=== PATIENT | female | born 1940 | race Caucasian/White ===

== ENCOUNTER → 2018-03-24 09:17 | Outpatient (CLI) | payer MEDICARE, OTHER, SELFPAY ==
[2018-03-24 09:52] LABS: Add Manual Diff / Slide Review NO; Basophils Percent Auto 0.8 % (0-2); Hematocrit 35.3 % (36-46); Hemoglobin 11.9 g/dL (12.0-16.0); Lymphocytes Percent Auto 25.1 % (25-40); Mean Corpuscular HGB Conc 33.6 % (30-36); Mean Corpuscular Hemoglobin 27.1 PG (26-34); Mean Corpuscular Volume 80.5 fL (80-100); Monocytes Percent Auto 9.8 % (3-14); Neutrophils Absolute Auto 2400 /uL (3000-5900); Neutrophils Percent Auto 62.3 % (50-75); Platelet Count 237 X10^3/uL (150-400); Red Blood Cell Count 4.38 X10^6/uL (4.0-5.2); Red Cell Distribution Width 14.9 % (11.6-14.8); White Blood Cell Count 3.9 X10^3/uL (4.5-11.0)
[2018-03-24 11:28] LABS: Alanine Aminotransferase 20 IU/L (9-52); Albumin 3.5 g/dL (3.5-5.0); Albumin Globulin Ratio 1.2 (1.0-2.8); Alkaline Phosphatase 63 U/L (38-126); Aspartate Aminotransferase 21 IU/L (14-36); Bilirubin Total 0.2 mg/dL (0.2-1.3); Blood Urea Nitrogen 20 mg/dL (7-17); Calcium 8.9 mg/dL (8.4-10.2); Carbon Dioxide 33 mmol/L (22-32); Chloride 100 mmol/L (98-107); Estimated Glomerular Filt Rate > 60.0 mL/min (>60); Globulin 2.9 g/dL (1.7-4.1); Glucose 100 mg/dL (80-110); HEMOLYSIS < 15 (0-50); Sodium 140 mmol/L (137-145); Total Protein 6.4 g/dL (6.3-8.2)
== END ==
PROVIDERS: Family Provider Family Medicine; PCP Family Medicine; Visit Provider Obstetrics & Gynecology Gynecologic Oncology
DX: C54.1 Malignant neoplasm of endometrium (principal)
CPT/HCPCS: 36415; 80053; 85025

== ENCOUNTER → 2018-04-17 14:21 | Outpatient (CLI) | payer MEDICARE, OTHER, SELFPAY ==
[2018-04-17 14:47] LABS: Add Manual Diff / Slide Review NO; Basophils Percent Auto 1.2 % (0-2); Eosinophils Percent Auto 0.7 % (2-4); Hematocrit 34.9 % (36-46); Hemoglobin 11.5 g/dL (12.0-16.0); Lymphocytes Percent Auto 30.6 % (25-40); Mean Corpuscular Hemoglobin 26.8 PG (26-34); Mean Corpuscular Volume 81.4 fL (80-100); Monocytes Percent Auto 7.2 % (3-14); Neutrophils Absolute Auto 2300 /uL (3000-5900); Neutrophils Percent Auto 60.3 % (50-75); Platelet Count 225 X10^3/uL (150-400); Red Blood Cell Count 4.29 X10^6/uL (4.0-5.2); Red Cell Distribution Width 14.8 % (11.6-14.8); White Blood Cell Count 3.8 X10^3/uL (4.5-11.0)
[2018-04-17 15:02] LABS: Alanine Aminotransferase 24 IU/L (9-52); Albumin 3.4 g/dL (3.5-5.0); Albumin Globulin Ratio 1.3 (1.0-2.8); Alkaline Phosphatase 53 U/L (38-126); Aspartate Aminotransferase 19 IU/L (14-36); BUN Creatinine Ratio 21.4 (6-22); Bilirubin Total 0.2 mg/dL (0.2-1.3); Blood Urea Nitrogen 15 mg/dL (7-17); Calcium 8.8 mg/dL (8.4-10.2); Carbon Dioxide 33 mmol/L (22-32); Chloride 102 mmol/L (98-107); Estimated Glomerular Filt Rate > 60.0 mL/min (>60); Globulin 2.6 g/dL (1.7-4.1); Glucose 99 mg/dL (80-110); HEMOLYSIS < 15 (0-50); Potassium 3.7 mmol/L (3.4-5.1); Sodium 141 mmol/L (137-145)
== END ==
PROVIDERS: Family Provider Family Medicine; PCP Family Medicine; Visit Provider Obstetrics & Gynecology Gynecologic Oncology
DX: C54.1 Malignant neoplasm of endometrium (principal)
CPT/HCPCS: 36415; 80053; 85025

== ENCOUNTER → 2018-05-18 15:16 | Outpatient (CLI) | payer MEDICARE, OTHER, SELFPAY ==
[2018-05-18 16:52] LABS: Add Manual Diff / Slide Review NO; Basophils Percent Auto 1.6 % (0-2); Hematocrit 35.7 % (36-46); Hemoglobin 12.1 g/dL (12.0-16.0); Lymphocytes Percent Auto 25.8 % (25-40); Mean Corpuscular HGB Conc 33.8 % (30-36); Mean Corpuscular Hemoglobin 27.6 PG (26-34); Mean Corpuscular Volume 81.5 fL (80-100); Monocytes Percent Auto 7.2 % (3-14); Neutrophils Absolute Auto 3500 /uL (3000-5900); Neutrophils Percent Auto 64.4 % (50-75); Platelet Count 278 X10^3/uL (150-400); Red Blood Cell Count 4.38 X10^6/uL (4.0-5.2); Red Cell Distribution Width 14.3 % (11.6-14.8); White Blood Cell Count 5.4 X10^3/uL (4.5-11.0)
[2018-05-18 17:28] LABS: Alanine Aminotransferase 21 IU/L (9-52); Albumin 3.4 g/dL (3.5-5.0); Albumin Globulin Ratio 1.5 (1.0-2.8); Alkaline Phosphatase 73 U/L (38-126); Aspartate Aminotransferase 21 IU/L (14-36); Bilirubin Total 0.2 mg/dL (0.2-1.3); Blood Urea Nitrogen 14 mg/dL (7-17); Calcium 9.1 mg/dL (8.4-10.2); Carbon Dioxide 30 mmol/L (22-32); Chloride 103 mmol/L (98-107); Estimated Glomerular Filt Rate > 60.0 mL/min (>60); Globulin 2.3 g/dL (1.7-4.1); Glucose 91 mg/dL (80-110); HEMOLYSIS < 15 (0-50); Potassium 4.3 mmol/L (3.4-5.1); Sodium 140 mmol/L (137-145); Total Protein 5.7 g/dL (6.3-8.2)
== END ==
PROVIDERS: Family Provider Family Medicine; PCP Family Medicine; Visit Provider Obstetrics & Gynecology Gynecologic Oncology
DX: C54.1 Malignant neoplasm of endometrium (principal)
CPT/HCPCS: 36415; 80053; 85025

== ENCOUNTER → 2018-06-16 09:07 | Outpatient (CLI) | payer MEDICARE, OTHER, SELFPAY ==
[2018-06-16 11:38] LABS: Add Manual Diff / Slide Review NO; Eosinophils Percent Auto 2.3 % (2-4); Hematocrit 35.8 % (36-46); Hemoglobin 11.9 g/dL (12.0-16.0); Lymphocytes Percent Auto 27.7 % (25-40); Mean Corpuscular HGB Conc 33.2 % (30-36); Mean Corpuscular Hemoglobin 27.1 PG (26-34); Mean Corpuscular Volume 81.5 fL (80-100); Monocytes Percent Auto 9.3 % (3-14); Neutrophils Absolute Auto 2100 /uL (3000-5900); Neutrophils Percent Auto 59.7 % (50-75); Platelet Count 238 X10^3/uL (150-400); Red Blood Cell Count 4.38 X10^6/uL (4.0-5.2); White Blood Cell Count 3.6 X10^3/uL (4.5-11.0)
[2018-06-16 11:49] LABS: Alanine Aminotransferase 21 IU/L (9-52); Albumin 3.1 g/dL (3.5-5.0); Albumin Globulin Ratio 1.4 (1.0-2.8); Alkaline Phosphatase 59 U/L (38-126); Aspartate Aminotransferase 18 IU/L (14-36); Bilirubin Total 0.3 mg/dL (0.2-1.3); Blood Urea Nitrogen 14 mg/dL (7-17); Calcium 8.8 mg/dL (8.4-10.2); Carbon Dioxide 36 mmol/L (22-32); Chloride 103 mmol/L (98-107); Cholesterol 197 mg/dL (140-199); Estimated Glomerular Filt Rate > 60.0 mL/min (>60); Globulin 2.2 g/dL (1.7-4.1); Glucose 77 mg/dL (80-110); HDL Cholesterol 77 mg/dL (40-60); HEMOLYSIS < 15 (0-50); LDL Cholesterol Calculated 107 mg/dL (<100); Potassium 4.2 mmol/L (3.4-5.1); Sodium 144 mmol/L (137-145); Total Protein 5.3 g/dL (6.3-8.2); Triglycerides 67 mg/dL (35-150)
== END ==
PROVIDERS: Family Provider Family Medicine; PCP Family Medicine; Visit Provider Obstetrics & Gynecology Gynecologic Oncology
DX: E78.2 Mixed hyperlipidemia (principal)
CPT/HCPCS: 36415; 80053; 80061; 85025

== ENCOUNTER → 2018-07-13 14:23 | Outpatient (CLI) | payer MEDICARE, OTHER, SELFPAY ==
[2018-07-13 14:58] LABS: Add Manual Diff / Slide Review NO; Basophils Percent Auto 0.6 % (0-2); Eosinophils Percent Auto 0.8 % (2-4); Hematocrit 34.9 % (36-46); Hemoglobin 11.7 g/dL (12.0-16.0); Lymphocytes Percent Auto 22.7 % (25-40); Mean Corpuscular HGB Conc 33.6 % (30-36); Mean Corpuscular Hemoglobin 27.4 PG (26-34); Mean Corpuscular Volume 81.8 fL (80-100); Monocytes Percent Auto 7.3 % (3-14); Neutrophils Absolute Auto 3200 /uL (3000-5900); Neutrophils Percent Auto 68.6 % (50-75); Platelet Count 324 X10^3/uL (150-400); Red Blood Cell Count 4.27 X10^6/uL (4.0-5.2); Red Cell Distribution Width 13.7 % (11.6-14.8); White Blood Cell Count 4.7 X10^3/uL (4.5-11.0)
[2018-07-13 16:04] LABS: Alanine Aminotransferase 20 IU/L (9-52); Albumin 3.3 g/dL (3.5-5.0); Albumin Globulin Ratio 1.3 (1.0-2.8); Alkaline Phosphatase 78 U/L (38-126); Aspartate Aminotransferase 14 IU/L (14-36); BUN Creatinine Ratio 13.8 (6-22); Bilirubin Total 0.2 mg/dL (0.2-1.3); Blood Urea Nitrogen 11 mg/dL (7-17); Calcium 9.1 mg/dL (8.4-10.2); Carbon Dioxide 37 mmol/L (22-32); Chloride 99 mmol/L (98-107); Estimated Glomerular Filt Rate > 60.0 mL/min (>60); Globulin 2.6 g/dL (1.7-4.1); Glucose 75 mg/dL (80-110); HEMOLYSIS < 15 (0-50); Potassium 4.2 mmol/L (3.4-5.1); Sodium 142 mmol/L (137-145); Total Protein 5.9 g/dL (6.3-8.2)
== END ==
PROVIDERS: Family Provider Family Medicine; PCP Family Medicine; Visit Provider Obstetrics & Gynecology Gynecologic Oncology
DX: E78.2 Mixed hyperlipidemia (principal)
CPT/HCPCS: 36415; 80053; 85025

== ENCOUNTER → 2018-08-19 10:53 | Outpatient (CLI) | payer MEDICARE, OTHER, SELFPAY ==
[2018-08-19 11:40] LABS: Add Manual Diff / Slide Review NO; Basophils Percent Auto 0.7 % (0-2); Eosinophils Percent Auto 1.2 % (2-4); Hematocrit 35.6 % (36-46); Hemoglobin 11.8 g/dL (12.0-16.0); Lymphocytes Percent Auto 20.7 % (25-40); Mean Corpuscular HGB Conc 33.1 % (30-36); Mean Corpuscular Hemoglobin 26.8 PG (26-34); Monocytes Percent Auto 6.4 % (3-14); Neutrophils Absolute Auto 3600 /uL (3000-5900); Platelet Count 272 X10^3/uL (150-400); Red Blood Cell Count 4.39 X10^6/uL (4.0-5.2); Red Cell Distribution Width 14.2 % (11.6-14.8)
[2018-08-19 11:45] LABS: Alanine Aminotransferase 18 IU/L (9-52); Albumin 3.5 g/dL (3.5-5.0); Albumin Globulin Ratio 1.4 (1.0-2.8); Alkaline Phosphatase 66 U/L (38-126); Aspartate Aminotransferase 16 IU/L (14-36); BUN Creatinine Ratio 17.5 (6-22); Bilirubin Total 0.1 mg/dL (0.2-1.3); Blood Urea Nitrogen 14 mg/dL (7-17); Calcium 8.8 mg/dL (8.4-10.2); Carbon Dioxide 33 mmol/L (22-32); Chloride 99 mmol/L (98-107); Estimated Glomerular Filt Rate > 60.0 mL/min (>60); Globulin 2.5 g/dL (1.7-4.1); Glucose 90 mg/dL (80-110); HEMOLYSIS < 15 (0-50); Potassium 3.5 mmol/L (3.4-5.1); Sodium 140 mmol/L (137-145)
== END ==
PROVIDERS: Family Provider Family Medicine; PCP Family Medicine; Visit Provider Obstetrics & Gynecology Gynecologic Oncology
DX: C54.1 Malignant neoplasm of endometrium (principal)
CPT/HCPCS: 36415; 80053; 85025

== ENCOUNTER → 2018-09-01 11:50 | Outpatient (CLI) | payer MEDICARE, OTHER, SELFPAY ==
--- NOTE | 2018-09-01 | DI.MG.S_ITS ---
BILATERAL DIGITAL SCREENING MAMMOGRAM 3D/2D WITH CAD: 09/01/2018 CLINICAL: Routine screening. Comparison is made to exams dated: 06/13/2017 mammogram and 03/04/2016 mammogram - [facility]. The tissue of both breasts is heterogeneously dense. This may lower the sensitivity of mammography. Current study was also evaluated with a Computer Aided Detection (CAD) system. There are benign vascular calcifications in both breasts. No significant masses, calcifications, or other findings are seen in either breast. There has been no significant interval change. IMPRESSION: There is no mammographic evidence of malignancy. A 1 year screening mammogram is recommended. NOTE: For mammograms, a report in lay terms will be sent to the patient. Approximately 15% of breast malignancies will not be visualized mammographically. In the management of a palpable breast mass, a negative mammogram must not discourage biopsy of a clinically suspicious lesion. Electronically Signed By: Sonal mcclellan/messi:09/02/2018 12:39:36 copy to: Oralia Stahl MD, ph: [phone], fax: [phone] letter sent: Normal Exam ACR BI-RADS Category 2: Benign Finding(s) 3342F
== END ==
PROVIDERS: Family Provider Family Medicine; PCP Family Medicine; Visit Provider Family Medicine
DX: Z12.31 Encounter for screening mammogram for malignant neoplasm of breast (principal)
CPT/HCPCS: 77063; 77067

== ENCOUNTER → 2018-09-15 10:49 | Outpatient (CLI) | payer MEDICARE, OTHER, SELFPAY ==
[2018-09-15 12:00] LABS: Add Manual Diff / Slide Review NO; Basophils Percent Auto 0.7 % (0-2); Eosinophils Percent Auto 2.3 % (2-4); Hematocrit 33.9 % (36-46); Hemoglobin 11.3 g/dL (12.0-16.0); Mean Corpuscular HGB Conc 33.3 % (30-36); Mean Corpuscular Hemoglobin 26.8 PG (26-34); Mean Corpuscular Volume 80.3 fL (80-100); Neutrophils Absolute Auto 2700 /uL (3000-5900); Platelet Count 225 X10^3/uL (150-400); Red Blood Cell Count 4.23 X10^6/uL (4.0-5.2); Red Cell Distribution Width 14.6 % (11.6-14.8); White Blood Cell Count 4.4 X10^3/uL (4.5-11.0)
[2018-09-15 12:43] LABS: Alanine Aminotransferase 13 IU/L (9-52); Albumin 3.3 g/dL (3.5-5.0); Albumin Globulin Ratio 1.2 (1.0-2.8); Alkaline Phosphatase 67 U/L (38-126); Aspartate Aminotransferase 16 IU/L (14-36); BUN Creatinine Ratio 17.1 (6-22); Bilirubin Total 0.2 mg/dL (0.2-1.3); Blood Urea Nitrogen 12 mg/dL (7-17); Calcium 8.7 mg/dL (8.4-10.2); Carbon Dioxide 33 mmol/L (22-32); Chloride 101 mmol/L (98-107); Estimated Glomerular Filt Rate > 60.0 mL/min (>60); Globulin 2.7 g/dL (1.7-4.1); Glucose 65 mg/dL (80-110); HEMOLYSIS < 15 (0-50); Potassium 3.5 mmol/L (3.4-5.1); Sodium 143 mmol/L (137-145)
== END ==
PROVIDERS: Family Provider Family Medicine; PCP Family Medicine; Visit Provider Obstetrics & Gynecology Gynecologic Oncology
DX: E78.2 Mixed hyperlipidemia (principal)
CPT/HCPCS: 36415; 80053; 85025

== ENCOUNTER → 2018-09-25 09:05 | Outpatient (CLI) | payer MEDICARE, OTHER, SELFPAY ==
--- NOTE | 2018-09-25 | DI.CT.S_ITS ---
PROCEDURE: CT CHEST ABD PEL W CON INDICATIONS: ENDOMETRIAL SARCOMA TECHNIQUE: After the administration of intravenous contrast, 5 mm thick sections acquired from the lung apices to the symphysis. 5 mm coronal and sagittal reformats were performed, with additional 7 mm MIP reformats through the lungs. For radiation dose reduction, the following was used: automated exposure control, adjustment of mA and/or kV according to patient size. COMPARISON: [facility], CT, CHEST/ABD/PEL WITH CONTRAST, 03/24/2017, 8:59. FINDINGS: Image quality: Excellent. CHEST: Lungs and pleura: Previously noted 5 mm pulmonary nodules in the anterior right upper lobe on axial image 31 of series 4 and in the lateral right lower lobe on axial image 42 of series 4 are unchanged in size from comparison exam of 03/24/17. Two 3 mm pulmonary nodules in the left lower lobe on axial image 50 of series 4 are also unchanged from comparison exam of 03/24/17. No acute airspace opacities. No pleural effusions or pneumothorax. Central and peripheral airways appear patent and normal in caliber. Mediastinum: Heart size is normal. No pericardial effusion. No mediastinal or hilar adenopathy by size criteria. Thoracic aorta and central pulmonary arteries are normal in size. There is mild calcification of the aortic arch and branch vessels. Esophagus is normal in caliber. No hiatal hernia. Chest wall: No axillary or supraclavicular adenopathy by size criteria. Thyroid gland demonstrates a stable 9 mm hypoattenuating nodule in the left thyroid lobe. Right chest port catheter tip terminates within the cavoatrial junction.. ABDOMEN: Solid organs: There are multiple subcentimeter hypoattenuating foci within the liver, many of which are stable in appearance and unchanged in size when compared with prior exam of 03/24/17 and likely representing hepatic cysts or hemangiomas. Gallbladder is unremarkable. Biliary system is non dilated. Pancreas enhances normally. Spleen is normal in size and enhancement. 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 No adrenal nodules. Kidneys demonstrate normal size and enhancement, without hydronephrosis. Peritoneum and bowel: Bowel loops demonstrate normal wall thickness and caliber. No free fluid or air. Nodes and vessels: No retroperitoneal or mesenteric adenopathy by size criteria. Aorta and inferior vena cava are normal in size. Surgical clips are noted along the inferior vena cava and abdominal aorta, and their branches. Unchanged right pelvic venous stent noted. Miscellaneous: No ventral hernias. PELVIS: Genitourinary: Bladder wall thickness is normal. Miscellaneous: No inguinal hernias or adenopathy. Diffuse lower abdominal body wall edema noted. Subcutaneous emphysema within the anterior abdomen likely is secondary to prior injections. Bones: No suspicious bony lesions. No vertebral body compression fractures. There are mild multilevel degenerative changes of the spine with degenerative disc disease worst at L3-L4. IMPRESSION: Stable bilateral subcentimeter pulmonary nodules as described above when compared with prior exam of 03/24/17; recommend continued attention on followup exams. Multiple subcentimeter hypoattenuating foci within the liver, many of which are stable in appearance to prior exam. These likely represent hepatic cysts or hemangiomas with malignancy thought unlikely; recommend continued attention on followup exams. Otherwise, no other findings to suggest metastatic disease in the chest, abdomen, or pelvis. Dictated by: Tyrese Parsons M.D. on 09/25/2018 at 14:28 Approved by: Tyrese Parsons M.D. on 09/25/2018 at 14:59
== END ==
PROVIDERS: Family Provider Family Medicine; PCP Family Medicine; Visit Provider Obstetrics & Gynecology Gynecologic Oncology
DX: C54.1 Malignant neoplasm of endometrium (principal); E04.1 Nontoxic single thyroid nodule; R91.8 Other nonspecific abnormal finding of lung field; M51.36 Other intervertebral disc degeneration, lumbar region
CPT/HCPCS: 71260; 74177; Q9967

== ENCOUNTER → 2018-10-15 11:30 | Outpatient (CLI) | payer MEDICARE, OTHER, SELFPAY ==
[2018-10-15 14:14] LABS: Add Manual Diff / Slide Review NO; Basophils Percent Auto 1.3 % (0-2); Eosinophils Percent Auto 1.8 % (2-4); Hematocrit 35.8 % (36-46); Hemoglobin 11.9 g/dL (12.0-16.0); Lymphocytes Percent Auto 23.7 % (25-40); Mean Corpuscular HGB Conc 33.2 % (30-36); Mean Corpuscular Hemoglobin 26.6 PG (26-34); Monocytes Percent Auto 7.9 % (3-14); Neutrophils Absolute Auto 2800 /uL (1500-7000); Neutrophils Percent Auto 65.3 % (50-75); Platelet Count 279 X10^3/uL (150-400); Red Blood Cell Count 4.47 X10^6/uL (4.0-5.2); Red Cell Distribution Width 14.7 % (11.6-14.8); White Blood Cell Count 4.3 X10^3/uL (4.5-11.0)
[2018-10-15 14:31] LABS: Alanine Aminotransferase 17 IU/L (9-52); Albumin 3.6 g/dL (3.5-5.0); Albumin Globulin Ratio 1.4 (1.0-2.8); Alkaline Phosphatase 68 U/L (38-126); Aspartate Aminotransferase 17 IU/L (14-36); BUN Creatinine Ratio 16.3 (6-22); Blood Urea Nitrogen 13 mg/dL (7-17); Calcium 9.1 mg/dL (8.4-10.2); Carbon Dioxide 33 mmol/L (22-32); Chloride 100 mmol/L (98-107); Estimated Glomerular Filt Rate > 60.0 mL/min (>60); Globulin 2.5 g/dL (1.7-4.1); Glucose 80 mg/dL (80-110); HEMOLYSIS < 15 (0-50); Potassium 3.7 mmol/L (3.4-5.1); Sodium 142 mmol/L (137-145); Total Protein 6.1 g/dL (6.3-8.2)
[2018-10-15 14:33] LABS: Bilirubin Total < 0.1 mg/dL (0.2-1.3)
[2018-10-15 14:57] LABS: Cancer Antigen 125 11 U/mL (0-35)
== END ==
PROVIDERS: PCP Family Medicine; Visit Provider Obstetrics & Gynecology Gynecologic Oncology
DX: C54.1 Malignant neoplasm of endometrium (principal)
CPT/HCPCS: 36415; 80053; 85025; 86304

== ENCOUNTER → 2018-11-12 10:27 | Outpatient (CLI) | payer MEDICARE, OTHER, SELFPAY ==
[2018-11-12 11:11] LABS: Add Manual Diff / Slide Review NO; Basophils Absolute Auto 0 /uL (0-100); Eosinophils Absolute Auto 100 /uL (0-450); Hematocrit 38.1 % (36-46); Hemoglobin 12.5 g/dL (12.0-16.0); Lymphocytes Absolute Auto 900 /uL (1100-4500); Lymphocytes Percent Auto 24.4 % (25-40); Mean Corpuscular HGB Conc 32.9 % (30-36); Mean Corpuscular Hemoglobin 26.5 PG (26-34); Mean Corpuscular Volume 80.6 fL (80-100); Monocytes Absolute Auto 300 /uL (0-900); Monocytes Percent Auto 8.9 % (3-14); Neutrophils Absolute Auto 2400 /uL (1500-7000); Neutrophils Percent Auto 63.7 % (50-75); Platelet Count 252 X10^3/uL (150-400); Red Blood Cell Count 4.72 X10^6/uL (4.0-5.2); Red Cell Distribution Width 15.1 % (11.6-14.8); White Blood Cell Count 3.7 X10^3/uL (4.5-11.0)
[2018-11-12 11:19] LABS: Alanine Aminotransferase 16 IU/L (9-52); Albumin 3.9 g/dL (3.5-5.0); Albumin Globulin Ratio 1.3 (1.0-2.8); Alkaline Phosphatase 65 U/L (38-126); Aspartate Aminotransferase 19 IU/L (14-36); Bilirubin Total 0.3 mg/dL (0.2-1.3); Blood Urea Nitrogen 16 mg/dL (7-17); Calcium 9.2 mg/dL (8.4-10.2); Carbon Dioxide 31 mmol/L (22-32); Chloride 101 mmol/L (98-107); Estimated Glomerular Filt Rate > 60.0 mL/min (>60); Glucose 81 mg/dL (80-110); HEMOLYSIS < 15 (0-50); Potassium 3.8 mmol/L (3.4-5.1); Sodium 139 mmol/L (137-145); Total Protein 6.9 g/dL (6.3-8.2)
[2018-11-12 11:45] LABS: Cancer Antigen 125 12 U/mL (0-35)
== END ==
PROVIDERS: Family Provider Family Medicine; PCP Family Medicine; Visit Provider Physician Assistant
DX: C54.1 Malignant neoplasm of endometrium (principal)
CPT/HCPCS: 36415; 80053; 85025; 86304

== ENCOUNTER → 2018-11-23 08:05 | Outpatient (CLI) | payer MEDICARE, OTHER, SELFPAY ==
[2018-11-23 09:28] LABS: Cholesterol 221 mg/dL (140-199); HDL Cholesterol 92 mg/dL (40-60); LDL Cholesterol Calculated 114 mg/dL (<100); Triglycerides 76 mg/dL (35-150)
== END ==
PROVIDERS: Family Provider Family Medicine; PCP Family Medicine; Visit Provider Physician Assistant
DX: Z79.899 Other long term (current) drug therapy (principal); E78.2 Mixed hyperlipidemia
CPT/HCPCS: 36415; 80061

== ENCOUNTER → 2019-02-10 10:52 | Outpatient (CLI) | payer MEDICARE, OTHER, SELFPAY ==
[2019-02-10 12:08] LABS: Add Manual Diff / Slide Review NO; Basophils Absolute Auto 0 /uL (0-100); Eosinophils Absolute Auto 0 /uL (0-450); Eosinophils Percent Auto 1.2 % (2-4); Hematocrit 36.6 % (36-46); Hemoglobin 12.2 g/dL (12.0-16.0); Lymphocytes Absolute Auto 800 /uL (1100-4500); Mean Corpuscular HGB Conc 33.3 % (30-36); Mean Corpuscular Hemoglobin 26.8 PG (26-34); Mean Corpuscular Volume 80.5 fL (80-100); Monocytes Absolute Auto 300 /uL (0-900); Monocytes Percent Auto 9.4 % (3-14); Neutrophils Absolute Auto 2300 /uL (1500-7000); Neutrophils Percent Auto 65.4 % (50-75); Platelet Count 262 X10^3/uL (150-400); Red Blood Cell Count 4.55 X10^6/uL (4.0-5.2); Red Cell Distribution Width 14.7 % (11.6-14.8); White Blood Cell Count 3.6 X10^3/uL (4.5-11.0)
[2019-02-10 12:45] LABS: Alanine Aminotransferase 16 IU/L (9-52); Albumin 3.3 g/dL (3.5-5.0); Albumin Globulin Ratio 1.5 (1.0-2.8); Alkaline Phosphatase 73 U/L (38-126); Aspartate Aminotransferase 16 IU/L (14-36); BUN Creatinine Ratio 22.5 (6-22); Blood Urea Nitrogen 18 mg/dL (7-17); Calcium 8.9 mg/dL (8.4-10.2); Carbon Dioxide 31 mmol/L (22-32); Chloride 102 mmol/L (98-107); Estimated Glomerular Filt Rate > 60.0 mL/min (>60); Globulin 2.2 g/dL (1.7-4.1); HEMOLYSIS < 15 (0-50); Potassium 3.9 mmol/L (3.4-5.1); Sodium 139 mmol/L (137-145); Total Protein 5.5 g/dL (6.3-8.2)
[2019-02-10 12:53] LABS: Bilirubin Total < 0.1 mg/dL (0.2-1.3)
[2019-02-10 13:14] LABS: Cancer Antigen 125 9 U/mL (0-35)
[2019-02-10 13:29] LABS: Glucose 43 mg/dL (80-110)
== END ==
PROVIDERS: Family Provider Family Medicine; PCP Family Medicine; Visit Provider Physician Assistant
DX: C54.1 Malignant neoplasm of endometrium (principal)
CPT/HCPCS: 36415; 80053; 85025; 86304

== ENCOUNTER → 2019-02-11 11:39 | Outpatient (CLI) | payer MEDICARE, OTHER, SELFPAY ==
[2019-02-11 12:43] LABS: BUN Creatinine Ratio 17.8 (6-22); Blood Urea Nitrogen 16 mg/dL (7-17); Calcium 8.7 mg/dL (8.4-10.2); Carbon Dioxide 31 mmol/L (22-32); Chloride 101 mmol/L (98-107); Estimated Glomerular Filt Rate > 60.0 mL/min (>60); Glucose 68 mg/dL (80-110); HEMOLYSIS < 15 (0-50); Potassium 3.9 mmol/L (3.4-5.1); Sodium 139 mmol/L (137-145)
== END ==
PROVIDERS: Family Provider Family Medicine; PCP Family Medicine; Visit Provider Obstetrics & Gynecology Gynecologic Oncology
DX: E16.2 Hypoglycemia, unspecified (principal)
CPT/HCPCS: 36415; 80048

== ENCOUNTER → 2019-02-20 09:09 | Outpatient (CLI) | payer MEDICARE, OTHER, SELFPAY ==
[2019-02-20 09:52] LABS: Glucose 90 mg/dL (80-110)
[2019-02-23 14:56] LABS: Insulin Level Total 6.4 uIU/mL (2.0-19.6)
[2019-02-23 19:07] LABS: Beta- Hydroxybutyrate 0.06 mmol/L
== END ==
PROVIDERS: Family Provider Obstetrics & Gynecology Gynecologic Oncology; PCP Family Medicine; Visit Provider Family Medicine
DX: E16.2 Hypoglycemia, unspecified (principal)
CPT/HCPCS: 36415; 82009; 82947; 83525; 84206; 84681

== ENCOUNTER → 2019-03-12 10:22 | Outpatient (CLI) | payer MEDICARE, OTHER, SELFPAY ==
[2019-03-12 11:45] LABS: Add Manual Diff / Slide Review NO; Basophils Absolute Auto 100 /uL (0-100); Basophils Percent Auto 1.5 % (0-2); Eosinophils Absolute Auto 100 /uL (0-450); Eosinophils Percent Auto 1.9 % (2-4); Hematocrit 37.8 % (36-46); Hemoglobin 12.2 g/dL (12.0-16.0); Lymphocytes Absolute Auto 1100 /uL (1100-4500); Mean Corpuscular HGB Conc 32.4 % (30-36); Mean Corpuscular Hemoglobin 26.4 PG (26-34); Mean Corpuscular Volume 81.4 fL (80-100); Monocytes Absolute Auto 400 /uL (0-900); Monocytes Percent Auto 10.1 % (3-14); Neutrophils Absolute Auto 2100 /uL (1500-7000); Neutrophils Percent Auto 56.5 % (50-75); Platelet Count 245 X10^3/uL (150-400); Red Blood Cell Count 4.64 X10^6/uL (4.0-5.2); Red Cell Distribution Width 14.5 % (11.6-14.8); White Blood Cell Count 3.7 X10^3/uL (4.5-11.0)
[2019-03-12 12:09] LABS: Alanine Aminotransferase 10 IU/L (9-52); Albumin 3.7 g/dL (3.5-5.0); Albumin Globulin Ratio 1.4 (1.0-2.8); Alkaline Phosphatase 69 U/L (38-126); Aspartate Aminotransferase 19 IU/L (14-36); BUN Creatinine Ratio 22.5 (6-22); Bilirubin Total 0.4 mg/dL (0.2-1.3); Blood Urea Nitrogen 18 mg/dL (7-17); Calcium 9.4 mg/dL (8.4-10.2); Carbon Dioxide 33 mmol/L (22-32); Chloride 100 mmol/L (98-107); Cholesterol 208 mg/dL (140-199); Estimated Glomerular Filt Rate > 60.0 mL/min (>60); Globulin 2.7 g/dL (1.7-4.1); Glucose 82 mg/dL (80-110); HDL Cholesterol 75 mg/dL (40-60); HEMOLYSIS < 15 (0-50); LDL Cholesterol Calculated 111 mg/dL (<100); Potassium 4.3 mmol/L (3.4-5.1); Sodium 138 mmol/L (137-145); Total Protein 6.4 g/dL (6.3-8.2); Triglycerides 112 mg/dL (35-150)
[2019-03-12 12:39] LABS: Cancer Antigen 125 12 U/mL (0-35)
== END ==
PROVIDERS: Family Provider Obstetrics & Gynecology Gynecologic Oncology; PCP Family Medicine; Visit Provider Physician Assistant
DX: C54.1 Malignant neoplasm of endometrium (principal); E78.2 Mixed hyperlipidemia; Z79.899 Other long term (current) drug therapy
CPT/HCPCS: 36415; 80053; 80061; 85025; 86304

== ENCOUNTER → 2019-04-07 17:31 | Outpatient (CLI) | payer MEDICARE, OTHER, SELFPAY ==
[2019-04-07 18:03] LABS: Add Manual Diff / Slide Review NO; Basophils Absolute Auto 100 /uL (0-100); Basophils Percent Auto 1.1 % (0-2); Eosinophils Absolute Auto 100 /uL (0-450); Eosinophils Percent Auto 1.4 % (2-4); Hematocrit 37.5 % (36-46); Hemoglobin 12.3 g/dL (12.0-16.0); Lymphocytes Absolute Auto 1200 /uL (1100-4500); Lymphocytes Percent Auto 21.6 % (25-40); Mean Corpuscular HGB Conc 32.8 % (30-36); Mean Corpuscular Volume 82.3 fL (80-100); Monocytes Absolute Auto 400 /uL (0-900); Monocytes Percent Auto 7.6 % (3-14); Neutrophils Absolute Auto 3900 /uL (1500-7000); Neutrophils Percent Auto 68.3 % (50-75); Platelet Count 260 X10^3/uL (150-400); Red Blood Cell Count 4.56 X10^6/uL (4.0-5.2); Red Cell Distribution Width 14.7 % (11.6-14.8); White Blood Cell Count 5.7 X10^3/uL (4.5-11.0)
[2019-04-07 18:24] LABS: Hemoglobin A1C% w Est Avg Glu 5.1 % (4.0-6.0)
[2019-04-07 19:12] LABS: Alanine Aminotransferase 16 IU/L (9-52); Albumin 3.6 g/dL (3.5-5.0); Albumin Globulin Ratio 1.6 (1.0-2.8); Alkaline Phosphatase 66 U/L (38-126); Aspartate Aminotransferase 19 IU/L (14-36); BUN Creatinine Ratio 17.5 (6-22); Bilirubin Total 0.3 mg/dL (0.2-1.3); Blood Urea Nitrogen 14 mg/dL (7-17); Calcium 9.2 mg/dL (8.4-10.2); Carbon Dioxide 33 mmol/L (22-32); Chloride 102 mmol/L (98-107); Estimated Glomerular Filt Rate > 60.0 mL/min (>60); Globulin 2.3 g/dL (1.7-4.1); Glucose 88 mg/dL (80-110); HEMOLYSIS < 15 (0-50); Potassium 4.3 mmol/L (3.4-5.1); Sodium 139 mmol/L (137-145); Total Protein 5.9 g/dL (6.3-8.2)
[2019-04-07 19:18] LABS: Rheumatoid Factor < 8.6 IU/mL (<12.0)
[2019-04-07 19:42] LABS: Cancer Antigen 125 11 U/mL (0-35)
[2019-04-10 11:41] LABS: CCP Antibody (IgG) < 16 Units (< 20)
== END ==
PROVIDERS: Family Provider Physician Assistant; PCP Family Medicine; Visit Provider Family Medicine
DX: C54.1 Malignant neoplasm of endometrium (principal); E16.2 Hypoglycemia, unspecified; M25.541 Pain in joints of right hand; M25.542 Pain in joints of left hand
CPT/HCPCS: 36415; 80053; 83036; 85025; 86200; 86304; 86430

== ENCOUNTER → 2019-04-13 12:35 | Outpatient (CLI) | payer MEDICARE, OTHER, SELFPAY | PROVIDERS: PCP Family Medicine; Visit Provider Family Medicine | DX: M81.0 Age-related osteoporosis without current pathological fracture (principal); Z78.0 Asymptomatic menopausal state; Z82.62 Family history of osteoporosis | CPT/HCPCS: 77080 ==

== ENCOUNTER → 2019-05-06 16:41 | Outpatient (CLI) | payer MEDICARE, OTHER, SELFPAY ==
[2019-05-06 17:32] LABS: Add Manual Diff / Slide Review NO; Basophils Absolute Auto 0 /uL (0-100); Basophils Percent Auto 1.3 % (0-2); Eosinophils Absolute Auto 100 /uL (0-450); Eosinophils Percent Auto 1.7 % (2-4); Hemoglobin 12.4 g/dL (12.0-16.0); Lymphocytes Absolute Auto 1100 /uL (1100-4500); Lymphocytes Percent Auto 30.4 % (25-40); Mean Corpuscular HGB Conc 33.5 % (30-36); Mean Corpuscular Volume 80.6 fL (80-100); Monocytes Absolute Auto 300 /uL (0-900); Monocytes Percent Auto 8.2 % (3-14); Neutrophils Absolute Auto 2100 /uL (1500-7000); Neutrophils Percent Auto 58.4 % (50-75); Platelet Count 276 X10^3/uL (150-400); Red Blood Cell Count 4.58 X10^6/uL (4.0-5.2); Red Cell Distribution Width 14.3 % (11.6-14.8); White Blood Cell Count 3.6 X10^3/uL (4.5-11.0)
[2019-05-06 17:54] LABS: Alanine Aminotransferase 27 IU/L (9-52); Albumin 3.6 g/dL (3.5-5.0); Albumin Globulin Ratio 1.5 (1.0-2.8); Alkaline Phosphatase 68 U/L (38-126); Aspartate Aminotransferase 20 IU/L (14-36); Bilirubin Total 0.3 mg/dL (0.2-1.3); Blood Urea Nitrogen 18 mg/dL (7-17); Calcium 9.1 mg/dL (8.4-10.2); Carbon Dioxide 31 mmol/L (22-32); Chloride 98 mmol/L (98-107); Estimated Glomerular Filt Rate > 60.0 mL/min (>60); Globulin 2.4 g/dL (1.7-4.1); Glucose 80 mg/dL (80-110); HEMOLYSIS < 15 (0-50); Potassium 4.3 mmol/L (3.4-5.1); Sodium 134 mmol/L (137-145)
[2019-05-06 18:23] LABS: Cancer Antigen 125 12 U/mL (0-35)
== END ==
PROVIDERS: PCP Family Medicine; Visit Provider Physician Assistant
DX: C54.1 Malignant neoplasm of endometrium (principal); I82.0 Budd-Chiari syndrome
CPT/HCPCS: 36415; 80053; 85025; 86304

== ENCOUNTER → 2019-06-04 14:44 | Outpatient (CLI) | payer MEDICARE, OTHER, SELFPAY ==
[2019-06-04 15:38] LABS: Alanine Aminotransferase 9 IU/L (9-52); Albumin 3.5 g/dL (3.5-5.0); Albumin Globulin Ratio 1.2 (1.0-2.8); Alkaline Phosphatase 78 U/L (38-126); Aspartate Aminotransferase 15 IU/L (14-36); BUN Creatinine Ratio 13.3 (6-22); Bilirubin Total 0.4 mg/dL (0.2-1.3); Blood Urea Nitrogen 12 mg/dL (7-17); Calcium 8.9 mg/dL (8.4-10.2); Carbon Dioxide 33 mmol/L (22-32); Chloride 99 mmol/L (98-107); Estimated Glomerular Filt Rate > 60.0 mL/min (>60); Globulin 2.9 g/dL (1.7-4.1); Glucose 92 mg/dL (80-110); HEMOLYSIS < 15 (0-50); Potassium 4.1 mmol/L (3.4-5.1); Sodium 138 mmol/L (137-145); Total Protein 6.4 g/dL (6.3-8.2)
[2019-06-04 15:48] LABS: Add Manual Diff / Slide Review NO; Basophils Absolute Auto 0 /uL (0-100); Basophils Percent Auto 0.9 % (0-2); Eosinophils Absolute Auto 0 /uL (0-450); Eosinophils Percent Auto 0.9 % (2-4); Hematocrit 34.6 % (36-46); Hemoglobin 11.5 g/dL (12.0-16.0); Lymphocytes Absolute Auto 900 /uL (1100-4500); Lymphocytes Percent Auto 21.8 % (25-40); Mean Corpuscular HGB Conc 33.4 % (30-36); Mean Corpuscular Hemoglobin 26.9 PG (26-34); Mean Corpuscular Volume 80.4 fL (80-100); Monocytes Absolute Auto 300 /uL (0-900); Monocytes Percent Auto 6.5 % (3-14); Neutrophils Absolute Auto 2900 /uL (1500-7000); Neutrophils Percent Auto 69.9 % (50-75); Platelet Count 340 X10^3/uL (150-400); Red Cell Distribution Width 14.4 % (11.6-14.8); White Blood Cell Count 4.1 X10^3/uL (4.5-11.0)
[2019-06-04 16:07] LABS: Cancer Antigen 125 11 U/mL (0-35)
[2019-06-04 16:29] LABS: Vitamin D 25 Hydroxy (D3) 23.9 ng/mL (30.0-100.0)
== END ==
PROVIDERS: PCP Family Medicine; Visit Provider Obstetrics & Gynecology Gynecologic Oncology
DX: C54.1 Malignant neoplasm of endometrium (principal); M81.0 Age-related osteoporosis without current pathological fracture
CPT/HCPCS: 36415; 80053; 82306; 85025; 86304

== ENCOUNTER 2019-06-21 18:12 | Inpatient (IN) | payer MEDICARE, OTHER, SELFPAY ==
[2019-06-21] VITALS (7 sets, daily range): BP systolic 105–125; BP diastolic 55–65; PULSE 102–108; RESP 14–25; TEMP 38.3–39.6; O2SAT 92–100; BMI 28.0; BMI 27.4
--- NOTE | 2019-06-21 18:33 | ED_ITS ---
HPI - Skin/Abscess/Foreign Bdy General Chief complaint: Skin/Abscess/Foreign Body Stated complaint: Red coloring on rt lower buttock, feels crummy Time Seen by Provider: 06/21/19 18:14 Source: patient and family Mode of arrival: ambulatory Limitations: no limitations History of Present Illness HPI narrative: 78-year-old female nonsmoker with history of endometrial cancer on Lovenox presents with her for evaluation pain and redness on her right buttocks and feeling very poorly for the past few days. She admittedly he has had a poor appetite and has had little to eat or drink. She complains of feeling dizzy, weak and lightheaded as well as short of breath. She denies any cough. She admits to subjective fever and chills. She denies runny nose or sore throat. She is nauseated but denies any vomiting. She denies abdominal pain or dysuria, frequency or urgency. Her states the redness on her right buttock was notably worse yesterday. She does have a history of rapid progression of cellulitis MD complaint: rash Onset (ago): day(s) Tetanus up to date: yes Location: buttocks Severity: moderate Quality: burning Relieving factors: none Exacerbating factors: palpation Context: none Associated symptoms: fever, chills, nausea and malaise Treatments prior to arrival: none Related Data Home Medications Medication Instructions Recorded Confirmed everolimus (antineoplastic) 5 mg PO QDAY #30 tab 06/18/16 05/21/19 [Afinitor] letrozole [Femara] 2.5 mg PO QDAY #0 tab 06/18/16 05/21/19 [culterelle] #0 02/05/17 05/21/19 sennosides [senna] 8.6 mg PO QDAY PRN #0 02/05/17 05/21/19 calcium carbonate-vitamin D3 600 cap PO cap 04/06/18 05/21/19 mg (1,500 mg)-400 unit capsule cetirizine 10 mg capsule PO cap 04/06/18 05/21/19 Previous Rx's Medication Instructions Recorded enoxaparin 100 mg/mL subcutaneous 100 mg SUBCUT DAILY #90 each 11/02/18 syringe simvastatin 40 mg tablet 40 mg PO QAM #90 tab 02/10/19 diclofenac sodium 3 % topical gel 1 applictn TOP BID #100 gram 02/11/19 diclofenac sodium 1 % topical gel 2 gram TOP BID #100 gram 03/17/19 mirtazapine 30 mg tablet 45 mg PO QHS #90 tab 03/18/19 gabapentin 600 mg tablet 600 mg PO DAILY #450 tab 04/15/19 irbesartan 300 mg tablet 300 mg PO DAILY #90 tab 04/15/19 omeprazole 20 mg capsule,delayed 20 mg PO QDAY PRN #90 cap 04/15/19 release duloxetine 20 mg capsule,delayed 40 mg PO DAILY #180 cap 04/27/19 release cholecalciferol (vitamin D3) 50,000 unit PO QWEEK #10 cap 06/10/19 50,000 unit capsule mirtazapine 15 mg tablet 15 mg PO DAILY #90 tab 06/18/19 oxycodone 10 mg tablet,crush 10 mg PO BID #60 tab 06/18/19 resistant,extended release 12 hr oxycodone 5 mg tablet 5 mg PO Q4H PRN #180 tab 06/18/19 Allergies Allergy/AdvReac Type Severity Reaction Status Date / Time Penicillins [PENICILLINS] Allergy Unknown Verified 06/21/19 18:33 Review of Systems Review of Systems ROS Unobtainable: All systems reviewed & are unremarkable except as noted in HPI and below Constitutional Constitutional: Reports chills, Denies fatigue, Reports fever(s), Denies frequent falls, Denies lethargy, Reports poor appetite and Reports weakness Eyes Eyes: Denies change in vision, Denies eye discharge, Denies irritation and Denies loss of vision ENT Ears, Nose, Mouth, and Throat: Denies change in voice, Denies dizziness, Denies neck pain, Denies sore throat and Denies throat swelling Cardiovascular Cardiovascular: Denies chest pain, Denies irregular heart rhythm, Denies lightheadedness, Denies palpitations, Denies dyspnea, Denies dyspnea on exertion and Denies orthopnea Respiratory Respiratory: Denies cough, Denies dyspnea, Denies dyspnea on exertion and Denies wheezing Gastrointestinal Gastrointestinal: Denies abdominal pain, Denies change in bowel habits, Denies diarrhea, Denies nausea and Denies vomiting Genitourinary Genitourinary: Denies hematuria, Denies flank pain, Denies urinary incontinence and Denies urinary urgency Musculoskeletal Musculoskeletal: Denies back pain, Denies muscle weakness, Denies neck pain, Denies numbness and Denies tingling Integumentary/Breasts Skin/Breast: Denies pruritus, Reports erythema, Reports skin pain and Denies wounds Neurologic Neurologic: Denies behavioral changes, Denies confusion, Denies dizziness, Denies frequent falls, Denies loss of vision, Denies numbness, Denies tingling and Reports weakness Psychiatric Psychiatric: Denies anxiety, Denies behavioral changes, Denies confusion, Denies depression, Denies homicidal ideation and Denies suicidal ideation Endocrine Endocrine: Denies fatigue, Denies flushing and Denies palpitations Hematologic/Lymphatic Hematologic/Lymphatic: Denies easy bruising Allergic/Immunologic Allergic/Immunologic: Denies urticaria, Denies throat swelling and Denies wheezing REPLACED BY [facility] Medical History Chickenpox (Resolved) Chronic cough (Chronic ~2014) Chronic pain of both lower extremities (01/22/18) Colon polyps (Chronic ~2011) 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 Well- nourished, well-developed patient, in moderate distress. Clearly not feeling well, alert but confused, poor historian HEAD: Atraumatic. Normocephalic. EYES: Pupils equal round and reactive. Extraocular motions intact. No scleral icterus. No injection or drainage. ENT: Dry mucous membranes Nose without bleeding, purulent drainage. Throat wit hout erythema, tonsillar hypertrophy or exudate. Airway patent. NECK: Trachea midline. Non tender CARDIOVASCULAR: Tachycardic but regular rhythm without murmurs, gallops, or rubs. RESPIRATORY: Clear to auscultation. Breath sounds equal bilaterally. No wheezes, rales, or rhonchi. GASTROINTESTINAL: Abdomen soft, non-tender, nondistended. EXTREMITIES: No edema or joint tenderness. BACK: Nontender without deformity or crepitance. No flank tenderness. NEURO: AOx3, but confused SKIN: Right buttock examined in the presence of female nursing corn grower and patient . Minimal erythema on the right buttock including gluteal fold, no induration or drainage noted. viewed and states it looked worse yesterday Initial Vital Signs Initial Vital Signs: Vital Signs Temperature 103.3 F H 06/21/19 18:31 Pulse Rate 108 H 06/21/19 18:31 Respiratory Rate 20 06/21/19 18:31 Blood Pressure 125/57 L 06/21/19 18:31 Pulse Oximetry 92 06/21/19 18:31 Course Orders Ordered: ED Orders 06/21/19 18:34 EKG-12 Lead Stat RT Consult Eval and Treat Now 06/21/19 18:38 Complete Blood Count AUTO DIFF Stat Comprehensive Metabolic Panel Stat Lactate (Lactic Acid) Stat Lipase Stat Partial Thromboplastin Time Stat Procalcitonin Stat Prothrombin Time INR Stat 06/21/19 18:41 XR chest 2V Stat 06/21/19 19:25 Blood Culture Stat 06/21/19 20:30 Urine Culture Stat Urine Microscopic Stat 06/21/19 20:55 CT angio chest PE protocol Stat 06/21/19 22:11 Respiratory Panel (Film Array) Stat Acetaminophen (Tylenol) 650 mg PO Q6HR PRN PRN Reason: As Needed for Fever/Mild Pain Al Hydrox/Mg Hydrox/Simethicone (Maalox Plus) 30 ml PO Q6HR PRN PRN Reason: Dyspepsia Calcium Carbonate (Tums) 1,000 mg PO Q4HR PRN PRN Reason: Dyspepsia Duloxetine HCl (Cymbalta) 40 mg PO DAILY [facility] Enoxaparin Sodium (Lovenox) 100 mg SUBCUT DAILY [facility] Gabapentin (Neurontin) 600 mg PO BEDTIME KEVIN Sodium Chloride (Normal Saline 0.9%) 1,000 mls @ 100 mls/hr IV CONT [facility] Irbesartan (Avapro) 300 mg PO DAILY [facility] Letrozole (Femara) 2.5 mg PO QDAY [facility] Mirtazapine (Remeron) 45 mg PO QHS KEVIN Naloxone HCl (Narcan) 0.2 mg IV Q2MIN PRN PRN Reason: Opiate Reversal Non-Formulary Medication (Cetirizine [Zyrtec]) 10 mg PO DAILY KEVIN Non-Formulary Medication (Everolimus (Antineoplastic) [Afinitor]) 5 mg PO QDAY KEVIN Ondansetron HCl (Zofran) 4 mg IV Q8HR PRN PRN Reason: Nausea And Vomiting Ondansetron HCl (Zofran Odt) 4 mg PO Q8HR PRN PRN Reason: Nausea And Vomiting Oxycodone HCl (Percolone) 10 mg PO Q4H PRN PRN Reason: pain Oxycodone HCl (Oxycontin) 10 mg PO BID KEVIN Pantoprazole Sodium (Protonix) 20 mg PO 0700 KEVIN Simvastatin (Zocor) 40 mg PO BEDTIME KEVIN Discontinued Medications Sodium Chloride (Normal Saline 0.9%) 1,000 mls @ 1,000 mls/hr IV BOLUS ONE Stop: 06/21/19 19:33 Last Infusion: 06/21/19 20:02 Dose: 0 mls/hr [facility] Admin: 06/21/19 18:47 Dose: 1,000 mls/hr Documented by: VIANEY Levofloxacin (Levaquin) 750 mg in 150 mls @ 100 mls/hr IV NOW ONE Stop: 06/21/19 21:14 Last Infusion: 06/21/19 21:50 Dose: 0 mls/hr [facility] Infusion: 06/21/19 21:23 Dose: 100 mls/hr Documented by: [facility] Infusion: 06/21/19 21:09 Dose: 0 mls/hr [facility]: [facility] Admin: 06/21/19 19:51 Dose: 100 mls/hr [facility] Sodium Chloride (Normal Saline 0.9%) 1,000 mls @ 1,000 mls/hr IV BOLUS ONE Stop: 06/21/19 20:47 Last Infusion: 06/21/19 21:09 Dose: 0 mls/hr [facility]: [facility] Admin: 06/21/19 19:51 Dose: 1,000 mls/hr [facility]: [facility] Cefazolin Sodium/Dextrose (Ancef) 1 gm in 50 mls @ 200 mls/hr IV NOW ONE Stop: 06/21/19 21:07 Last Infusion: 06/21/19 22:18 Dose: 0 mls/hr Documented by: Admin: 06/21/19 21:52 Dose: 200 mls/hr Documented by: GERARDO Consultations Consultation #1: Dr. Jackson happy to accept on her service Vital Signs Vital signs: Vital Signs - 8 hr 06/21/19 18:31 06/21/19 19:15 06/21/19 19:30 Temperature 103.3 F H Pulse Rate 108 H 104 H 103 H Respiratory Rate 20 14 19 Blood Pressure 125/57 L Blood Pressure [Left Arm] 105/55 L Pulse Oximetry 92 100 95 06/21/19 20:00 06/21/19 21:22 Temperature Pulse Rate 106 H 102 H Respiratory Rate 25 H Blood Pressure Blood Pressure [Left Arm] 106/65 110/58 L Pulse Oximetry 98 99 MDM - Skin/Abscess/Foreign Bdy Lab Data Result diagrams: 06/21/19 18:38 06/21/19 18:38 Labs: Lab Results 06/21/19 06/21/19 06/21/19 Range/Units 18:38 18:38 18:38 WBC 9.5 (4.5-11.0) X10^3/uL RBC 4.53 (4.0-5.2) X10^6/uL Hgb 11.9 L (12.0-16.0) g/dL Hct 36.0 (36-46) % MCV 79.6 L (80-100) fL MCH 26.4 (26-34) PG MCHC 33.1 (30-36) % RDW 14.5 (11.6-14.8) % Plt Count 213 (150-400) X10^3/uL Neut % (Auto) 94.0 H (50-75) % Lymph % (Auto) 2.9 L (25-40) % Creek % (Auto) 2.6 L (3-14) % Eos % (Auto) 0.0 L (2-4) % Baso % (Auto) 0.5 (0-2) % Neut # (Auto) 9000 H (1503-1158) /uL Lymph # (Auto) 300 L (2805-6008) /uL Creek # (Auto) 200 (0-900) /uL Eos # (Auto) 0 (0-450) /uL Baso # (Auto) 0 (0-100) /uL PT 12.9 H (10.1-12.7) SECONDS INR 1.1 (0.9-1.3) APTT 37 H (26.4-36.2) SECONDS Sodium (137-145) mmol/L Potassium (3.4-5.1) mmol/L Chloride (98-107) mmol/L Carbon Dioxide (22-32) mmol/L BUN (7-17) mg/dL Creatinine (0.52-1.04) mg/dL Estimated GFR (>60) mL/min BUN/Creatinine Ratio (6-22) Glucose (80-110) mg/dL Lactate (0.7-2.1) mmol/L Calcium (8.4-10.2) mg/dL Total Bilirubin (0.2-1.3) mg/dL AST (14-36) IU/L ALT (9-52) IU/L Alkaline Phosphatase (38-126) U/L Total Protein (6.3-8.2) g/dL Albumin (3.5-5.0) g/dL Globulin (1.7-4.1) g/dL Albumin/Globulin Ratio (1.0-2.8) Lipase (23-300) U/L Procalcitonin 3.87 H (<0.5) ng/mL Urine RBC (0-5/HPF) Urine WBC (0-5/HPF) Amorphous Sediment Urine Bacteria (None) Hyaline Casts (None) Urine Mucus (Negative) Ur Culture Indicated? 06/21/19 06/21/19 06/21/19 Range/Units 18:38 18:38 20:30 WBC (4.5-11.0) X10^3/uL RBC (4.0-5.2) X10^6/uL Hgb (12.0-16.0) g/dL Hct (36-46) % MCV (80-100) fL MCH (26-34) PG MCHC (30-36) % RDW (11.6-14.8) % Plt Count (150-400) X10^3/uL Neut % (Auto) (50-75) % Lymph % (Auto) (25-40) % Creek % (Auto) (3-14) % Eos % (Auto) (2-4) % Baso % (Auto) (0-2) % Neut # (Auto) (1206-5294) /uL Lymph # (Auto) (2569-8898) /uL Creek # (Auto) (0-900) /uL Eos # (Auto) (0-450) /uL Baso # (Auto) (0-100) /uL PT (10.1-12.7) SECONDS INR (0.9-1.3) APTT (26.4-36.2) SECONDS Sodium 135 L (137-145) mmol/L Potassium 4.0 (3.4-5.1) mmol/L Chloride 96 L (98-107) mmol/L Carbon Dioxide 30 (22-32) mmol/L BUN 13 (7-17) mg/dL Creatinine 0.90 (0.52-1.04) mg/dL Estimated GFR > 60.0 (>60) mL/min BUN/Creatinine Ratio 14.4 (6-22) Glucose 122 H (80-110) mg/dL Lactate 1.4 (0.7-2.1) mmol/L Calcium 9.2 (8.4-10.2) mg/dL Total Bilirubin 0.4 (0.2-1.3) mg/dL AST 27 (14-36) IU/L ALT 9 (9-52) IU/L Alkaline Phosphatase 78 (38-126) U/L Total Protein 6.7 (6.3-8.2) g/dL Albumin 3.7 (3.5-5.0) g/dL Globulin 3.0 (1.7-4.1) g/dL Albumin/Globulin Ratio 1.2 (1.0-2.8) Lipase 34 (23-300) U/L Procalcitonin (<0.5) ng/mL Urine RBC 10-30/hpf H (0-5/HPF) Urine WBC None seen (0-5/HPF) Amorphous Sediment 4+ Urine Bacteria Occasional (0-1) (None) Hyaline Casts 0-1/lpf (None) Urine Mucus 2+ H (Negative) Ur Culture Indicated? Specimen cultured Urine Dip Bedside Urine Glucose Negative Bedside Urine Bilirubin - Negative Bedside Urine Ketone +++ 80 Urine Specific [place] 1.025 Bedside Urine Occult Blood +++ Bedside Urine pH 5.5 Bedside Urine Protein ++ 100 Bedside Urine Nitrite - Negative Bedside Urine Leukocytes +/- 15 Esterase MDM Narrative Medical decision making narrative: 78-year-old female febrile, tachycardic and hypoxic (down to 88% on room air) with known history of endometrial cancer, on daily chemotherapy presents with a painful right buttock for the past few days. She does have a history of cellulitis and though the exam isn't overwhelming she clearly has an infectious process. Procalcitonin is elevated, CT scan would suggest no pulmonary embolism or pneumonia. Patient given fluids, IV antibiotics and will require hospitalization for stabilization and further denise acterization of her illness Discharge Plan Departure Patient Disposition: Admitted As Inpatient Clinical Impression: Sepsis Qualifiers: Sepsis type: sepsis due to unspecified organism Sepsis acute organ dysfunction status: without acute organ dysfunction Qualified Code(s): A41.9 - Sepsis, unspecified organism Admit Date/Time: 06/21/19 21:58 Admit Provider: Evelyne Jackson
--- NOTE | 2019-06-21 18:41 | DI.RAD.S_ITS ---
PROCEDURE: XR CHEST 2V INDICATIONS: fever, tachycardia, sepsis, on chemo TECHNIQUE: 2 views of the chest were acquired. COMPARISON: [facility], , CHEST 1 VIEW, 04/02/2017, 16:17. FINDINGS: Surgical changes and devices: There is a Port-A-Cath on the right with the tip in the distal SVC. Lungs and pleura: Lungs are clear. Biapical scarring. No pleural effusions or pneumothorax. Mediastinum: Mediastinal contours are normal. Heart size is normal. Bones and chest wall: No suspicious bony abnormalities. Soft tissues appear unremarkable. IMPRESSION: No active cardiopulmonary disease. Dictated by: Hipolito Garces M.D. on 06/21/2019 at 19:22 Approved by: Hipolito Garces M.D. on 06/21/2019 at 19:26
[2019-06-21] MEDS: SODIUM CHLORIDE 0.9% 1,000 ML 1000 ML IV ×2 (18:47→19:51)
--- NOTE | 2019-06-21 18:49 | PC.NURSE ---
pt arrived to ED POV with , reports feeling crummy CA pt and undergoing PO chemo, temp TMax 103. reports taking tylenol at home. reports rash on R buttock. no rash noted to assessment. pt appears confused which is not baseline, poor historian. PCP is Manuel. IV placed and septic lab work completed, placed on cardiac monitoring and cont POX. IVF infusing per EMR. Dr Sanford in to see.
[2019-06-21 18:50] LABS: Add Manual Diff / Slide Review NO; Basophils Absolute Auto 0 /uL (0-100); Basophils Percent Auto 0.5 % (0-2); Eosinophils Absolute Auto 0 /uL (0-450); Hemoglobin 11.9 g/dL (12.0-16.0); Lymphocytes Absolute Auto 300 /uL (1100-4500); Lymphocytes Percent Auto 2.9 % (25-40); Mean Corpuscular HGB Conc 33.1 % (30-36); Mean Corpuscular Hemoglobin 26.4 PG (26-34); Mean Corpuscular Volume 79.6 fL (80-100); Monocytes Absolute Auto 200 /uL (0-900); Monocytes Percent Auto 2.6 % (3-14); Neutrophils Absolute Auto 9000 /uL (1500-7000); Platelet Count 213 X10^3/uL (150-400); Red Blood Cell Count 4.53 X10^6/uL (4.0-5.2); Red Cell Distribution Width 14.5 % (11.6-14.8); White Blood Cell Count 9.5 X10^3/uL (4.5-11.0)
[2019-06-21 18:57] LABS: INR 1.1 (0.9-1.3); Prothrombin Time 12.9 SECONDS (10.1-12.7)
[2019-06-21 18:58] LABS: HEMOLYSIS < 15 (0-50)
[2019-06-21 18:59] LABS: PTT Partial Thromboplastin Tim 37 SECONDS (26.4-36.2)
[2019-06-21 19:01] LABS: Alanine Aminotransferase 9 IU/L (9-52); Albumin 3.7 g/dL (3.5-5.0); Albumin Globulin Ratio 1.2 (1.0-2.8); Alkaline Phosphatase 78 U/L (38-126); Aspartate Aminotransferase 27 IU/L (14-36); BUN Creatinine Ratio 14.4 (6-22); Bilirubin Total 0.4 mg/dL (0.2-1.3); Blood Urea Nitrogen 13 mg/dL (7-17); Calcium 9.2 mg/dL (8.4-10.2); Carbon Dioxide 30 mmol/L (22-32); Chloride 96 mmol/L (98-107); Estimated Glomerular Filt Rate > 60.0 mL/min (>60); Glucose 122 mg/dL (80-110); Lactate (Lactic Acid) 1.4 mmol/L (0.7-2.1); Lipase 34 U/L (23-300); Sodium 135 mmol/L (137-145); Total Protein 6.7 g/dL (6.3-8.2)
[2019-06-21 19:22] LABS: Procalcitonin 3.87 ng/mL (<0.5)
[2019-06-21] MEDS: levoFLOXacin 750 MG/150 ML PIGGYBACK 100 MG IV (19:51)
[2019-06-21 20:41] LABS: WBC Urine None Seen (0-5/HPF)
[2019-06-21 20:47] LABS: Amorphous Sediment Urine 4+; Bacteria Urine Occasional (0-1); Culture Indicated Urine Specimen Cultured; Hyaline Casts Urine 0-1/LPF; Mucus Urine 2+ (Negative); RBC Urine 10-30/HPF (0-5/HPF)
--- NOTE | 2019-06-21 20:51 | PC.NURSE ---
report called to Neftali
--- NOTE | 2019-06-21 20:55 | DI.CT.S_ITS ---
PROCEDURE: CT ANGIO CHEST PE PROTOCOL INDICATIONS: Shortness of breath, hypoxia, tachycardia, history of cancer TECHNIQUE: After the administration of intravenous contrast, 2 mm thick sections acquired from the pulmonary apices to the posterior costophrenic angles. 3-dimensional maximum intensity projection (MIP) coronal and sagittal reformats were then acquired through the thorax. For radiation dose reduction, the following was used: automated exposure control, adjustment of mA and/or kV according to patient size. COMPARISON: Outside Facility, RG, CT CHEST/ABD/PEL W/CONTRAST, 12/25/2016, 7:41. [facility], CT, CHEST/ABD/PEL WITH CONTRAST, 03/24/2017, 8:59. [facility], CT, CT CHEST ABD PEL W CON, 09/25/2018, 9:31. [facility], CR, XR CHEST 2V, 06/21/2019, 18:49. FINDINGS: Image quality: Excellent. Pulmonary arteries: Pulmonary arteries are normal in size, and demonstrate no intraluminal filling defects to suggest central pulmonary embolism. Lungs and pleura: Bilateral septal thickening and small pleural effusions, suggesting mild pulmonary edema. There is 4 mm in the right upper lobe (series 5 image 133). There are a couple of 5 mm nodules, one in the right middle lobe (series 5 image 156) and one in the right lower lobe (series 5 image 165). The right lower lobe nodule appears unchanged. The right upper lobe and right middle lobe nodules are not definitively seen on the last exam. Small nodules in the left lower lobe described on the last CT are not visualized on the current exam. No pneumothorax. Central and peripheral airways are patent. Mediastinum: Heart size is normal, without pericardial effusion. No mediastinal or hilar adenopathy. Thoracic aorta is normal in caliber and enhancement. Esophagus is normal in caliber, without hiatal hernia. Bones and chest wall: No suspicious bony lesions. Ribs and thoracic spine appear intact throughout. The left thyroid lobe is enlarged and heterogeneous. No axillary or supraclavicular adenopathy. There is a Port-A-Cath in the right anterior chest with the tip in SVC. Abdomen: Visualized upper abdominal solid organs appear normal in the early arterial phase of enhancement. IMPRESSION: 1. No evidence for central pulmonary embolism. 2. Bilateral septal thickening and small pleural effusions suggesting pulmonary edema. 3. Small right lung nodules. One nodule appears unchanged. Two nodules were not definitively seen on the last exam. Recommend short-term CT followup in 3 months. 4. Enlarged heterogeneous left thyroid lobe. Thyroid ultrasound is suggested for followup. The result was discussed with Dr. Sanford. Dictated by: Hipolito Garces M.D. on 06/21/2019 at 21:26 Approved by: Hipolito Garces M.D. on 06/21/2019 at 21:54
--- NOTE | 2019-06-21 21:10 | PC.NURSE ---
pt to CT with tech, antibx paused
[2019-06-21] MEDS: CEFAZOLIN 1 GM/50 ML FROZ.PIGGY IV (21:52)
--- NOTE | 2019-06-21 22:23 | PC.NURSE ---
viral panel sent to lab
[2019-06-21 23:40] LABS: Adenovirus Not Detected (Not Detect); Bordetella pertussis Not Detected (Not Detect); Chlamydophila pneumoniae Not Detected (Not Detect); Coronavirus 229E Not Detected (Not Detect); Coronavirus HKU1 Not Detected (Not Detect); Coronavirus NL 63 Not Detected (Not Detect); Coronavirus OC43 Not Detected (Not Detect); Human Metapneumovirus Not Detected (Not Detect); Human Rhinovirus/Enterovirus Not Detected (Not Detect); Influenza A Not Detected (Not Detect); Influenza B Not Detected (Not Detect); Mycoplasma pneumoniae Not Detected (Not Detect); Parainfluenza Virus 1 Not Detected (Not Detect); Parainfluenza Virus 2 Not Detected (Not Detect); Parainfluenza Virus 3 Not Detected (Not Detect); Parainfluenza Virus 4 Not Detected (Not Detect); Respiratory Syncytial Virus Not Detected (Not Detect)
[2019-06-21] MEDS: SODIUM CHLORIDE 0.9% 1,000 ML 100 ML IV (23:50)
[2019-06-22] VITALS (8 sets, daily range): BP systolic 89–119; BP diastolic 52–61; PULSE 78–95; RESP 16–18; TEMP 36.6–37.6; O2SAT 92–98
[2019-06-22 05:58] LABS: Add Manual Diff / Slide Review NO; Basophils Absolute Auto 0 /uL (0-100); Basophils Percent Auto 0.3 % (0-2); Eosinophils Absolute Auto 0 /uL (0-450); Hematocrit 29.6 % (36-46); Hemoglobin 9.7 g/dL (12.0-16.0); Lymphocytes Absolute Auto 700 /uL (1100-4500); Lymphocytes Percent Auto 9.9 % (25-40); Mean Corpuscular HGB Conc 32.9 % (30-36); Mean Corpuscular Hemoglobin 26.1 PG (26-34); Mean Corpuscular Volume 79.5 fL (80-100); Monocytes Absolute Auto 500 /uL (0-900); Monocytes Percent Auto 6.9 % (3-14); Neutrophils Absolute Auto 5500 /uL (1500-7000); Neutrophils Percent Auto 82.9 % (50-75); Platelet Count 174 X10^3/uL (150-400); Red Blood Cell Count 3.73 X10^6/uL (4.0-5.2); Red Cell Distribution Width 14.6 % (11.6-14.8); White Blood Cell Count 6.6 X10^3/uL (4.5-11.0)
[2019-06-22 06:04] LABS: BUN Creatinine Ratio 13.3 (6-22); Blood Urea Nitrogen 12 mg/dL (7-17); Calcium 8.2 mg/dL (8.4-10.2); Carbon Dioxide 30 mmol/L (22-32); Chloride 100 mmol/L (98-107); Estimated Glomerular Filt Rate > 60.0 mL/min (>60); Glucose 124 mg/dL (80-110); HEMOLYSIS < 15 (0-50); Potassium 4.1 mmol/L (3.4-5.1); Sodium 133 mmol/L (137-145)
[2019-06-22] MEDS: PANTOPRAZOLE 20 MG TABLET PO (06:30)
--- NOTE | 2019-06-22 06:56 | PC.NURSE ---
Pt continues to have stable Vital signs, tachycardic in the 90's, T98.7. Pt denies pain, nausea. Pt has redness on admit on rgt buttock area. Dr. Jackson called to check on pt, she ordered 1g Cef for 0700.
[2019-06-22] MEDS: CEFAZOLIN 1 GM/50 ML FROZ.PIGGY IV ×3 (07:47→22:04)
--- NOTE | 2019-06-22 09:06 | PC.NURSE ---
Day shift: Pt has taken her morning medications. Pt stated she takes that at the exact times each day. This senior grant writer explained hospital policy and Pt is receptive to letting RN's give meds per MAR. This did not happen this AM. Dr Jackson was told of this.
--- NOTE | 2019-06-22 09:40 | P.HP_ITS ---
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 She was found to be tachycardic, tachypnea with acute respiratory failure requiring supplemental oxygen. She had an Elevated mildly WBC and procalcitonin to 3.87 normal <0.5. She has history of lower extremity cellulits with rapid progression and similar presentation in the past and has had some redness and tenderness to her right upper thigh glut junction area. She also has been coughing which is wet but not particularly productive. This morning she tells me that she is feeling much better. Still weak and cold but not confused. She is not requiring oxygen. Cough is intermittent. The area over her right glut is no longer tender. She is tired and sleep was interrupted last night. tells me that she doesn't hydrate sufficiently at home but patient protests. 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) Measles (Resolved ~1944) Mumps (Resolved ~194) Vision abnormalities (Chronic) Surgical History Status post breast biopsy (~1967) Status post hysterectomy (~2006) Status post tubal ligation (~1988) Social History household members: spouse Smoking Status: Never smoker alcohol intake: never Family & Social History Social History: household members spouse Prior Living Arrangements House Safety & Behavioral: Feels Safe in Current Yes Environment Been Physically Hurt or No Threatened By a Person Suicidal Ideation Description None Suicide Plan Description No Plan Tobacco & Substance use: Smoking Status Never smoker alcohol intake never Substance Use Type does not use Meds Home Medications and Allergies Home Medications Medication Instructions Recorded Confirmed Type everolimus (antineoplastic) 5 mg PO QDAY #30 tab 06/18/16 05/21/19 History [Afinitor] letrozole [Femara] 2.5 mg PO QDAY #0 tab 06/18/16 05/21/19 History [culterelle] #0 02/05/17 05/21/19 History sennosides [senna] 8.6 mg PO QDAY PRN #0 02/05/17 05/21/19 History calcium carbonate-vitamin D3 600 cap PO cap 04/06/18 05/21/19 History mg (1,500 mg)-400 unit capsule cetirizine 10 mg capsule PO cap 04/06/18 05/21/19 History enoxaparin 100 mg/mL subcutaneous 100 mg SUBCUT DAILY #90 each 11/02/18 05/21/19 Rx syringe simvastatin 40 mg tablet 40 mg PO QAM #90 tab 02/10/19 05/21/19 Rx diclofenac sodium 3 % topical gel 1 applictn TOP BID #100 gram 02/11/19 05/21/19 Rx diclofenac sodium 1 % topical gel 2 gram TOP BID #100 gram 03/17/19 05/21/19 Rx mirtazapine 30 mg tablet 45 mg PO QHS #90 tab 03/18/19 05/21/19 Rx gabapentin 600 mg tablet 600 mg PO DAILY #450 tab 04/15/19 05/21/19 Rx irbesartan 300 mg tablet 300 mg PO DAILY #90 tab 04/15/19 05/21/19 Rx omeprazole 20 mg capsule,delayed 20 mg PO QDAY PRN #90 cap 04/15/19 05/21/19 Rx release duloxetine 20 mg capsule,delayed 40 mg PO DAILY #180 cap 04/27/19 05/21/19 Rx release cholecalciferol (vitamin D3) 50,000 unit PO QWEEK #10 cap 06/10/19 Rx 50,000 unit capsule mirtazapine 15 mg tablet 15 mg PO DAILY #90 tab 06/18/19 Rx oxycodone 10 mg tablet,crush 10 mg PO BID #60 tab 06/18/19 Rx resistant,extended release 12 hr oxycodone 5 mg tablet 5 mg PO Q4H PRN #180 tab 06/18/19 Rx Allergies Allergy/AdvReac Type Severity Reaction Status Date / Time Penicillins [PENICILLINS] Allergy Unknown Verified 06/22/19 09:55 Review of Systems Constitutional Constitutional: Reports as per HPI Cardiovascular Cardiovascular: Reports as per HPI Respiratory Respiratory: Reports as per HPI Hematologic/Lymphatic Hematologic/Lymphatic: Reports as per HPI Exam Vital Signs (past 8 hours): - 06/22/19 05:00 06/22/19 07:30 06/22/19 08:23 Temperature 98.7 F 98.3 F Pulse Rate 90 95 H Respiratory Rate 18 18 Blood Pressure 104/56 L 119/61 Pulse Oximetry 97 93 96 Oxygen Delivery Method Room Air Oxygen Flow Rate 0 Narrative Exam Narrative: General: Well-developed, well-nourished, female, tired appearing Heart: Regular rate and rhythm, no murmurs appreciated Lungs: Clear to auscultation bilaterally, no wheezes, rales or rhonchi Abd: BS+, soft, nontender, nondistended, no rebound, no guarding Extremities: Warm and well perfused, compression stocking to thighs bilaterally Skin: right glut/upper thigh junction has a pink area 6 cm x 4 cm, nontender at this time, patient reports that this area was tender on presentation Objective Imaging CT scan - chest: Radiologist's impression: IMPRESSION: 1. No evidence for central pulmonary embolism. 2. Bilateral septal thickening and small pleural effusions suggesting pulmonary edema. 3. Small right lung nodules. One nodule appears unchanged. Two nodules were not definitively seen on the last exam. Recommend short-term CT followup in 3 months. 4. Enlarged heterogeneous left thyroid lobe. Thyroid ultrasound is suggested for followup. The result was discussed with Dr. Sanford. Dictated by: Hipolito Garces M.D. on 06/21/2019 at 21:26 Approved by: Hipolito Garces M.D. on 06/21/2019 at 21:54 Labs Result Diagrams: 06/22/19 05:35 06/22/19 05:35 Labs: Laboratory Results - last 24 hr 06/21/19 06/21/19 06/21/19 18:38 18:38 18:38 WBC 9.5 RBC 4.53 Hgb 11.9 L Hct 36.0 MCV 79.6 L MCH 26.4 MCHC 33.1 RDW 14.5 Plt Count 213 Neut % (Auto) 94.0 H Lymph % (Auto) 2.9 L Mcculloch % (Auto) 2.6 L Eos % (Auto) 0.0 L Baso % (Auto) 0.5 Neut # (Auto) 9000 H Lymph # (Auto) 300 L Mcculloch # (Auto) 200 Eos # (Auto) 0 Baso # (Auto) 0 PT 12.9 H INR 1.1 APTT 37 H Sodium Potassium Chloride Carbon Dioxide BUN Creatinine Estimated GFR BUN/Creatinine Ratio Glucose Lactate Calcium Total Bilirubin AST ALT Alkaline Phosphatase Total Protein Albumin Globulin Albumin/Globulin Ratio Lipase Procalcitonin 3.87 H Urine RBC Urine WBC Amorphous Sediment Urine Bacteria Hyaline Casts Urine Mucus Ur Culture Indicated? Chlamy pneumoniae PCR Adenovirus (PCR) B.parapertussis DNA PCR Coronavirus OC43 (PCR) Coronavirus HKU1 (PCR) Coronavirus 229E (PCR) Coronavirus NL63 (PCR) Human Metapneumovir PCR Influenza Type A (PCR) Influenza Type B (PCR) M. pneumoniae (PCR) Parainfluenza 1 (PCR) Parainfluenza 2 (PCR) Parainfluenza 3 (PCR) Parainfluenza 4 (PCR) RSV (PCR) Entero/Rhino (PCR) 06/21/19 06/21/19 06/21/19 18:38 18:38 20:30 WBC RBC Hgb Hct MCV MCH MCHC RDW Plt Count Neut % (Auto) Lymph % (Auto) Mcculloch % (Auto) Eos % (Auto) Baso % (Auto) Neut # (Auto) Lymph # (Auto) Mcculloch # (Auto) Eos # (Auto) Baso # (Auto) PT INR APTT Sodium 135 L Potassium 4.0 Chloride 96 L Carbon Dioxide 30 BUN 13 Creatinine 0.90 Estimated GFR > 60.0 BUN/Creatinine Ratio 14.4 Glucose 122 H Lactate 1.4 Calcium 9.2 Total Bilirubin 0.4 AST 27 ALT 9 Alkaline Phosphatase 78 Total Protein 6.7 Albumin 3.7 Globulin 3.0 Albumin/Globulin Ratio 1.2 Lipase 34 Procalcitonin Urine RBC 10-30/hpf H Urine WBC None seen Amorphous Sediment 4+ Urine Bacteria Occasional (0-1) Hyaline Casts 0-1/lpf Urine Mucus 2+ H Ur Culture Indicated? Specimen cultured Chlamy pneumoniae PCR Adenovirus (PCR) B.parapertussis DNA PCR Coronavirus OC43 (PCR) Coronavirus HKU1 (PCR) Coronavirus 229E (PCR) Coronavirus NL63 (PCR) Human Metapneumovir PCR Influenza Type A (PCR) Influenza Type B (PCR) M. pneumoniae (PCR) Parainfluenza 1 (PCR) Parainfluenza 2 (PCR) Parainfluenza 3 (PCR) Parainfluenza 4 (PCR) RSV (PCR) Entero/Rhino (PCR) 06/21/19 06/22/19 06/22/19 22:11 05:35 05:35 WBC 6.6 RBC 3.73 L Hgb 9.7 L Hct 29.6 L MCV 79.5 L MCH 26.1 MCHC 32.9 RDW 14.6 Plt Count 174 Neut % (Auto) 82.9 H Lymph % (Auto) 9.9 L Mcculloch % (Auto) 6.9 Eos % (Auto) 0.0 L Baso % (Auto) 0.3 Neut # (Auto) 5500 Lymph # (Auto) 700 L Mcculloch # (Auto) 500 Eos # (Auto) 0 Baso # (Auto) 0 PT INR APTT Sodium 133 L Potassium 4.1 Chloride 100 Carbon Dioxide 30 BUN 12 Creatinine 0.90 Estimated GFR > 60.0 BUN/Creatinine Ratio 13.3 Glucose 124 H Lactate Calcium 8.2 L Total Bilirubin AST ALT Alkaline Phosphatase Total Protein Albumin Globulin Albumin/Globulin Ratio Lipase Procalcitonin Urine RBC Urine WBC Amorphous Sediment Urine Bacteria Hyaline Casts Urine Mucus Ur Culture Indicated? Chlamy pneumoniae PCR Not detected Adenovirus (PCR) Not detected B.parapertussis DNA PCR Not detected Coronavirus OC43 (PCR) Not detected Coronavirus HKU1 (PCR) Not detected Coronavirus 229E (PCR) Not detected Coronavirus NL63 (PCR) Not detected Human Metapneumovir PCR Not detected Influenza Type A (PCR) Not detected Influenza Type B (PCR) Not detected M. pneumoniae (PCR) Not detected Parainfluenza 1 (PCR) Not detected Parainfluenza 2 (PCR) Not detected Parainfluenza 3 (PCR) Not detected Parainfluenza 4 (PCR) Not detected RSV (PCR) Not detected Entero/Rhino (PCR) Not detected Assessment & Plan Assessment & Plan narrative: 1. Infection from presumed cellulitis and pneumonia. Patient is immunosuppressed on oral chemotherapeutic agents. Signif icantly elevated procalcitonin and left shift with mildly elevated WBC. Fever, rigors, confusion. Has responded well to parental antibiotics and fluid resuscitation. Will continue with levofloxacin and cefazolin today. Follow cultures. 2. Pulmonary edema. Lung exam unremarkable. No oxygen requirement this morning. Heart failure - will check BNP. Early pneumonia - continue with levofloxacin. everolimus toxicity - pneumonitis? Consider echocardiogram. 3. Lymphedema. Will ask PT to help with removing her compression stockings and work on lymphatic massage. 4. Metastatic uterine cancer. Will continue her antineoplastic medications for now. 5. Pain management. Continue home regimen of 10 mg long acting oxycodone twice daily and the 5-10 mg q 4 hours prn. 6. Hypertension. Has been hypotensive. Home meds are ordered but may need to hold for low SBP. 7. Anemia, chronic. Was at baseline on admit like decreased this morning from dilution. Will monitor. Did have RBC's in her urine. DVT prophylaxis: is on treatment dosing of lovenox at baseline, continue CODE STATUS: currently full code, need to discuss Patient is at high risk for deterioration given her immunocompromised status and requires 48 hours of parental antibiotics before considering discharge. She will likely be able to return home afterwards. Scores GCS [place] coma scale eye opening: Spontaneous Bernard coma scale verbal response: Orientated Bernard coma scale motor response: Obey commands Bernard coma scale total score: 15 Citation: Score was 14 last night
[2019-06-22 11:39] LABS: B Type Natriuretic Peptide 1350 (<100)
--- NOTE | 2019-06-22 11:58 | PC.NURSE ---
Day shift: Called Dr rFeedman and talked to her RN. Reported BNP of 1350.
--- NOTE | 2019-06-22 14:39 | PT-IP ANOTE ---
PT consult received 06/22/19 for lymphatic massage and mobility. Lymphatic massage is contraindicated in patients with active infection. Discussed this with patient who acknowledged she has been doing manual drainage on her own for years. Pt was observed mobilizing independently in the room. Pt reported she had no concerns with mobility. PT discharging order after leaving a message with Dr. Jackson.
--- NOTE | 2019-06-22 14:43 | OT.IP.TRT ---
Occupational Therapy Treatment Note M3 OT- IP Subjective and Pain Start: 06/22/19 14:36 Freq: Status: Active Protocol: Document 06/22/19 14:37 [facility] (Rec: 06/22/19 14:43 [facility] [id number]) OT- Subjective Occupational Therapy Visit Type Type Patient Refusal Notes Went to see pt for OT eval and pt states has no OT needs at this time and refusing OT eval orders. Pt states main trouble is having diffculty to ari compression stockings. Pt has good understanding for how to ari stockings. Pt aware of compression stockinig aids but has difficulty especially when she has arthritis flare ups in her hands. Called physician's office for verbal orders to discharge OT eval orders.
--- NOTE | 2019-06-22 14:54 | CM.DANOTE ---
Discharge Planning/Care Management DCP: assessment: case received, EMR reviewed, spoke with therapy team and met then with pt. Introduced self and role. Pt is a 78 year old female who admitted to care of PCP: Dr. Jackson last night for s/s of infection. Payer: Medicare and [employer]. Admission status: INPT Pt follows with oncology at [facility]: carries dx of metastatic uterine cancer. Pt says she has learned the hard way that when an infection starts she needs to go directly to the ER as the infection can readily spread to her bloodstream. She intends to go home at d/c and with her supportive spouse. She is hopeful this will be tomorrow and notes she feels better already today. DCP team will be following. OT/PT did see pt for a short talk but stated pt independent and that massage was contraindicated for therapists during an infection process. P: home when stable for same. Advanced directive, confirm from FAMILY Start: 06/21/19 23:42 Freq: Q24H Status: Active Protocol: Document 06/22/19 08:23 YAD (Rec: 06/22/19 08:33 YAD [id number]) Advance Directive, confirm on record Time 08:32 Person contacted Patient Copy received No CM Discharge Assessment Start: 06/22/19 14:52 Freq: Status: Active Protocol: Document 06/22/19 14:52 ITV (Rec: 06/22/19 14:53 ITV [id number]) Discharge Planning Assessment Advance Directives? Yes Advance Directives on File No History Provided By Patient,Medical Record Prior Living Arrangements House Household Members spouse Independent with ADL's Yes Is patient alert and oriented? Yes Whiteboard Updated in Patient Room with Yes name and ext. 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
[2019-06-22] MEDS: ACETAMINOPHEN 325 MG TABLET 650 MG PO (22:05)
--- NOTE | 2019-06-22 23:02 | PC.NURSE ---
pt has been resting most shift and indep to br. stated she took her own meds.. we talked about letting the nurse know before taking meds and that we have them here locked up. she agreed to send meds home in am with . aox3 -intermitted iv anbx
[2019-06-23 01:29] VITALS: BP 94/54; PULSE 85; RESP 16; TEMP 36.8; O2SAT 93
--- NOTE | 2019-06-23 04:54 | PC.NURSE ---
Pt BP hypotensive 94/54, tachy 84. Pt lung sounds diminished in the bases bilaterally. Pt denies pain or nausea. Pt has slight redness on Right buttock.
[2019-06-23 06:04] VITALS: BP 100/58; PULSE 76; RESP 16; TEMP 36.7; O2SAT 93
[2019-06-23 06:06] LABS: Add Manual Diff / Slide Review NO; Basophils Absolute Auto 0 /uL (0-100); Basophils Percent Auto 0.8 % (0-2); Eosinophils Absolute Auto 100 /uL (0-450); Eosinophils Percent Auto 2.4 % (2-4); Hematocrit 29.2 % (36-46); Hemoglobin 9.6 g/dL (12.0-16.0); Lymphocytes Absolute Auto 800 /uL (1100-4500); Lymphocytes Percent Auto 16.2 % (25-40); Mean Corpuscular HGB Conc 32.9 % (30-36); Mean Corpuscular Hemoglobin 26.2 PG (26-34); Mean Corpuscular Volume 79.6 fL (80-100); Monocytes Absolute Auto 500 /uL (0-900); Monocytes Percent Auto 9.5 % (3-14); Neutrophils Absolute Auto 3400 /uL (1500-7000); Neutrophils Percent Auto 71.1 % (50-75); Platelet Count 179 X10^3/uL (150-400); Red Blood Cell Count 3.67 X10^6/uL (4.0-5.2); Red Cell Distribution Width 14.7 % (11.6-14.8); White Blood Cell Count 4.8 X10^3/uL (4.5-11.0)
[2019-06-23 06:13] LABS: BUN Creatinine Ratio 11.3 (6-22); Blood Urea Nitrogen 9 mg/dL (7-17); Calcium 8.1 mg/dL (8.4-10.2); Carbon Dioxide 31 mmol/L (22-32); Chloride 102 mmol/L (98-107); Estimated Glomerular Filt Rate > 60.0 mL/min (>60); Glucose 103 mg/dL (80-110); HEMOLYSIS < 15 (0-50); Potassium 3.8 mmol/L (3.4-5.1); Sodium 135 mmol/L (137-145)
[2019-06-23] MEDS: CEFAZOLIN 1 GM/50 ML FROZ.PIGGY IV ×2 (06:46→15:05)
[2019-06-23] MEDS: PANTOPRAZOLE 20 MG TABLET PO (06:55)
[2019-06-23 07:40] VITALS: O2SAT 97
[2019-06-23 08:00] VITALS: BP 112/70; PULSE 79; RESP 16; TEMP 36.7; O2SAT 93
[2019-06-23] MEDS: LETROZOLE 2.5 MG TABLET PO (08:28)
[2019-06-23] MEDS: EVEROLIMUS 5 MG 5 EACH PO (08:28)
[2019-06-23] MEDS: OXYCODONE ER 10 MG TAB PO (08:36)
[2019-06-23] MEDS: ENOXAPARIN 100 MG/ML SYRINGE SUBCUT (08:38)
--- NOTE | 2019-06-23 08:45 | DI.RAD.S_ITS ---
PROCEDURE: XR CHEST 2V INDICATIONS: crackles on exam, fluid overload TECHNIQUE: 2 views of the chest were acquired. COMPARISON: [facility], CR, XR CHEST 2V, 06/21/2019, 18:49. FINDINGS: Surgical changes and devices: Right chest wall Port-A-Cath is stable. Lungs and pleura: Cephalization of pulmonary vasculature and prominence of the interstitium compatible with fluid overload. Trace bilateral pleural effusions. No pneumothorax. Mediastinum: Mediastinal contours are normal. Heart size is normal. Bones and chest wall: No suspicious bony abnormalities. Soft tissues appear unremarkable. IMPRESSION: Interstitial prominence, cephalization of pulmonary vasculature and trace bilateral pleural effusions compatible with fluid overload. Dictated by: Gwen Soni MD, PhD on 06/23/2019 at 11:05 Approved by: Gwen Soni MD, PhD on 06/23/2019 at 11:06
--- NOTE | 2019-06-23 08:46 | DI.ECHO.S_ITS ---
[facility]---------+ [facility] +---------+ : : [address] : : : : [id number] : : : : Phone: [phone] Echocardiogram Report + + :Name: PIPER ANGELA Study Date: 06/23/2019 Height: 63 in : :[facility] Weight: 156 lb : : Gender: Female BSA: 1.7 m2 : :: 1940 Age: 78 yrs BP: 112/70 mmHg: :Reason For Study: PULMONARY EDEMA, HF : : Performed By: Srinath Perrin : :Referring: RYLEY SHEIKH : + + Interpretation Summary Normal sinus rhythm. Normal LV size and wall thickness. There is normal basal motion; mid, distal and apical segments are severely hypokinetic. EF is 40-45%. Mild biatrial enlargement. No significant valvular abnormalities. No prior study available for comparison. Procedure: A two-dimensional transthoracic echocardiogram with color flow and Doppler was performed. The study quality was technically good. There is no prior echocardiogram noted for this patient. The patient was in normal sinus rhythm during the exam. Left Ventricle: The left ventricle is normal in size. Left ventricular wall thickness is borderline increased. The ejection fraction is estimated to be 45-50%. The distal third of the left ventricle is severely hypokinetic. Right Ventricle: The right ventricle is normal size. Right ventricular systolic function is mild to moderately reduced. The distal third of the right ventricle is severely hypokietic. Atria: Both atria are mildly dilated. The interatrial septum is intact with no evidence for an atrial septal defect. Mitral Valve: The mitral valve is normal in structure and function. There is trace mitral regurgitation. Aortic Valve: The aortic valve is trileaflet. The aortic valve opens well. There is trace aortic regurgitation. Tricuspid Valve: The tricuspid valve is normal in structure and function. There is trace tricuspid regurgitation. The right ventricular systolic pressure is estimated to be at least 32 mmHg based on an estimated right atrial pressure of 3 mm Hg. Pulmonic Valve: The pulmonic valve is normal in structure and function. There is trace pulmonic regurgitation. Great Vessels: The aortic root is normal size. The ascending aorta is at the upper limits of normal in size. The pulmonary artery is normal size. The IVC is of normal diameter and collapses greater than 50% with a sniff. This suggests a low right atrial pressure of 3 mm Hg. Pericardium/ Pleura There is a trivial pericardial effusion noted. There are no echocardiographic indications of cardiac tamponade. There is no pleural effusion. MMode/2D Measurements & Calculations LVIDd: 5.3 cm LVOT diam: 2.2 cm LVIDs: 3.5 cm Ao root diam: 3.1 cm FS: 34.5 % Aortic Jxn: 2.6 cm EPSS: 0.59 cm asc Aorta Diam: 3.5 cm IVSd: 0.99 cm Ao Arch Diam (Prox Trans): 2.8 cm LVPWd: 1.1 cm LV lopez. diameter/BSA (cm/m^2): 3.0 LV sys. diameter/BSA (cm/m^2): 2.0 LA dimension: 3.9 cm RA long axis: 5.0 cm LA A2 area: 21.9 cm2 RA area: 19.2 cm2 LA A4 area: 21.1 cm2 RA vol: 63.1 ml LA length (vol): 5.7 cm RA : 36.2 ml/m2 LA vol: 68.8 ml IVC diam: 1.9 cm LA vol index: 39.5 ml/m2 Doppler Measurements & Calculations Ao V2 max: 136.9 cm/sec LVOT Max Jesus: 117.3 cm/sec Ao V2 mean: 97.5 cm/sec LV V1 max P.5 mmHg Ao max P.5 mmHg LV V1 VTI: 18.2 cm Ao mean P.2 mmHg HUMAIRA(I,D): 2.7 cm2 Ao V2 VTI: 24.9 cm HUMAIRA(V,D): 3.2 cm2 sev ratio: 0.73 HUMAIRA indexed to BSA (cm^2/m^2): 1.6 MV E max jesus: 52.0 cm/sec TR max jesus: 268.4 cm/sec MV A max jesus: 69.3 cm/sec TR max P.8 mmHg MV E/A: 0.75 PA V2 max: 72.4 cm/sec Med Peak E' Jesus: 3.2 cm/sec PA V2 mean: 50.3 cm/sec E/E' med: 16.5 PA mean P.1 mmHg Lat Peak E' Jesus: 4.2 cm/sec PA pr(Accel): 41.6 mmHg E/E' lat: 12.3 PA Accel Time: 0.09 sec E/e' average: 14.4 MV dec time: 0.09 sec SV(LVOT): 68.0 ml Electronically signed by: Martha Best M.D. on Reading Physician:06/23/2019 02:54 PM
[2019-06-23] MEDS: FUROSEMIDE 20 MG/2 ML VIAL IV (10:00)
[2019-06-23] MEDS: GABAPENTIN 600 MG TABLET PO (10:00)
[2019-06-23 12:00] VITALS: BP 111/64; PULSE 84; RESP 16; TEMP 36.8; O2SAT 96
[2019-06-23] MEDS: OXYCODONE IR 5 MG TABLET 10 MG PO ×2 (12:06→16:45)
--- NOTE | 2019-06-23 12:44 | CM.DPC ---
DCP Cont: Patient has sign on her room door not to disturb, for she is sleeping. Discussed patient with her nurse, Mare. Stated that she was given some IV lasix today. Mare also mentioned that her lower buttock is healing. Patient resides here in [place] with her spouse, Nahun. P: DCP will continue to follow closely, and be available for any needs or resources at discharge. Home is the plan, when she is medically stable. Georgina Ag RN/Qualitative Field Project Manager
[2019-06-23] MEDS: GABAPENTIN 600 MG TABLET 1200 MG PO (13:43)
[2019-06-23 16:50] VITALS: BP 97/57; PULSE 90; RESP 18; TEMP 37.3; O2SAT 95
--- NOTE | 2019-06-23 16:59 | PM.DS.1 ---
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 She was found to be tachycardic, tachypnea with acute respiratory failure requiring supplemental oxygen. She had an Elevated mildly WBC and procalcitonin to 3.87 normal <0.5. She has history of lower extremity cellulits with rapid progression and similar presentation in the past and has had some redness and tenderness to her right upper thigh glut junction area. She also has been coughing which is wet but not particularly productive. This morning she tells me that she is feeling much better. Still weak and cold but not confused. She is not requiring oxygen. Cough is intermittent. The area over her right glut is no longer tender. She is tired and sleep was interrupted last night. tells me that she doesn't hydrate sufficiently at home but patient protests. Discharge Providers Provider Date of admission: 06/21/19 21:58 Discharge Date: 06/23/19 Primary care physician: Evelyne Jackson DO Consults: 06/22/19 11:27 Consult to Occupational Therapy Evaluate & Treat Comment: home needs, assistance with compression stockings. Physician Instructions: Evaluate and treat Consult to Physical Therapy Evaluate & Treat Comment: mobility lymphedema Physician Instructions: Evaluate and Treat Discharge provider: Evelyne Jackson DO Summary Hospital Course Discharge Diagnosis: Acute Heart failure with reduced ejection fraction LVEF 40% Acute respiratory failure Pulmonary edema vs pneumonia Pleural effusion Cellulitis Anemia chronic disease metastatic uterine cancer Chronic lower extremity lymphedema Thyroid nodule Hospital Course: 1. Infection from presumed cellulitis and pneumonia. Patient is immunosuppressed on oral chemotherapeutic agents (everolimus). Significantly elevated procalcitonin and left shift with mildly elevated WBC. Fever, rigors, confusion. Has responded well to parental antibiotics and fluid resuscitation. She has had 2 days of levofloxacin and cefazolin. Urine and blood cultures no growth at this time. Viral respiratory panel negative. 2. Pulmonary edema. She did have an oxygen requirement on presentation but none when I saw her the next morning when her lung exam was unremarkable. A BNP [id number], lung exam this morning with coarse sounds, chest xray showing pleural effusions and pulmonary congestion. Echocardiogram was ordered and her LVEF was found to be 40% with wall motion abnormalities. Dr. Best called and recommended further cardia workup at [facility] where phlebotomist medical lab assistant is available. Other considerations pneumonitis from everolimus toxicity. Small dose of furosemide, 20 mg, given today. 3. Lymphedema. At baseline with thigh high bilateral compression garments. Might benefit from gentle lymphatic drainage. 4. Metastatic uterine cancer. Her everolimus and letrozole were continued. She has a port that is due to be flushed on 06/24/2019. Hopefully this can be accomplished at [facility]. 5. Pain management. Continued home regimen of 10 mg long acting oxycodone twice daily and the 5-10 mg q 4 hours prn. 6. Hypertension. Has been hypotensive. Home meds were ordered but then held for 7. Anemia, chronic. Was at baseline on admit, decreased from dilution. Will need to repeat her UA outpatient secondary to RBC's in urine. Possibly from lovenox use. 8. Family history of arrythmogenic right ventricle. Patient had full cardiac workup about 5 years ago at [facility]. Records have been requested. DVT prophylaxis: 100 mg lovenox daily CODE STATUS: full code Patient transferred to [facility] care of Dr. Ward. Appreciate his acceptance and ongoing management. Status at Discharge Cognitive/behavioral status at discharge: oriented Functional status at discharge: independent ambulation Overall status at discharge: patient is not back to baseline Time Spent with Patient Time spent: Greater than 30 minutes Exam Vital Signs (past 8 hours): - 06/23/19 12:00 Temperature 98.2 F Pulse Rate 84 Respiratory Rate 16 Blood Pressure 111/64 Pulse Oximetry 96 Oxygen Delivery Method Room Air Oxygen Flow Rate 0 Objective Labs Result Diagrams: 06/23/19 05:45 06/23/19 05:45 Labs: Laboratory Results - last 24 hr 06/23/19 06/23/19 05:45 05:45 WBC 4.8 RBC 3.67 L Hgb 9.6 L Hct 29.2 L MCV 79.6 L MCH 26.2 MCHC 32.9 RDW 14.7 Plt Count 179 Neut % (Auto) 71.1 Lymph % (Auto) 16.2 L [place] % (Auto) 9.5 Eos % (Auto) 2.4 Baso % (Auto) 0.8 Neut # (Auto) 3400 Lymph # (Auto) 800 L [place] # (Auto) 500 Eos # (Auto) 100 Baso # (Auto) 0 Sodium 135 L Potassium 3.8 Chloride 102 Carbon Dioxide 31 BUN 9 Creatinine 0.80 Estimated GFR > 60.0 BUN/Creatinine Ratio 11.3 Glucose 103 Calcium 8.1 L Discharge Plan Discharge Plan Patient Disposition: [facility] Transfer to: [facility] Under care of provider: Dr. Arreola Discharge Med Rec/Prescriptions Prescriptions: New mirtazapine 15 mg Tablet 45 mg PO BEDTIME Qty: 270 RF: 0 gabapentin [Neurontin] 600 mg Tablet 1,200 mg PO TID Qty: 540 RF: 0 Continued letrozole [Femara] 2.5 MG tablet 2.5 mg PO DAILY Qty: 0 RF: 0 Afinitor 5 MG tablet 5 mg PO DAILY Qty: 30 RF: 0 [culterelle] Qty: 0 RF: 0 sennosides [senna] 8.6 MG tablet 8.6 mg PO QDAY PRN (Reason: Constipation) Qty: 0 RF: 0 diclofenac sodium 1 % gel 2 gram TOP BID Qty: 100 RF: 0 omeprazole 20 mg capsule,delayed release(DR/EC) 20 mg PO QDAY PRN (Reason: acid reflux) Qty: 90 RF: 3 irbesartan 300 mg tablet 300 mg PO DAILY Qty: 90 RF: 3 duloxetine 20 mg capsule,delayed release(DR/EC) 40 mg PO DAILY Qty: 180 RF: 3 cholecalciferol (vitamin D3) 50,000 unit capsule 50,000 unit PO QWEEK Qty: 10 RF: 0 oxycodone 5 mg tablet 5 mg PO Q4H PRN (Reason: pain) Qty: 180 RF: 0 oxycodone [OxyContin] 10 mg tablet,oral only,ext.rel.12 hr 10 mg PO BID Qty: 60 RF: 0 enoxaparin [Lovenox] 100 mg/mL syringe 100 mg SUBCUT DAILY Qty: 90 RF: 3 simvastatin 40 mg tablet 40 mg PO QAM Qty: 90 RF: 3 cetirizine [Zyrtec] 10 mg capsule PO RF: 0 calcium carbonate-vitamin D3 600 mg(1,500mg) -400 unit capsule PO RF: 0 Discontinued gabapentin [Neurontin] 600 mg tablet 600 mg PO DAILY Qty: 450 RF: 3 mirtazapine 15 mg tablet 15 mg PO DAILY Qty: 90 RF: 0 gabapentin 600 mg Tablet 1,200 mg PO BID RF: 0 valsartan 320 mg tablet 320 mg PO DAILY RF: 0 Follow up/Referrals: Evelyne Jackson DO [Primary Care Provider] - Discharge Health Status Brief summary of current health status: active elderly Multidrug resistant organism: No MDRO Provider Discharge Instructions Diet: Diet as Tolerated Liquid consistency: Normal/Thin Food texture: Regular Visit Report/Discharge Packet Instructions: Cellulitis Discharge Data Primary Care Provider: Evelyne Jackson
--- NOTE | 2019-06-23 18:18 | PC.NURSE ---
A%OX3 96% RA. Report given to HANY Hansen at [facility]. Pt did not eat her dinner tonight. pt dc'd with her PIV. pt on Tele. discharge packet and home meds are given to ambulance personnel.
[2019-06-28 11:15] LABS: Ionized Calcium 5.1 mg/dL (4.8-5.6)
== END 2019-06-23 17:50 | disposition short-term general hospital (02) | DRG 602 ==
LOC: ED 19:48 → AC 21:59
PROVIDERS: Admitting Provider Family Medicine; Emergency Provider Emergency Medicine; PCP Family Medicine; Visit Provider Family Medicine
DX: L03.317 Cellulitis of buttock (principal); I50.21 Acute systolic (congestive) heart failure; C79.9 Secondary malignant neoplasm of unspecified site; I97.89 Other postprocedural complications and disorders of the circulatory system, not elsewhere classified; C54.1 Malignant neoplasm of endometrium; I89.0 Lymphedema, not elsewhere classified; I11.0 Hypertensive heart disease with heart failure
CPT/HCPCS: 36415; 36591; 71046; 71275; 80048; 80053; 81003; 81015; 82330; 83605; 83690; 83880; 84145; 85025; 85610; 85730; 87040; 87086; 87633; 93005; 93306; 96361; 96365; 96366; 96367; 99223; 99233; 99285; J1650; J1940; J1956; Q9967

== ENCOUNTER → 2019-07-05 11:39 | Outpatient (CLI) | payer MEDICARE, OTHER, SELFPAY ==
[2019-06-21 23:17] VITALS: BMI 27.4
[2019-07-05 12:20] LABS: Add Manual Diff / Slide Review NO; Basophils Absolute Auto 0 /uL (0-100); Basophils Percent Auto 0.9 % (0-2); Eosinophils Absolute Auto 100 /uL (0-450); Hematocrit 33.1 % (36-46); Lymphocytes Absolute Auto 900 /uL (1100-4500); Lymphocytes Percent Auto 16.6 % (25-40); Mean Corpuscular HGB Conc 33.3 % (30-36); Mean Corpuscular Hemoglobin 26.2 PG (26-34); Mean Corpuscular Volume 78.5 fL (80-100); Monocytes Absolute Auto 400 /uL (0-900); Monocytes Percent Auto 6.8 % (3-14); Neutrophils Absolute Auto 3900 /uL (1500-7000); Neutrophils Percent Auto 73.7 % (50-75); Platelet Count 430 X10^3/uL (150-400); Red Blood Cell Count 4.21 X10^6/uL (4.0-5.2); Red Cell Distribution Width 14.7 % (11.6-14.8); White Blood Cell Count 5.3 X10^3/uL (4.5-11.0)
[2019-07-05 12:47] LABS: Alanine Aminotransferase 9 IU/L (9-52); Albumin 3.2 g/dL (3.5-5.0); Albumin Globulin Ratio 1.3 (1.0-2.8); Alkaline Phosphatase 67 U/L (38-126); Aspartate Aminotransferase 19 IU/L (14-36); Bilirubin Total 0.3 mg/dL (0.2-1.3); Blood Urea Nitrogen 15 mg/dL (7-17); Carbon Dioxide 29 mmol/L (22-32); Chloride 99 mmol/L (98-107); Estimated Glomerular Filt Rate 53.9 mL/min (>60); Globulin 2.4 g/dL (1.7-4.1); Glucose 74 mg/dL (80-110); HEMOLYSIS < 15 (0-50); Potassium 4.1 mmol/L (3.4-5.1); Sodium 138 mmol/L (137-145); Total Protein 5.6 g/dL (6.3-8.2)
[2019-07-05 13:15] LABS: Cancer Antigen 125 26 U/mL (0-35)
== END ==
PROVIDERS: PCP Family Medicine; Visit Provider Physician Assistant
DX: C54.1 Malignant neoplasm of endometrium (principal)
CPT/HCPCS: 36415; 80053; 85025; 86304

== ENCOUNTER → 2019-07-07 12:26 | Outpatient (CLI) | payer MEDICARE, OTHER, SELFPAY ==
[2019-06-21 23:17] VITALS: BMI 27.4
[2019-07-07 13:40] LABS: Lipase 78 U/L (23-300)
[2019-07-07 14:07] LABS: TSH w/ Reflex to FT4 5.33 uIU/mL (0.47-4.68)
== END ==
PROVIDERS: PCP Family Medicine; Visit Provider Family Medicine
DX: Z79.899 Other long term (current) drug therapy (principal)
CPT/HCPCS: 83690; 84439; 84443

== ENCOUNTER → 2019-08-04 13:34 | Outpatient (CLI) | payer MEDICARE, OTHER, SELFPAY ==
[2019-06-21 23:17] VITALS: BMI 27.4
--- NOTE | 2019-08-04 | DI.ECHO.S_ITS ---
[facility]---------+ [facility] +---------+ : : [address] [place] [address] : : : : [id number] : : : : Phone: [phone] Echocardiogram Report + + :Name: PIPER ANGELA Study Date: 08/04/2019 Height: 66 in : :[facility] Weight: 154 lb : : Gender: Female BSA: 1.8 m2 : :: 1940 Age: 79 yrs BP: 140/78 mmHg: :Reason For Study: STRESS CM : : Performed By: Srinath Perrin : :Referring: BILL BEAN : + + Interpretation Summary The left ventricle is normal in size. The ejection fraction is estimated to be 55-60%. Mild hypokinesis of the apical segments is noticed overall LV function seems to have improved from the last study There is mild aortic regurgitation. Procedure: A two-dimensional transthoracic echocardiogram with color flow and Doppler was performed. The study quality was technically good. Comparison is made with the echocardiogram of 06/23/19. The patient was in normal sinus rhythm during the exam. Left Ventricle: The left ventricle is normal in size. There is normal left ventricular wall thickness. The ejection fraction is estimated to be 55-60%. Mild hypokinesis of the apical segments is noticed overall LV function seems to have improved from the last study. Right Ventricle: The right ventricle is normal in size and function. Atria: The left atrium is moderately dilated. The right atrium is mildly dilated. The interatrial septum is intact with no evidence for an atrial septal defect. Mitral Valve: The mitral valve is normal in structure and function. There is trace mitral regurgitation. Aortic Valve: The aortic valve is trileaflet. The aortic valve opens well. There is mild aortic regurgitation. Tricuspid Valve: The tricuspid valve is normal in structure and function. There is trace tricuspid regurgitation. The right ventricular systolic pressure is estimated to be at least 25 mmHg based on an estimated right atrial pressure of 3 mm Hg. Pulmonic Valve: The pulmonic valve is normal in structure and function. There is trace pulmonic regurgitation. Great Vessels: The aortic root is normal size. The ascending aorta is mildly enlarged. The pulmonary artery is normal size. The IVC is of normal diameter and collapses greater than 50% with a sniff. This suggests a low right atrial pressure of 3 mm Hg. Pericardium/ Pleura There is a trivial pericardial effusion noted. There are no echocardiographic indications of cardiac tamponade. There is no pleural effusion. MMode/2D Measurements & Calculations LVIDd: 5.0 cm LVOT diam: 2.1 cm LVIDs: 3.4 cm Ao root diam: 3.0 cm FS: 31.3 % Aortic Jxn: 2.5 cm EPSS: 0.57 cm asc Aorta Diam: 3.6 cm IVSd: 0.80 cm Ao Arch Diam (Prox Trans): 2.8 cm LVPWd: 0.83 cm LV lopez. diameter/BSA (cm/m^2): 2.8 LV sys. diameter/BSA (cm/m^2): 1.9 LA dimension: 4.0 cm RA long axis: 5.0 cm LA A2 area: 25.5 cm2 RA area: 19.8 cm2 LA A4 area: 22.2 cm2 RA vol: 65.9 ml LA length (vol): 5.5 cm RA : 36.8 ml/m2 LA vol: 87.0 ml IVC diam: 2.1 cm LA vol index: 48.6 ml/m2 RVD1 (basal): 3.8 cm RVD2 (mid): 4.0 cm TAPSE: 2.2 cm Doppler Measurements & Calculations Ao V2 max: 140.3 cm/sec LVOT Max Jesus: 106.9 cm/sec Ao V2 mean: 96.1 cm/sec LV V1 max P.6 mmHg Ao max P.9 mmHg LV V1 VTI: 26.9 cm Ao mean P.0 mmHg HUMAIRA(I,D): 2.9 cm2 Ao V2 VTI: 33.6 cm HUMAIRA(V,D): 2.7 cm2 sev ratio: 0.80 HUMAIRA indexed to BSA (cm^2/m^2): 1.6 AI P1/2t: 774.8 msec AI dec slope: 148.9 cm/sec2 MV E max jesus: 59.9 cm/sec TR max jesus: 231.8 cm/sec MV A max jesus: 79.6 cm/sec TR max P.5 mmHg MV E/A: 0.75 PA V2 max: 95.4 cm/sec Med Peak E' Jesus: 4.6 cm/sec PA V2 mean: 68.8 cm/sec E/E' med: 12.9 PA mean P.0 mmHg Lat Peak E' Jesus: 4.6 cm/sec PA pr(Accel): 64.0 mmHg E/E' lat: 12.9 PA Accel Time: 0.04 sec E/e' average: 12.9 MV dec time: 0.27 sec SV(LVOT): 96.1 ml Reading Physician:01:08 PM
== END ==
PROVIDERS: Family Provider Family Medicine; PCP Family Medicine; Visit Provider Hospitalist
DX: I35.1 Nonrheumatic aortic (valve) insufficiency (principal); I51.81 Takotsubo syndrome; I77.89 Other specified disorders of arteries and arterioles
CPT/HCPCS: 93306

== ENCOUNTER → 2019-09-01 12:26 | Outpatient (CLI) | payer MEDICARE, OTHER, SELFPAY ==
[2019-06-21 23:17] VITALS: BMI 27.4
[2019-09-01 13:01] LABS: Add Manual Diff / Slide Review NO; Basophils Absolute Auto 0 /uL (0-100); Basophils Percent Auto 0.5 % (0-2); Eosinophils Absolute Auto 100 /uL (0-450); Eosinophils Percent Auto 1.4 % (2-4); Hematocrit 33.8 % (36-46); Hemoglobin 11.2 g/dL (12.0-16.0); Lymphocytes Absolute Auto 1000 /uL (1100-4500); Lymphocytes Percent Auto 21.6 % (25-40); Mean Corpuscular HGB Conc 33.2 % (30-36); Mean Corpuscular Volume 78.4 fL (80-100); Monocytes Absolute Auto 400 /uL (0-900); Monocytes Percent Auto 8.7 % (3-14); Neutrophils Absolute Auto 3100 /uL (1500-7000); Neutrophils Percent Auto 67.8 % (50-75); Platelet Count 268 X10^3/uL (150-400); Red Blood Cell Count 4.31 X10^6/uL (4.0-5.2); Red Cell Distribution Width 16.2 % (11.6-14.8); White Blood Cell Count 4.6 X10^3/uL (4.5-11.0)
[2019-09-01 13:30] LABS: Alanine Aminotransferase 8 IU/L (<35); Albumin 3.3 g/dL (3.5-5.0); Albumin Globulin Ratio 1.5 (1.0-2.8); Alkaline Phosphatase 69 U/L (38-126); Aspartate Aminotransferase 20 IU/L (14-36); BUN Creatinine Ratio 14.5 (6-22); Bilirubin Total 0.3 mg/dL (0.2-1.3); Blood Urea Nitrogen 16 mg/dL (7-17); Calcium 8.9 mg/dL (8.4-10.2); Carbon Dioxide 30 mmol/L (22-32); Chloride 98 mmol/L (98-107); Estimated Glomerular Filt Rate 48.2 mL/min (>60); Globulin 2.2 g/dL (1.7-4.1); Glucose 85 mg/dL (80-110); HEMOLYSIS 19 (0-50); Potassium 4.7 mmol/L (3.4-5.1); Sodium 135 mmol/L (137-145); Total Protein 5.5 g/dL (6.3-8.2)
[2019-09-01 13:48] LABS: Free T3, Triiodothyronine Free 2.94 pg/mL (2.77-5.27); Free T4, Direct Thyroxine 1.58 ng/dL (0.78-2.19)
[2019-09-01 14:00] LABS: Cancer Antigen 125 14 U/mL (0-35)
[2019-09-01 14:01] LABS: Thyroid Stimulating Hormone 5.32 uIU/mL (0.47-4.68)
== END ==
PROVIDERS: Family Provider Family Medicine; PCP Family Medicine; Visit Provider Physician Assistant
DX: C54.1 Malignant neoplasm of endometrium (principal); G89.29 Other chronic pain; I10 Essential (primary) hypertension; I21.9 Acute myocardial infarction, unspecified; I25.10 Atherosclerotic heart disease of native coronary artery without angina pectoris; I48.91 Unspecified atrial fibrillation; I50.20 Unspecified systolic (congestive) heart failure; M79.604 Pain in right leg; M79.605 Pain in left leg
CPT/HCPCS: 36415; 80053; 84439; 84443; 84481; 85025; 86304

== ENCOUNTER → 2019-09-29 10:43 | Outpatient (CLI) | payer MEDICARE, OTHER, SELFPAY ==
[2019-06-21 23:17] VITALS: BMI 27.4
[2019-09-29 11:53] LABS: Add Manual Diff / Slide Review NO; Basophils Absolute Auto 0 /uL (0-100); Basophils Percent Auto 1.3 % (0-2); Eosinophils Absolute Auto 100 /uL (0-450); Eosinophils Percent Auto 2.3 % (2-4); Hematocrit 34.2 % (36-46); Hemoglobin 11.4 g/dL (12.0-16.0); Lymphocytes Absolute Auto 1000 /uL (1100-4500); Lymphocytes Percent Auto 29.9 % (25-40); Mean Corpuscular HGB Conc 33.3 % (30-36); Mean Corpuscular Hemoglobin 26.4 PG (26-34); Mean Corpuscular Volume 79.3 fL (80-100); Monocytes Absolute Auto 300 /uL (0-900); Monocytes Percent Auto 8.7 % (3-14); Neutrophils Absolute Auto 1900 /uL (1500-7000); Neutrophils Percent Auto 57.8 % (50-75); Platelet Count 237 X10^3/uL (150-400); Red Blood Cell Count 4.31 X10^6/uL (4.0-5.2); Red Cell Distribution Width 15.9 % (11.6-14.8); White Blood Cell Count 3.3 X10^3/uL (4.5-11.0)
[2019-09-29 12:13] LABS: Alanine Aminotransferase 8 IU/L (<35); Albumin 3.7 g/dL (3.5-5.0); Albumin Globulin Ratio 1.4 (1.0-2.8); Alkaline Phosphatase 71 U/L (38-126); Aspartate Aminotransferase 19 IU/L (14-36); Bilirubin Total 0.4 mg/dL (0.2-1.3); Blood Urea Nitrogen 14 mg/dL (7-17); Calcium 9.6 mg/dL (8.4-10.2); Carbon Dioxide 32 mmol/L (22-32); Chloride 102 mmol/L (98-107); Cholesterol 221 mg/dL (140-199); Estimated Glomerular Filt Rate 53.8 mL/min (>60); Globulin 2.6 g/dL (1.7-4.1); Glucose 84 mg/dL (80-110); HDL Cholesterol 68 mg/dL (40-60); HEMOLYSIS < 15 (0-50); LDL Cholesterol Calculated 131 mg/dL (<100); Sodium 142 mmol/L (137-145); Total Protein 6.3 g/dL (6.3-8.2); Triglycerides 111 mg/dL (35-150)
[2019-09-29 15:24] LABS: Cancer Antigen 125 11 U/mL (0-35)
== END ==
PROVIDERS: PCP Family Medicine; Visit Provider Obstetrics & Gynecology Gynecologic Oncology
DX: E78.2 Mixed hyperlipidemia (principal); C54.1 Malignant neoplasm of endometrium; Z79.899 Other long term (current) drug therapy
CPT/HCPCS: 36415; 80053; 80061; 85025; 86304

== ENCOUNTER → 2019-10-27 12:57 | Outpatient (CLI) | payer MEDICARE, OTHER, SELFPAY ==
[2019-06-21 23:17] VITALS: BMI 27.4
[2019-10-27 13:29] LABS: Add Manual Diff / Slide Review NO; Basophils Absolute Auto 0 /uL (0-100); Basophils Percent Auto 1.3 % (0-2); Eosinophils Absolute Auto 100 /uL (0-450); Eosinophils Percent Auto 2.8 % (2-4); Hematocrit 33.4 % (36-46); Hemoglobin 11.2 g/dL (12.0-16.0); Lymphocytes Absolute Auto 800 /uL (1100-4500); Lymphocytes Percent Auto 20.9 % (25-40); Mean Corpuscular HGB Conc 33.4 % (30-36); Mean Corpuscular Hemoglobin 26.3 PG (26-34); Mean Corpuscular Volume 78.6 fL (80-100); Monocytes Absolute Auto 300 /uL (0-900); Monocytes Percent Auto 8.6 % (3-14); Neutrophils Absolute Auto 2500 /uL (1500-7000); Neutrophils Percent Auto 66.4 % (50-75); Platelet Count 258 X10^3/uL (150-400); Red Blood Cell Count 4.24 X10^6/uL (4.0-5.2); Red Cell Distribution Width 15.3 % (11.6-14.8); White Blood Cell Count 3.8 X10^3/uL (4.5-11.0)
[2019-10-27 14:14] LABS: Alanine Aminotransferase 7 IU/L (<35); Albumin 3.4 g/dL (3.5-5.0); Albumin Globulin Ratio 1.5 (1.0-2.8); Alkaline Phosphatase 76 U/L (38-126); Aspartate Aminotransferase 17 IU/L (14-36); BUN Creatinine Ratio 15.6 (6-22); Bilirubin Total 0.2 mg/dL (0.2-1.3); Blood Urea Nitrogen 14 mg/dL (7-17); Calcium 8.8 mg/dL (8.4-10.2); Carbon Dioxide 31 mmol/L (22-32); Chloride 100 mmol/L (98-107); Estimated Glomerular Filt Rate > 60.0 mL/min (>60); Globulin 2.2 g/dL (1.7-4.1); Glucose 86 mg/dL (80-110); HEMOLYSIS < 15 (0-50); Potassium 4.1 mmol/L (3.4-5.1); Sodium 137 mmol/L (137-145); Total Protein 5.6 g/dL (6.3-8.2)
[2019-10-27 14:43] LABS: Cancer Antigen 125 13 U/mL (0-35)
== END ==
PROVIDERS: PCP Family Medicine; Visit Provider Physician Assistant
DX: C54.1 Malignant neoplasm of endometrium (principal)
CPT/HCPCS: 36415; 80053; 85025; 86304

== ENCOUNTER → 2019-12-23 12:09 | Outpatient (CLI) | payer MEDICARE, OTHER, SELFPAY ==
[2019-06-21 23:17] VITALS: BMI 27.4
[2019-12-23 13:25] LABS: Free T3, Triiodothyronine Free 2.94 pg/mL (2.77-5.27)
[2019-12-23 13:39] LABS: Thyroid Stimulating Hormone 2.16 uIU/mL (0.47-4.68)
== END ==
PROVIDERS: PCP Family Medicine; Referring Provider Family Medicine; Visit Provider Family Medicine
DX: E03.9 Hypothyroidism, unspecified (principal)
CPT/HCPCS: 36415; 84439; 84443; 84481

== ENCOUNTER → 2020-02-14 10:02 | Outpatient (CLI) | payer MEDICARE, OTHER, SELFPAY ==
[2019-06-21 23:17] VITALS: BMI 27.4
[2020-02-14 10:41] LABS: Add Manual Diff / Slide Review NO; Basophils Absolute Auto 0 /uL (0-100); Basophils Percent Auto 1.1 % (0-2); Eosinophils Absolute Auto 100 /uL (0-450); Eosinophils Percent Auto 2.4 % (2-4); Hematocrit 34.3 % (36-46); Hemoglobin 11.5 g/dL (12.0-16.0); Lymphocytes Absolute Auto 900 /uL (1100-4500); Lymphocytes Percent Auto 22.8 % (25-40); Mean Corpuscular HGB Conc 33.5 % (30-36); Mean Corpuscular Hemoglobin 26.8 PG (26-34); Monocytes Absolute Auto 400 /uL (0-900); Monocytes Percent Auto 10.5 % (3-14); Neutrophils Absolute Auto 2400 /uL (1500-7000); Neutrophils Percent Auto 63.2 % (50-75); Platelet Count 275 X10^3/uL (150-400); Red Blood Cell Count 4.28 X10^6/uL (4.0-5.2); Red Cell Distribution Width 13.8 % (11.6-14.8); White Blood Cell Count 3.9 X10^3/uL (4.5-11.0)
[2020-02-14 10:55] LABS: Alanine Aminotransferase 10 IU/L (<35); Albumin 3.8 g/dL (3.5-5.0); Albumin Globulin Ratio 1.3 (1.0-2.8); Alkaline Phosphatase 74 U/L (38-126); Aspartate Aminotransferase 21 IU/L (14-36); BUN Creatinine Ratio 17.7 (6-22); Bilirubin Total 0.2 mg/dL (0.2-1.3); Blood Urea Nitrogen 17 mg/dL (7-17); Calcium 9.3 mg/dL (8.4-10.2); Carbon Dioxide 32 mmol/L (22-32); Chloride 101 mmol/L (98-107); Cholesterol 223 mg/dL (140-199); Estimated Glomerular Filt Rate 56.4 mL/min (>60); Glucose 87 mg/dL (80-110); HDL Cholesterol 62 mg/dL (40-60); HEMOLYSIS < 15 (0-50); LDL Cholesterol Calculated 139 mg/dL (<100); Potassium 4.1 mmol/L (3.4-5.1); Sodium 139 mmol/L (137-145); Total Protein 6.8 g/dL (6.3-8.2); Triglycerides 110 mg/dL (35-150)
[2020-02-14 11:21] LABS: Cancer Antigen 125 13.6 U/mL (0-35)
== END ==
PROVIDERS: PCP Family Medicine; Referring Provider Obstetrics & Gynecology Gynecologic Oncology; Visit Provider Obstetrics & Gynecology Gynecologic Oncology
DX: C54.1 Malignant neoplasm of endometrium (principal); Z79.899 Other long term (current) drug therapy
CPT/HCPCS: 36415; 80053; 80061; 85025; 86304

== ENCOUNTER → 2020-05-03 17:51 | Outpatient (CLI) | payer MEDICARE, OTHER, SELFPAY ==
[2019-06-21 23:17] VITALS: BMI 27.4
== END ==
PROVIDERS: PCP Family Medicine; Visit Provider Physician Assistant
DX: L03.011 Cellulitis of right finger (principal)
CPT/HCPCS: 87070; 87205

== ENCOUNTER → 2020-05-12 14:19 | Outpatient (CLI) | payer MEDICARE, OTHER, SELFPAY ==
[2019-06-21 23:17] VITALS: BMI 27.4
[2020-05-12 16:45] LABS: Add Manual Diff / Slide Review NO; Basophils Absolute Auto 0 /uL (0-100); Basophils Percent Auto 0.9 % (0-2); Eosinophils Absolute Auto 100 /uL (0-450); Eosinophils Percent Auto 1.1 % (2-4); Hematocrit 32.8 % (36-46); Hemoglobin 10.7 g/dL (12.0-16.0); Lymphocytes Absolute Auto 1100 /uL (1100-4500); Lymphocytes Percent Auto 21.5 % (25-40); Mean Corpuscular HGB Conc 32.6 % (30-36); Mean Corpuscular Hemoglobin 25.9 PG (26-34); Mean Corpuscular Volume 79.4 fL (80-100); Monocytes Absolute Auto 500 /uL (0-900); Monocytes Percent Auto 9.8 % (3-14); Neutrophils Absolute Auto 3400 /uL (1500-7000); Neutrophils Percent Auto 66.7 % (50-75); Platelet Count 301 X10^3/uL (150-400); Red Blood Cell Count 4.13 X10^6/uL (4.0-5.2); Red Cell Distribution Width 14.7 % (11.6-14.8); White Blood Cell Count 5.1 X10^3/uL (4.5-11.0)
[2020-05-12 17:21] LABS: Cholesterol 173 mg/dL (140-199); HDL Cholesterol 72 mg/dL (40-60); LDL Cholesterol Calculated 61 mg/dL (<100); Triglycerides 202 mg/dL (35-150)
[2020-05-12 17:22] LABS: Alanine Aminotransferase 8 IU/L (<35); Albumin 3.5 g/dL (3.5-5.0); Albumin Globulin Ratio 1.3 (1.0-2.8); Alkaline Phosphatase 86 U/L (38-126); Aspartate Aminotransferase 19 IU/L (14-36); BUN Creatinine Ratio 15.8 (6-22); Bilirubin Total 0.2 mg/dL (0.2-1.3); Blood Urea Nitrogen 15 mg/dL (7-17); Calcium 9.2 mg/dL (8.4-10.2); Carbon Dioxide 33 mmol/L (22-32); Chloride 99 mmol/L (98-107); Globulin 2.7 g/dL (1.7-4.1); Glucose 78 mg/dL (80-110); HEMOLYSIS < 15 (0-50); Sodium 136 mmol/L (137-145); Total Protein 6.2 g/dL (6.3-8.2)
[2020-05-12 17:32] LABS: Vitamin D 25 Hydroxy (D3) 44.8 ng/mL (30.0-100.0)
[2020-05-12 17:48] LABS: Cancer Antigen 125 12.4 U/mL (0-35)
== END ==
PROVIDERS: PCP Family Medicine; Referring Provider Obstetrics & Gynecology Gynecologic Oncology; Visit Provider Obstetrics & Gynecology Gynecologic Oncology
DX: C54.1 Malignant neoplasm of endometrium (principal); Z51.11 Encounter for antineoplastic chemotherapy; E78.5 Hyperlipidemia, unspecified; M81.0 Age-related osteoporosis without current pathological fracture; M85.80 Other specified disorders of bone density and structure, unspecified site
CPT/HCPCS: 36415; 80053; 80061; 82306; 85025; 86304

== ENCOUNTER → 2020-05-16 15:23 | Outpatient (CLI) | payer MEDICARE, OTHER, SELFPAY ==
[2019-06-21 23:17] VITALS: BMI 27.4
[2020-05-16 16:38] LABS: HEMOLYSIS < 15 (0-50); Iron 38 ug/dL (37-170)
[2020-05-16 16:49] LABS: Percent Iron Saturation 16 % (15-50); Total Iron Binding Capacity 241 ug/dL (265-497); Transferrin 187 mg/dL (206-381)
[2020-05-16 17:16] LABS: Ferritin 30 ng/mL (11-264)
== END ==
PROVIDERS: PCP Family Medicine; Referring Provider Family Medicine; Visit Provider Family Medicine
DX: D64.9 Anemia, unspecified (principal)
CPT/HCPCS: 36415; 82728; 83540; 83550

== ENCOUNTER → 2020-07-05 14:02 | Outpatient (CLI) | payer MEDICARE, OTHER, SELFPAY ==
[2019-06-21 23:17] VITALS: BMI 27.4
[2020-07-05 14:38] VITALS: BP 135/79; PULSE 15; RESP 15; TEMP 36.7; O2SAT 97
[2020-07-05] MEDS: ZOLEDRONIC ACID 5 MG in SODIUM CHLORIDE 0.9% 100 ML 425 ML IV (14:38)
== END ==
PROVIDERS: PCP Family Medicine; Referring Provider Family Medicine; Visit Provider Family Medicine
DX: M81.0 Age-related osteoporosis without current pathological fracture (principal)
CPT/HCPCS: 96365; J3489

== ENCOUNTER → 2020-08-10 10:29 | Outpatient (CLI) | payer MEDICARE, OTHER, SELFPAY ==
[2019-06-21 23:17] VITALS: BMI 27.4
[2020-08-10 12:16] LABS: Add Manual Diff / Slide Review NO; Basophils Absolute Auto 0 /uL (0-100); Basophils Percent Auto 0.8 % (0-2); Eosinophils Absolute Auto 100 /uL (0-450); Eosinophils Percent Auto 2.2 % (2-4); Hematocrit 31.4 % (36-46); Hemoglobin 10.2 g/dL (12.0-16.0); Lymphocytes Absolute Auto 900 /uL (1100-4500); Mean Corpuscular HGB Conc 32.4 % (30-36); Mean Corpuscular Hemoglobin 25.4 PG (26-34); Mean Corpuscular Volume 78.4 fL (80-100); Monocytes Absolute Auto 300 /uL (0-900); Monocytes Percent Auto 7.7 % (3-14); Neutrophils Absolute Auto 3100 /uL (1500-7000); Neutrophils Percent Auto 68.3 % (50-75); Platelet Count 253 X10^3/uL (150-400); Red Blood Cell Count 4.01 X10^6/uL (4.0-5.2); Red Cell Distribution Width 15.8 % (11.6-14.8); White Blood Cell Count 4.5 X10^3/uL (4.5-11.0)
[2020-08-10 12:23] LABS: HEMOLYSIS < 15 (0-50)
[2020-08-10 12:33] LABS: Alanine Aminotransferase 6 IU/L (<35); Albumin 3.7 g/dL (3.5-5.0); Albumin Globulin Ratio 1.2 (1.0-2.8); Alkaline Phosphatase 92 U/L (38-126); Aspartate Aminotransferase 20 IU/L (14-36); BUN Creatinine Ratio 10.7 (6-22); Bilirubin Total 0.4 mg/dL (0.2-1.3); Blood Urea Nitrogen 13 mg/dL (7-17); Calcium 9.3 mg/dL (8.4-10.2); Carbon Dioxide 35 mmol/L (22-32); Chloride 103 mmol/L (98-107); Cholesterol 193 mg/dL (140-199); Glucose 91 mg/dL (80-110); HDL Cholesterol 62 mg/dL (40-60); LDL Cholesterol Calculated 96 mg/dL (<100); Potassium 3.9 mmol/L (3.4-5.1); Sodium 139 mmol/L (137-145); Total Protein 6.7 g/dL (6.3-8.2); Triglycerides 175 mg/dL (35-150)
[2020-08-10 13:05] LABS: Cancer Antigen 125 16.6 U/mL (0-35)
[2020-08-10 18:12] LABS: Ferritin 35 ng/mL (11-264)
== END ==
PROVIDERS: PCP Family Medicine; Referring Provider Family Medicine; Visit Provider Obstetrics & Gynecology Gynecologic Oncology
DX: C54.1 Malignant neoplasm of endometrium (principal); Z79.899 Other long term (current) drug therapy; E78.2 Mixed hyperlipidemia; D64.9 Anemia, unspecified; I10 Essential (primary) hypertension
CPT/HCPCS: 36415; 80053; 80061; 82728; 85025; 86304

== ENCOUNTER → 2020-08-15 15:13 | Outpatient (CLI) | payer MEDICARE, OTHER, SELFPAY ==
[2019-06-21 23:17] VITALS: BMI 27.4
--- NOTE | 2020-08-15 15:19 | DI.RAD.S_ITS ---
PROCEDURE: XR WRIST LT MIN 3V INDICATIONS: L ulnar wrist pain TECHNIQUE: 4 views of the wrist were acquired. COMPARISON: None. FINDINGS: Bones: No fractures or dislocations. No suspicious bony lesions. Periarticular osteophyte formation at the radial carpal, scaphoid trapezial, and 1st carpometacarpal joints. Scaphoid view: Negative Soft tissues: Calcification of the triangular fibrocartilage complex. IMPRESSION: 1. Osteoarthritis. 2. Chondrocalcinosis. 3. No acute fracture. No osseous lesion. If symptoms and/or clinical suspicion for pathology persist, further assessment with repeat, or advanced imaging (e.g., CT, MRI, or bone scan) may be helpful for further assessment. Dictated by: Tito Fitzgerald M.D. on 08/15/2020 at 15:43 Approved by: Tito Fitzgerald M.D. on 08/15/2020 at 15:44
== END ==
PROVIDERS: PCP Family Medicine; Referring Provider Nurse Practitioner; Visit Provider Nurse Practitioner
DX: M25.532 Pain in left wrist (principal); M19.032 Primary osteoarthritis, left wrist; M11.232 Other chondrocalcinosis, left wrist
CPT/HCPCS: 73110

== ENCOUNTER → 2020-09-22 14:39 | Outpatient (CLI) | payer MEDICARE, OTHER, SELFPAY ==
[2019-06-21 23:17] VITALS: BMI 27.4
[2020-09-22 15:19] LABS: Add Manual Diff / Slide Review NO; Basophils Absolute Auto 100 /uL (0-100); Basophils Percent Auto 1.9 % (0-2); Eosinophils Absolute Auto 100 /uL (0-450); Eosinophils Percent Auto 2.1 % (2-4); Hematocrit 29.7 % (36-46); Lymphocytes Absolute Auto 1000 /uL (1100-4500); Lymphocytes Percent Auto 33.6 % (25-40); Mean Corpuscular HGB Conc 33.8 % (30-36); Mean Corpuscular Hemoglobin 26.2 PG (26-34); Mean Corpuscular Volume 77.7 fL (80-100); Monocytes Absolute Auto 300 /uL (0-900); Monocytes Percent Auto 8.8 % (3-14); Neutrophils Absolute Auto 1600 /uL (1500-7000); Neutrophils Percent Auto 53.6 % (50-75); Platelet Count 241 X10^3/uL (150-400); Red Blood Cell Count 3.83 X10^6/uL (4.0-5.2); Red Cell Distribution Width 16.5 % (11.6-14.8)
[2020-09-22 15:44] LABS: Alanine Aminotransferase 5 IU/L (<35); Albumin 3.5 g/dL (3.5-5.0); Albumin Globulin Ratio 1.3 (1.0-2.8); Alkaline Phosphatase 69 U/L (38-126); Aspartate Aminotransferase 19 IU/L (14-36); BUN Creatinine Ratio 16.8 (6-22); Bilirubin Total 0.2 mg/dL (0.2-1.3); Blood Urea Nitrogen 18 mg/dL (7-17); Calcium 8.6 mg/dL (8.4-10.2); Carbon Dioxide 34 mmol/L (22-32); Chloride 103 mmol/L (98-107); Estimated Glomerular Filt Rate 49.6 mL/min (>60); Globulin 2.8 g/dL (1.7-4.1); Glucose 93 mg/dL (80-110); HEMOLYSIS < 15 (0-50); Potassium 4.3 mmol/L (3.4-5.1); Sodium 136 mmol/L (137-145); Total Protein 6.3 g/dL (6.3-8.2)
== END ==
PROVIDERS: PCP Family Medicine; Referring Provider Obstetrics & Gynecology Gynecologic Oncology; Visit Provider Obstetrics & Gynecology Gynecologic Oncology
DX: C54.1 Malignant neoplasm of endometrium (principal)
CPT/HCPCS: 36415; 80053; 85025

== ENCOUNTER → 2021-02-19 16:34 | Outpatient (CLI) | payer MEDICARE, OTHER, SELFPAY ==
[2019-06-21 23:17] VITALS: BMI 27.4
--- NOTE | 2021-02-19 16:36 | DI.RAD.S_ITS ---
PROCEDURE: XR HAND RT MIN 3V INDICATIONS: mcp, pip, dip joint deformity TECHNIQUE: 3 views of the hand(s) acquired. COMPARISON: None. FINDINGS: Bones: No fractures or dislocations. Carpal bones are normally aligned. No suspicious bony lesions. Multifocal joint space narrowing and periarticular osteophyte formation at the scaphoid trapezial, 1st carpometacarpal joint, 1st metacarpophalangeal joint, as well as the interphalangeal joints of the digits, indicating osteoarthritis. Soft tissues: Calcification of the triangular fibrocartilage complex. IMPRESSION: 1. Multifocal osteoarthritis. 2. Chondrocalcinosis. Dictated by: Tito Fitzgerald M.D. on 02/19/2021 at 17:06 Approved by: Tito Fitzgerald M.D. on 02/19/2021 at 17:06
--- NOTE | 2021-02-19 16:36 | DI.RAD.S_ITS ---
PROCEDURE: XR HAND LT MIN 3V INDICATIONS: mcp, pip, dip joint deformity TECHNIQUE: 3 views of the hand(s) acquired. COMPARISON: None. FINDINGS: Bones: No fractures or dislocations. Carpal bones are normally aligned. No suspicious bony lesions. Multifocal joint space narrowing and periarticular osteophyte formation at the scaphoid trapezial, 1st carpometacarpal joint, as well as the interphalangeal joints of the digits, indicating osteoarthritis. Mild subluxation at the 2nd and 3rd distal interphalangeal joints as well as the 1st carpometacarpal joint. Periarticular osteophyte formation at the 3rd metacarpophalangeal joint. Soft tissues: No suspicious soft tissue calcifications. IMPRESSION: Multifocal osteoarthritis with associated subluxations. No acute fracture. No osseous lesion. If symptoms and/or clinical suspicion for pathology persist, further assessment with repeat, or advanced imaging (e.g., CT, MRI, or bone scan) may be helpful for further assessment. Dictated by: Tito Fitzgerald M.D. on 02/19/2021 at 17:05 Approved by: Tito Fitzgerald M.D. on 02/19/2021 at 17:06
== END ==
PROVIDERS: PCP Family Medicine; Referring Provider Family Medicine; Visit Provider Family Medicine
DX: M19.042 Primary osteoarthritis, left hand (principal); M19.041 Primary osteoarthritis, right hand; S63.042A Subluxation of carpometacarpal joint of left thumb, initial encounter; S63.22 Subluxation of unspecified interphalangeal joint of finger; M11.241 Other chondrocalcinosis, right hand
CPT/HCPCS: 73130

== ENCOUNTER → 2021-03-14 15:39 | Outpatient (CLI) | payer MEDICARE, OTHER, SELFPAY ==
[2019-06-21 23:17] VITALS: BMI 27.4
--- NOTE | 2021-03-14 15:42 | DI.MG.S_ITS ---
BILATERAL DIGITAL SCREENING MAMMOGRAM 3D/2D WITH CAD: 03/14/2021 CLINICAL: Routine screening. Comparison is made to exams dated: 09/01/2018 mammogram [facility], 06/13/2017 mammogram, and 03/04/2016 mammogram - [facility]. The tissue of both breasts is heterogeneously dense. This may lower the sensitivity of mammography. Current study was also evaluated with a Computer Aided Detection (CAD) system. There is a possible asymmetry in the left breast middle depth lateral region seen on the craniocaudal view only. This is more prominent. No other significant masses, calcifications, or other findings are seen in either breast. IMPRESSION: INCOMPLETE: NEEDS ADDITIONAL IMAGING EVALUATION The possible asymmetry in the left breast is indeterminate. Additional views with possible ultrasound are recommended. This exam was interpreted at Station ID: [id number]. NOTE: For mammograms, a report in lay terms will be sent to the patient. Approximately 15% of breast malignancies will not be visualized mammographically. In the management of a palpable breast mass, a negative mammogram must not discourage biopsy of a clinically suspicious lesion. Electronically Signed By: Ori dunbar/messi:03/14/2021 18:20:07 copy to: RYLEY SHEIKH letter sent: Additional Imaging Needed ACR BI-RADS Category 0: Incomplete [id number]
== END ==
PROVIDERS: PCP Family Medicine; Referring Provider Obstetrics & Gynecology Gynecologic Oncology; Visit Provider Obstetrics & Gynecology Gynecologic Oncology
DX: Z12.31 Encounter for screening mammogram for malignant neoplasm of breast (principal)
CPT/HCPCS: 77063; 77067

== ENCOUNTER → 2021-03-28 15:23 | Outpatient (CLI) | payer MEDICARE, OTHER, SELFPAY ==
[2019-06-21 23:17] VITALS: BMI 27.4
[2021-03-28 16:47] LABS: Add Manual Diff / Slide Review NO; Basophils Absolute Auto 100 /uL (0-100); Basophils Percent Auto 0.9 % (0-2); Eosinophils Absolute Auto 100 /uL (0-450); Eosinophils Percent Auto 1.3 % (2-4); Hematocrit 35.4 % (36-46); Lymphocytes Absolute Auto 1700 /uL (1100-4500); Lymphocytes Percent Auto 25.4 % (25-40); Mean Corpuscular HGB Conc 33.8 % (30-36); Mean Corpuscular Hemoglobin 30.2 PG (26-34); Mean Corpuscular Volume 89.3 fL (80-100); Monocytes Absolute Auto 600 /uL (0-900); Monocytes Percent Auto 9.5 % (3-14); Neutrophils Absolute Auto 4200 /uL (1500-7000); Neutrophils Percent Auto 62.9 % (50-75); Platelet Count 267 X10^3/uL (150-400); Red Blood Cell Count 3.96 X10^6/uL (4.0-5.2); Red Cell Distribution Width 13.8 % (11.6-14.8); White Blood Cell Count 6.6 X10^3/uL (4.5-11.0)
[2021-03-28 17:08] LABS: Alanine Aminotransferase 7 IU/L (<35); Albumin 3.4 g/dL (3.5-5.0); Albumin Globulin Ratio 1.3 (1.0-2.8); Alkaline Phosphatase 47 U/L (38-126); Aspartate Aminotransferase 16 IU/L (14-36); BUN Creatinine Ratio 16.7 (6-22); Bilirubin Total 0.2 mg/dL (0.2-1.3); Blood Urea Nitrogen 19 mg/dL (7-17); Calcium 9.2 mg/dL (8.4-10.2); Carbon Dioxide 28 mmol/L (22-32); Chloride 102 mmol/L (98-107); Estimated Glomerular Filt Rate 46.1 mL/min (>60); Globulin 2.6 g/dL (1.7-4.1); Glucose 99 mg/dL (80-110); HEMOLYSIS < 15 (0-50); Sodium 135 mmol/L (137-145)
[2021-03-28 17:38] LABS: Cancer Antigen 125 10.2 U/mL (0-35)
== END ==
PROVIDERS: PCP Family Medicine; Referring Provider Obstetrics & Gynecology Gynecologic Oncology; Visit Provider Obstetrics & Gynecology Gynecologic Oncology
DX: C54.1 Malignant neoplasm of endometrium (principal)
CPT/HCPCS: 36415; 80053; 85025; 86304

== ENCOUNTER 2021-04-03 13:30 | Outpatient (RCR) | payer MEDICARE, OTHER, SELFPAY ==
[2019-06-21 23:17] VITALS: BMI 27.4
--- NOTE | 2021-03-15 17:13 | PT.OIE ---
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) Hypertension (~2010) Lymphedema of both lower extremities Malignant neoplasm of endometrium (~2006) Measles (~1943) Mumps (~1943) Myocardial infarction (~06/2019) Paronychia of finger of right hand Sepsis Systolic heart failure secondary to coronary artery disease (~06/29/19) Vision abnormalities Weight loss Past Surgical History (Last Reviewed 08/15/20 @ 16:51 by ABEL Haro) Status post breast biopsy (~1967) Status post hysterectomy (~2006) Status post tubal ligation (~1988) Visit Care Team Role Provider Type Evelyne Jackson DO Attending Provider Physician Primary Care Provider Referring Provider Specialty: [facility] Address: [address] [place] [address], [address], [facility] Email: [email or web address] Physical Therapy Initial Evaluation PT-OP-A Visit Information Start: 03/13/21 20:44 Freq: Status: Active Protocol: Document 03/15/21 09:46 LRN (Rec: 03/15/21 10:49 LRN [id number]) Out-Patient Physical Therapy Visit Information Visit Information Visit Type Initial Evaluation Visit Start Time 09:46 Visit Stop Time 10:36 Total Visit Minutes 50 Visit Number 1 Evaluation Information Evaluation Date 03/15/21 Precautions Precautions Osteoporosis, Multiple CA - 2007 with radiation & surgery, 2007 - extension radiation, and 2014 - Clinical medication trial (in [place]), and 2020 had cyber knife treatment CA in R groin (targeted radiation) in R lymph node ( due to endometrial cancer) ending in early December 2020. Mild heart attack 06/2019, Cellulitis of LE's. 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 PT-OP-B Current Condition Start: 03/13/21 20:44 Freq: Status: Active Protocol: Document 03/15/21 09:46 LRN (Rec: 03/15/21 10:49 LRN [id number]) Current Condition History of Current Condition Onset Date 2018 with worsening and locking of fingers 03/2020 Current Complaints L hand ringer finger locks, and bilateral pain at knuckles . History of Current Condition L hand has a problem due to ring finger curls and locks and has to physically open it up. Mid 2019 L hand started locking in fingers Prior Treatments and Tests Tylenol. Other medications for pain that may be helping the hands. Treatment Goals Patient/Caregiver Goals Pt goal with therapy is to help limit locking of L ring finger and decrease pain in R hand with lifting, to be able to put on pressure garment without the L ring finger locking. Prior Functional Status Baseline Function- ADL's Independent Baseline Function- Mobility Independent Baseline Function- Gait Limps with gait and slow due to lymphedema in LE's Baseline Function- Other No locking of fingers. Works outside in yard. Current Functional Impairments (Reported) Functional Limitations- ADL's Pt R handed; therefore feels pain in posterior R hand with lifting purse. Decreased ability to lift due to R handed pain Decreased ability to dress ( compression clothes) due to locking or L ring finger. Personal Factors Other Personal Factors That May Effect Recent history of endometrial Therapy/Recovery cancer with very recent cyber knife treatment. Spouse needs hip replacement and recently diagnosed with anal cancer; therefore pt is trying to help spouse. PT-OP-C Subjective Start: 03/13/21 20:44 Freq: Status: Active Protocol: Document 03/15/21 09:46 LRN (Rec: 03/15/21 17:13 LRN [id number]) Patient Questionnaires Quick Dash- Upper Extremity Quick Dash UE Score 27.27 Quick Dash UE Impairment 20 to 39% Impaired (Score 20- 39) OP-PT Pain Assessment Location Right Hand Pain Location Details Volar & Phelps surface of hand and middel finger Intensity 6 Scale Used Numeric (0 - 10) Description Aching Left Hand Pain Location Details Ring finger: volar surface finger; phelps surface finger &3rd finger MCP jt Intensity 4 Scale Used Numeric (0 - 10) Description Aching PT-OP-J Posture/Palpation/Skin Start: 03/13/21 20:44 Freq: Status: Active Protocol: Document 03/15/21 09:46 LRN (Rec: 03/15/21 10:49 LRN [id number]) Posture Evaluation Position Sitting Head/C-Spine Posture Forward Head L-Spine Posture Decreased Lordosis Comments Posture Comments Deformity of fingers consistent with arthritis. Atrophy of intrinsic muscles of the hands. PT-OP-K Range of Motion Start: 03/13/21 20:44 Freq: Status: Active Protocol: Document 03/15/21 09:46 LRN (Rec: 03/15/21 10:49 LRN [id number]) Wrist Goniometric Range of Motion Wrist Right Flexion Active (degrees) 60 Extension Active (degrees) 50 Ulnar Deviation Active (degrees) 28 Radial Deviation Active (degrees) 20 Left Flexion Active (degrees) 50 Extension Active (degrees) 58 Ulnar Deviation Active (degrees) 20 Radial Deviation Active (degrees) 25 Finger Goniometric Range of Motion Finger Right Fourth MCP Flexion Active (degrees) 90 PIP Flexion Active (degrees) 88 DIP Flexion Active (70-90 degrees) 40 L Tip to Distal Palmar Crease (0 cm) 4 H Left Fourth MCP Flexion Active (degrees) 100 PIP Flexion Active (degrees) 10 DIP Flexion Active (70-90 degrees) 32 L Tip to Distal Palmar Crease (0 cm) 4 H PT-OP-M Strength Start: 03/13/21 20:44 Freq: Status: Active Protocol: Document 03/15/21 09:46 LRN (Rec: 03/15/21 10:49 LRN [id number]) Wrist Strength Wrist Manual Muscle Testing Right Comments 5/5 Left Comments 5/5 Finger/Thumb Strength Finger Manual Muscle Testing Left Fifth Adduction 3- Fair- Abduction (fingers T1) 3- Fair- Left Fourth Adduction 2+ Poor+ Abduction (fingers T1) 2+ Poor+ Left Third Adduction 2+ Poor+ Abduction (fingers T1) 2+ Poor+ Left Second Flexion (fingers C8) 5 Normal Extension (thumb C8) 5 Normal Adduction 2+ Poor+ Abduction (fingers T1) 1 Trace Hand Nylon Hot Wire Cutter/Pinch Strength Hand Dominance Hand Dominance Right Hand Strength Left Nylon Hot Wire Cutter (lbs) 19.7 Comments Nylon Hot Wire Cutter with 3 trials (#): 22, 22 , 15 Right Nylon Hot Wire Cutter (lbs) 23 Comments Nylon Hot Wire Cutter with 3 trials (#): 28, 22, 20 PT-OP-Q Treatments Start: 03/13/21 20:44 Freq: Status: Active Protocol: Document 03/15/21 09:46 LRN (Rec: 03/15/21 10:49 LRN [id number]) Self-Care/Home Management Treatment Education Other Education Discussed results of evaluation, goals & plan of care, pt agreeable. Activities Self-Care/Home Management Activities Pt I/S in self care HEP: Finger AB/AD AROM and strengthening with opposite hand to assist. PT-OP-T Assessment and Plan Start: 03/13/21 20:44 Freq: Status: Active Protocol: Document 03/15/21 09:46 LRN (Rec: 03/15/21 10:49 LRN [id number]) Physical Therapy Assessment Rehab Potential Rehabilitation Potential Good Evaluation Complexity Number of Personal Factors/Comorbidities 1-2 Number of Body Systems Impaired 3 Clinical Presentation at Evaluation Evolving Impairments Impairments Pain,ROM,Strength Goals Three Impairment Pain in R hand. Short Term Goal (STG) Decrease pain with pt able to rag baler blow dryer or weedwacker, & leaf blower without an increase in pain. STG Duration 05/11/21 Packaging Technician Goal (LTG) Minimal to no pain with lifting of purse with R hand. LTG Duration 05/14/21 Two Impairment Locking of L ring finger limiting function for dressing Short Term Goal (STG) Pt will be educated in modification to dressing to improve her ability to don compression garments. STG Duration 05/11/21 Long-Term Goal (LTG) Limit locking of L ring finger with pt able to put on pressure garment without the L ring finger locking. LTG Duration 05/14/21 One Impairment Lacks appropriates self care HEP Short Term Goal (STG) Pt will have ROM ex's for fingers to prevent locking. STG Duration 03/30/21 Long-Term Goal (LTG) Independent self care HEP. LTG Duration 05/14/21 Assessment Summary Assessment Pt is a 80 yo female who presents with arthritis of the fingers with decrease in hand strength and mobility; primarily R hand MCP jts and L L ring finger locking into extension at PIP joint, limiting function with daily activities of dressing and personal hygiene (hair care). Pt will benefit from skilled physical therapy to improve hand strength and mobility and education in self care and modification in dressing and use of her L hand. Pt has very thin skin K-tape will not be used. Physical Therapy Plan Frequency and Duration Frequency of Treatment 2x/Week Plan of Care Start Date 03/15/21 Plan of Care End Date 05/14/21 Therapeutic Interventions Therapeutic Interventions Home Exercise Program,Joint Mobilizations,Manual Therapy, Patient/Caregiver Education, Self-Care/Home Management,Soft Tissue Mobilization, Therapeutic Exercises Modalities Cold Pack/Ice Massage,Paraffin Bath Other Referrals/Consults Referrals/Consults Recommended Possible need for hand splint, further evaluation needed. Next Visit Focus/Plan Next Note Type Treatment Note Next Visit Plan Review and issue handouts for finger ex's for AB/AD ROM and strengthening, STM of joint capsule of L 4th digit PIP joint. Assess thumb strength and start R > L hand rag baler & ext strengthening ex's. Finger intrinsic strengthening.
--- NOTE | 2021-03-15 17:14 | PT.OPPOC ---
Physical, Occupational & Speech Therapy At [facility] Current Diagnoses Primary osteoarthritis, right hand (03/15/21) Primary osteoarthritis, left hand (03/15/21) Muscle weakness (generalized) (03/15/21) Visit Care Team Role Provider Type Evelyne Jackson DO Attending Provider Physician Primary Care Provider Referring Provider Specialty: [facility] Address: [address] [place] [address], [address], [facility] Email: [email or web address] Plan Of Care PT-OP-T Assessment and Plan Start: 03/13/21 20:44 Freq: Status: Active Protocol: Document 03/15/21 09:46 LRN (Rec: 03/15/21 10:49 LRN [id number]) Physical Therapy Assessment Rehab Potential Rehabilitation Potential Good Evaluation Complexity Number of Personal Factors/Comorbidities 1-2 Number of Body Systems Impaired 3 Clinical Presentation at Evaluation Evolving Impairments Impairments Pain,ROM,Strength Goals Three Impairment Pain in R hand. Short Term Goal (STG) Decrease pain with pt able to billing rep blow dryer or weedwacker, & leaf blower without an increase in pain. STG Duration 05/11/21 Special Officer Goal (LTG) Minimal to no pain with lifting of purse with R hand. LTG Duration 05/14/21 Two Impairment Locking of L ring finger limiting function for dressing Short Term Goal (STG) Pt will be educated in modification to dressing to improve her ability to don compression garments. STG Duration 05/11/21 Special Officer Goal (LTG) Limit locking of L ring finger with pt able to put on pressure garment without the L ring finger locking. LTG Duration 05/14/21 One Impairment Lacks appropriates self care HEP Short Term Goal (STG) Pt will have ROM ex's for fingers to prevent locking. STG Duration 03/30/21 Prison Goal (LTG) Independent self care HEP. LTG Duration 05/14/21 Assessment Summary Assessment Pt is a 80 yo female who presents with arthritis of the fingers with decrease in hand strength and mobility; primarily R hand MCP jts and L L ring finger locking into extension at PIP joint, limiting function with daily activities of dressing and personal hygiene (hair care). Pt will benefit from skilled physical therapy to improve hand strength and mobility and education in self care and modification in dressing and use of her L hand. Pt has very thin skin K-tape will not be used. Physical Therapy Plan Frequency and Duration Frequency of Treatment 2x/Week Plan of Care Start Date 03/15/21 Plan of Care End Date 05/14/21 Therapeutic Interventions Therapeutic Interventions Home Exercise Program,Joint Mobilizations,Manual Therapy, Patient/Caregiver Education, Self-Care/Home Management,Soft Tissue Mobilization, Therapeutic Exercises Modalities Cold Pack/Ice Massage,Paraffin Bath Other Referrals/Consults Referrals/Consults Recommended Possible need for hand splint, further evaluation needed. Next Visit Focus/Plan Next Note Type Treatment Note Next Visit Plan Review and issue handouts for finger ex's for AB/AD ROM and strengthening, STM of joint capsule of L 4th digit PIP joint. Assess thumb strength and start R > L hand billing rep & ext strengthening ex's. Finger intrinsic strengthening. Plan of Care Dates Plan of Care Start Date 03/15/21 Plan of Care End Date 05/14/21 Electronically Signed by: Sonal Richmond, PT 03/15/21 0221 Please Sign and Return: I have reviewed this Plan of Care and certify that the skilled therapy services above are required to meet the patient?s needs. Physician Signature Date Printed Name and Credentials Clinical Instructor Signature Printed Name and Credentials
--- NOTE | 2021-03-29 16:27 | PT.OTN ---
Current Diagnoses Primary osteoarthritis, right hand (03/29/21) Primary osteoarthritis, left hand (03/29/21) Muscle weakness (generalized) (03/29/21) Physical Therapy Treatment Note PT-OP-A Visit Information Start: 03/13/21 20:44 Freq: Status: Active Protocol: Document 03/29/21 13:38 LRN (Rec: 03/29/21 14:29 LRN [id number]) Out-Patient Physical Therapy Visit Information Visit Information Visit Type Treatment Note Visit Start Time 13:38 Visit Stop Time 14:21 Total Visit Minutes 43 Visit Number 2 Evaluation Information Evaluation Date 03/15/21 Precautions Precautions Osteoporosis, Multiple CA - 2006 with radiation & surgery, 2007 - extension radiation, and 2014 - Clinical medication trial (in [place]), and 2020 had cyber knife treatment CA in R groin (targeted radiation) in R lymph node ( due to endometrial cancer) ending in early December 2020. Mild heart attack 06/2019, Cellulitis of LE's. 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 PT-OP-B Current Condition Start: 03/13/21 20:44 Freq: Status: Active Protocol: Document 03/15/21 09:46 LRN (Rec: 03/15/21 10:49 LRN [id number]) Current Condition History of Current Condition Onset Date 2018 with worsening and locking of fingers 03/2020 Current Complaints L hand ringer finger locks, and bilateral pain at knuckles . History of Current Condition L hand has a problem due to ring finger curls and locks and has to physically open it up. Mid 2019 L hand started locking in fingers Prior Treatments and Tests Tylenol. Other medications for pain that may be helping the hands. Treatment Goals Patient/Caregiver Goals Pt goal with therapy is to help limit locking of L ring finger and decrease pain in R hand with lifting, to be able to put on pressure garment without the L ring finger locking. Prior Functional Status Baseline Function- ADL's Independent Baseline Function- Mobility Independent Baseline Function- Gait Limps with gait and slow due to lymphedema in LE's Baseline Function- Other No locking of fingers. Works outside in yard. Current Functional Impairments (Reported) Functional Limitations- ADL's Pt R handed; therefore feels pain in posterior R hand with lifting purse. Decreased ability to lift due to R handed pain Decreased ability to dress ( compression clothes) due to locking or L ring finger. Personal Factors Other Personal Factors That May Effect Recent history of endometrial Therapy/Recovery cancer with very recent cyber knife treatment. Spouse needs hip replacement and recently diagnosed with anal cancer; therefore pt is trying to help spouse. PT-OP-C Subjective Start: 03/13/21 20:44 Freq: Status: Active Protocol: Document 03/29/21 13:38 LRN (Rec: 03/29/21 14:29 LRN [id number]) OP-PT Subjective Patient Comments Patient Comments Pain in R hand is gone. PT-OP-J Posture/Palpation/Skin Start: 03/13/21 20:44 Freq: Status: Active Protocol: Document 03/15/21 09:46 LRN (Rec: 03/15/21 10:49 LRN [id number]) Posture Evaluation Position Sitting Head/C-Spine Posture Forward Head L-Spine Posture Decreased Lordosis Comments Posture Comments Deformity of fingers consistent with arthritis. Atrophy of intrinsic muscles of the hands. PT-OP-K Range of Motion Start: 03/13/21 20:44 Freq: Status: Active Protocol: Document 03/15/21 09:46 LRN (Rec: 03/15/21 10:49 LRN [id number]) Wrist Goniometric Range of Motion Wrist Right Flexion Active (degrees) 60 Extension Active (degrees) 50 Ulnar Deviation Active (degrees) 28 Radial Deviation Active (degrees) 20 Left Flexion Active (degrees) 50 Extension Active (degrees) 58 Ulnar Deviation Active (degrees) 20 Radial Deviation Active (degrees) 25 Finger Goniometric Range of Motion Finger Right Fourth MCP Flexion Active (degrees) 90 PIP Flexion Active (degrees) 88 DIP Flexion Active (70-90 degrees) 40 L Tip to Distal Palmar Crease (0 cm) 4 H Left Fourth MCP Flexion Active (degrees) 100 PIP Flexion Active (degrees) 10 DIP Flexion Active (70-90 degrees) 32 L Tip to Distal Palmar Crease (0 cm) 4 H PT-OP-M Strength Start: 03/13/21 20:44 Freq: Status: Active Protocol: Document 03/29/21 13:38 LRN (Rec: 03/29/21 16:26 LRN [id number]) Finger/Thumb Strength Finger Manual Muscle Testing Left Thumb Flexion (fingers C8) 5 Normal Extension (thumb C8) 4 Good Adduction 5 Normal Abduction (fingers T1) 5 Normal PT-OP-Q Treatments Start: 03/13/21 20:44 Freq: Status: Active Protocol: Document 03/29/21 13:38 LRN (Rec: 03/29/21 14:29 LRN [id number]) Therapeutic Exercises Sitting Exercises Finger Ext at DIP joint Sitting Exercise Name R hand digits 3-5. Reps/Minutes 10x each Comments Extensive training to prevent further swan neck deformity at ring finger. Finger ext taps Sitting Exercise Name R hand digits 2-5. Reps/Minutes 10x each Comments Extra time for training Finger AB/AD Sitting Exercise Name R hand digits 2-5. Reps/Minutes 10x each Comments Much time taken for R middle finger AD,trying diff modifications to asst Self-Care/Home Management Treatment Education Patient Education Home Exercise Program Other Education Educated pt in need for contrast bath to decrease swelling at ring finger PIP joint and area between MCP & PIP jts. Activities Self-Care/Home Management Activities HEP issued & reviewed: finger ex's (AB/AD, Ext, DIP ext), and Contrast Bath handouts. PT-OP-T Assessment and Plan Start: 03/13/21 20:44 Freq: Status: Active Protocol: Document 03/29/21 13:38 LRN (Rec: 03/29/21 14:29 LRN [id number]) Physical Therapy Assessment Goals Three Impairment Pain in R hand. Short Term Goal (STG) Decrease pain with pt able to cook taco blow dryer or weedwacker, & leaf blower without an increase in pain. STG Duration 05/11/21 (03/29/21: MET GOAL) Senior Sous Chef Goal (LTG) Minimal to no pain with lifting of purse with R hand. LTG Duration 05/14/21 (03/29/21: MET GOAL) Two Impairment Locking of L ring finger limiting function for dressing Short Term Goal (STG) Pt will be educated in modification to dressing to improve her ability to don compression garments. STG Duration 05/11/21 Senior Sous Chef Goal (LTG) Limit locking of L ring finger with pt able to put on pressure garment without the L ring finger locking. LTG Duration 05/14/21 One Impairment Lacks appropriates self care HEP Short Term Goal (STG) Pt will have ROM ex's for fingers to prevent locking. (03/29/21: HEP of Active finger AB/AD, MCP flexion ( table top) and DIP finger flex . STG Duration 03/30/21 (03/29/21: Progressed ) Senior Sous Chef Goal (LTG) Independent self care HEP. LTG Duration 05/14/21 Progress Towards Goals Progress Comments Goal #3 STG & LTG MET. Progressed HEP. Assessment Summary Assessment Pt noting R hand has returned to prior level of function. Her L ring finger continues to lock, appears to release with ext at DIP joint. Feels as if she is locking up at lateral side of PIP joint of ring finger. L thumb strength is normal except mild weakness of thumb extension (4 /5). Physical Therapy Plan Frequency and Duration Frequency of Treatment 2x/Week Plan of Care Start Date 03/15/21 Plan of Care End Date 05/14/21 Next Visit Focus/Plan Next Note Type Treatment Note Next Visit Plan Assess response to contrast bath to L ring finger edema. Review finger ex's for AB/AD ROM, and issue handouts for finger ex's for strengthening, STM of joint capsule of L 4th digit PIP joint. Start R > L hand cook taco & ext strengthening ex's. Start MFR of L ring finger PIP/DIP joint. Finger intrinsic strengthening.
--- NOTE | 2021-04-03 16:22 | PT.OTN ---
Current Diagnoses Primary osteoarthritis, right hand (04/03/21) Primary osteoarthritis, left hand (04/03/21) Muscle weakness (generalized) (04/03/21) Physical Therapy Treatment Note PT-OP-A Visit Information Start: 03/13/21 20:44 Freq: Status: Active Protocol: Document 04/03/21 13:32 LRN (Rec: 04/03/21 14:16 LRN [id number]) Out-Patient Physical Therapy Visit Information Visit Information Visit Type Treatment Note Visit Start Time 13:32 Visit Stop Time 14:12 Total Visit Minutes 40 Visit Number 3 Evaluation Information Evaluation Date 03/15/21 Precautions Precautions Osteoporosis, Multiple CA - 2006 with radiation & surgery, 2007 - extension radiation, and 2014 - Clinical medication trial (in [place]), and 2020 had cyber knife treatment CA in R groin (targeted radiation) in R lymph node ( due to endometrial cancer) ending in early December 2020. Mild heart attack 06/2019, Cellulitis of LE's. 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 PT-OP-B Current Condition Start: 03/13/21 20:44 Freq: Status: Active Protocol: Document 03/15/21 09:46 LRN (Rec: 03/15/21 10:49 LRN [id number]) Current Condition History of Current Condition Onset Date 2018 with worsening and locking of fingers 03/2020 Current Complaints L hand ringer finger locks, and bilateral pain at knuckles . History of Current Condition L hand has a problem due to ring finger curls and locks and has to physically open it up. Mid 2019 L hand started locking in fingers Prior Treatments and Tests Tylenol. Other medications for pain that may be helping the hands. Treatment Goals Patient/Caregiver Goals Pt goal with therapy is to help limit locking of L ring finger and decrease pain in R hand with lifting, to be able to put on pressure garment without the L ring finger locking. Prior Functional Status Baseline Function- ADL's Independent Baseline Function- Mobility Independent Baseline Function- Gait Limps with gait and slow due to lymphedema in LE's Baseline Function- Other No locking of fingers. Works outside in yard. Current Functional Impairments (Reported) Functional Limitations- ADL's Pt R handed; therefore feels pain in posterior R hand with lifting purse. Decreased ability to lift due to R handed pain Decreased ability to dress ( compression clothes) due to locking or L ring finger. Personal Factors Other Personal Factors That May Effect Recent history of endometrial Therapy/Recovery cancer with very recent cyber knife treatment. Spouse needs hip replacement and recently diagnosed with anal cancer; therefore pt is trying to help spouse. PT-OP-C Subjective Start: 03/13/21 20:44 Freq: Status: Active Protocol: Document 04/03/21 13:32 LRN (Rec: 04/03/21 14:16 LRN [id number]) OP-PT Subjective Patient Comments Patient Comments States the L hand 4th finger seems to want to stick more. Did contrast bath and noted no change in hand function or triggering of finger. PT-OP-J Posture/Palpation/Skin Start: 03/13/21 20:44 Freq: Status: Active Protocol: Document 03/15/21 09:46 LRN (Rec: 03/15/21 10:49 LRN [id number]) Posture Evaluation Position Sitting Head/C-Spine Posture Forward Head L-Spine Posture Decreased Lordosis Comments Posture Comments Deformity of fingers consistent with arthritis. Atrophy of intrinsic muscles of the hands. PT-OP-K Range of Motion Start: 03/13/21 20:44 Freq: Status: Active Protocol: Document 03/15/21 09:46 LRN (Rec: 03/15/21 10:49 LRN [id number]) Wrist Goniometric Range of Motion Wrist Right Flexion Active (degrees) 60 Extension Active (degrees) 50 Ulnar Deviation Active (degrees) 28 Radial Deviation Active (degrees) 20 Left Flexion Active (degrees) 50 Extension Active (degrees) 58 Ulnar Deviation Active (degrees) 20 Radial Deviation Active (degrees) 25 Finger Goniometric Range of Motion Finger Right Fourth MCP Flexion Active (degrees) 90 PIP Flexion Active (degrees) 88 DIP Flexion Active (70-90 degrees) 40 L Tip to Distal Palmar Crease (0 cm) 4 H Left Fourth MCP Flexion Active (degrees) 100 PIP Flexion Active (degrees) 10 DIP Flexion Active (70-90 degrees) 32 L Tip to Distal Palmar Crease (0 cm) 4 H PT-OP-M Strength Start: 03/13/21 20:44 Freq: Status: Active Protocol: Document 03/29/21 13:38 LRN (Rec: 06/10/21 16:26 LRN [id number]) Finger/Thumb Strength Finger Manual Muscle Testing Left Thumb Flexion (fingers C8) 5 Normal Extension (thumb C8) 4 Good Adduction 5 Normal Abduction (fingers T1) 5 Normal PT-OP-Q Treatments Start: 03/13/21 20:44 Freq: Status: Active Protocol: Document 04/03/21 13:32 LRN (Rec: 04/03/21 14:16 LRN [id number]) Therapeutic Exercises Sitting Exercises MCP ext Sitting Exercise Name Table top MCP finger ext strengthening Side left Equipment Used Rubber band Harini finger AD Sitting Exercise Name AD of fingers 2-3 Side left Finger Ext at DIP joint Sitting Exercise Name L hand digits 3-5. Reps/Minutes 10x each Comments Extensive training to prevent further swan neck deformity at ring finger. Finger ext taps Sitting Exercise Name L hand digits 2-5. Side left Reps/Minutes 10x each Comments Extra time for training Finger AB/AD Sitting Exercise Name L hand digits 2-5. Side left Reps/Minutes 10x each Comments Much time taken for R middle finger AD,trying diff modifications to asst Manual Therapy Treatment Manual Techniques MWM Type Mob with movement for L hand, 4th digit, flex/ext Body Location L hand ring finger Body Position Sitting Reps/Duration 8' Comments Holliday to Dorsal and mildly lateral glide of distal 4th Metacarpel long bone during flex/ext. PT-OP-T Assessment and Plan Start: 03/13/21 20:44 Freq: Status: Active Protocol: Document 04/03/21 13:32 LRN (Rec: 04/03/21 14:16 LRN [id number]) Physical Therapy Assessment Goals Three Impairment Pain in R hand. Short Term Goal (STG) Decrease pain with pt able to food and beverage controller blow dryer or weedwacker, & leaf blower without an increase in pain. STG Duration 05/11/21 (03/29/21: MET GOAL) Frame Feeder Goal (LTG) Minimal to no pain with lifting of purse with R hand. LTG Duration 05/14/21 (03/29/21: MET GOAL) Two Impairment Locking of L ring finger limiting function for dressing Short Term Goal (STG) Pt will be educated in modification to dressing to improve her ability to don compression garments. STG Duration 05/11/21 (04/03/21: MET GOAL) Frame Feeder Goal (LTG) Limit locking of L ring finger with pt able to put on pressure garment without the L ring finger locking. LTG Duration 05/14/21 (04/03/21: NOT MET) One Impairment Lacks appropriates self care HEP Short Term Goal (STG) Pt will have ROM ex's for fingers to prevent locking. (04/03/21: HEP of Active finger AB/AD, MCP flexion ( table top) and extension, and DIP finger flex. STG Duration 03/30/21 (04/03/21: MET GOAL) Frame Feeder Goal (LTG) Independent self care HEP. LTG Duration 05/14/21 (04/03/21: MET GOAL) Assessment Summary Assessment Pt did not note any difference in finger movement or locking of L hand 4th digit after contrast bath treatments at home or with ex's. She feels the locking may be getting worse. Merly complains mostly of the trigger of the L ring finger while putting on her compression stockings and doesn't feel adaptive equipment would be helpful in avoiding triggering of the finger and doesn't appear receptive to try. The ex's and methods to reduce inflammation at the MCP joint; therefore other medical treatments might need to be considered. See recommendation below. The pt is being referred back to you for further recommendations and medical care. Physical Therapy Plan Frequency and Duration Frequency of Treatment 2x/Week Plan of Care Start Date 03/15/21 Plan of Care End Date 05/14/21 Other Referrals/Consults Referrals/Consults Recommended Recommend pt be referred to physician hand specialist. Discharge Physical Therapy Discharge Reasons Plateau in Progress Discharge Comments Pt hasn't made a significant change in the locking of her L hand, ring finger with ex's and self care program; therefore other medical treatment may be needed ( cortisone injection, splinting of finger). Pt will need to see physician assessment for other medical treatments. Thank you for your referral.
== END 2021-04-04 07:44 | disposition home or self-care (01) ==
LOC: PHYS 13:30
PROVIDERS: PCP Family Medicine; Referring Provider Family Medicine; Visit Provider Family Medicine
DX: M19.041 Primary osteoarthritis, right hand (principal); M19.042 Primary osteoarthritis, left hand; M62.81 Muscle weakness (generalized)
CPT/HCPCS: 97110; 97140; 97162; 97535

== ENCOUNTER → 2021-04-17 13:29 | Outpatient (CLI) | payer MEDICARE, OTHER, SELFPAY ==
[2019-06-21 23:17] VITALS: BMI 27.4
--- NOTE | 2021-04-17 13:32 | DI.MG.S_ITS ---
UNILATERAL LEFT DIGITAL DIAGNOSTIC MAMMOGRAM 3D/2D WITH ADDITIONAL VIEWS: 04/17/2021 CLINICAL: Additional evaluation requested from prior study. Comparison is made to exams dated: 03/14/2021 mammogram, 09/01/2018 mammogram [facility], and 06/13/2017 mammogram - [facility]. The tissue of left breast is heterogeneously dense. This may lower the sensitivity of mammography. The previously questioned asymmetry in the left breast middle depth lateral region seen on the craniocaudal view only is no longer identified. No other significant masses or calcifications are seen in the breast. IMPRESSION: INCOMPLETE: NEEDS ADDITIONAL IMAGING EVALUATION The previously questioned asymmetry in the left breast is no longer identified. This likely represented superimposition of normal fibroglandular tissue on the prior study. An ultrasound will be performed to further excude an underlying mass. This exam was interpreted at Station ID: [id number]. NOTE: For mammograms, a report in lay terms will be sent to the patient. Approximately 15% of breast malignancies will not be visualized mammographically. In the management of a palpable breast mass, a negative mammogram must not discourage biopsy of a clinically suspicious lesion. Electronically Signed By: Kieran Mccrary M.D. jr/:04/17/2021 14:41:24 Entry: esequiel - 04/18/2021 08:33:36 copy to: RYLEY SHEIKH ACR BI-RADS Category 0: Incomplete [id number]
--- NOTE | 2021-04-17 13:32 | DI.US.S_ITS ---
LIMITED ULTRASOUND OF LEFT BREAST: 04/17/2021 CLINICAL: Asymmetry left breast. Comparison is made to exams dated: 04/17/2021 mammogram, 03/14/2021 mammogram, 09/01/2018 mammogram - [facility], and 06/13/2017 mammogram - [facility]. Color flow and real-time ultrasound of the left breast 2-4 o'clock region were performed. Campbell scale images of the real-time examination were reviewed. There is no sonographic correlate for the previously questioned left breast asymmetry at 3 o'clock middle depth. No significant abnormalities were seen sonographically in the left breast. IMPRESSION: NEGATIVE There is no sonographic evidence of malignancy. Return to annual mammogram screening schedule is recommended. This exam was interpreted at Station ID: [id number]. Electronically Signed By: Kieran Mccrary M.D. jr/:04/17/2021 14:45:22 copy to: RYLEY SHEIKH letter sent: Normal Exam Ultrasound BI-RADS: 1 Negative
== END ==
PROVIDERS: PCP Family Medicine; Referring Provider Obstetrics & Gynecology Gynecologic Oncology; Visit Provider Obstetrics & Gynecology Gynecologic Oncology
DX: R92.8 Other abnormal and inconclusive findings on diagnostic imaging of breast (principal); N64.89 Other specified disorders of breast
CPT/HCPCS: 76642; 77065; G0279

== ENCOUNTER → 2021-07-03 09:48 | Outpatient (CLI) | payer MEDICARE, OTHER, SELFPAY ==
[2019-06-21 23:17] VITALS: BMI 27.4
[2021-07-03 10:22] LABS: Add Manual Diff / Slide Review NO; Basophils Absolute Auto 0 /uL (0-100); Eosinophils Absolute Auto 200 /uL (0-450); Hemoglobin 11.8 g/dL (12.0-16.0); Lymphocytes Absolute Auto 1300 /uL (1100-4500); Lymphocytes Percent Auto 34.8 % (25-40); Mean Corpuscular HGB Conc 33.8 % (30-36); Mean Corpuscular Hemoglobin 30.1 PG (26-34); Mean Corpuscular Volume 88.9 fL (80-100); Monocytes Absolute Auto 400 /uL (0-900); Monocytes Percent Auto 9.5 % (3-14); Neutrophils Absolute Auto 1900 /uL (1500-7000); Neutrophils Percent Auto 50.7 % (50-75); Platelet Count 250 X10^3/uL (150-400); Red Blood Cell Count 3.93 X10^6/uL (4.0-5.2); Red Cell Distribution Width 13.5 % (11.6-14.8); White Blood Cell Count 3.7 X10^3/uL (4.5-11.0)
[2021-07-03 10:42] LABS: Cholesterol 144 mg/dL (140-199); HDL Cholesterol 59 mg/dL (40-60); LDL Cholesterol Calculated 69 mg/dL (<100); Triglycerides 82 mg/dL (35-150)
[2021-07-03 10:53] LABS: Alanine Aminotransferase 7 IU/L (<35); Albumin 3.4 g/dL (3.5-5.0); Albumin Globulin Ratio 1.5 (1.0-2.8); Alkaline Phosphatase 42 U/L (38-126); Aspartate Aminotransferase 15 IU/L (14-36); Bilirubin Total 0.2 mg/dL (0.2-1.3); Blood Urea Nitrogen 15 mg/dL (7-17); Calcium 8.8 mg/dL (8.4-10.2); Carbon Dioxide 29 mmol/L (22-32); Chloride 103 mmol/L (98-107); Estimated Glomerular Filt Rate 53.6 mL/min (>60); Globulin 2.2 g/dL (1.7-4.1); Glucose 87 mg/dL (80-110); HEMOLYSIS < 15 (0-50); Potassium 3.9 mmol/L (3.4-5.1); Sodium 136 mmol/L (137-145); Total Protein 5.6 g/dL (6.3-8.2)
[2021-07-03 11:24] LABS: Cancer Antigen 125 12.9 U/mL (0-35)
== END ==
PROVIDERS: PCP Family Medicine; Referring Provider Obstetrics & Gynecology Gynecologic Oncology; Visit Provider Obstetrics & Gynecology Gynecologic Oncology
DX: E78.5 Hyperlipidemia, unspecified (principal); C54.1 Malignant neoplasm of endometrium
CPT/HCPCS: 36415; 80053; 80061; 85025; 86304

== ENCOUNTER → 2021-08-14 15:19 | Outpatient (CLI) | payer MEDICARE, OTHER, SELFPAY ==
[2019-06-21 23:17] VITALS: BMI 27.4
[2021-08-14 15:51] LABS: Alanine Aminotransferase 9 IU/L (<35); Albumin 3.6 g/dL (3.5-5.0); Albumin Globulin Ratio 1.4 (1.0-2.8); Alkaline Phosphatase 47 U/L (38-126); Aspartate Aminotransferase 17 IU/L (14-36); Bilirubin Total 0.2 mg/dL (0.2-1.3); Blood Urea Nitrogen 18 mg/dL (7-17); Calcium 9.5 mg/dL (8.4-10.2); Carbon Dioxide 30 mmol/L (22-32); Chloride 101 mmol/L (98-107); Estimated Glomerular Filt Rate 43.3 mL/min (>60); Globulin 2.5 g/dL (1.7-4.1); Glucose 85 mg/dL (80-110); HEMOLYSIS < 15 (0-50); Potassium 3.9 mmol/L (3.4-5.1); Sodium 136 mmol/L (137-145); Total Protein 6.1 g/dL (6.3-8.2)
== END ==
PROVIDERS: PCP Family Medicine; Referring Provider Family Medicine; Visit Provider Family Medicine
DX: M81.0 Age-related osteoporosis without current pathological fracture (principal)
CPT/HCPCS: 36415; 80053

== ENCOUNTER → 2022-01-30 12:58 | Outpatient (CLI) | payer MEDICARE, OTHER, SELFPAY ==
[2019-06-21 23:17] VITALS: BMI 27.4
[2022-01-30 13:27] LABS: Add Manual Diff / Slide Review NO; Basophils Absolute Auto 0 /uL (0-100); Basophils Percent Auto 1.1 % (0-2); Eosinophils Absolute Auto 100 /uL (0-450); Eosinophils Percent Auto 2.3 % (2-4); Hemoglobin 12.5 g/dL (12.0-16.0); Lymphocytes Absolute Auto 1400 /uL (1100-4500); Lymphocytes Percent Auto 38.9 % (25-40); Mean Corpuscular HGB Conc 33.7 % (30-36); Mean Corpuscular Hemoglobin 29.4 PG (26-34); Mean Corpuscular Volume 87.1 fL (80-100); Monocytes Absolute Auto 400 /uL (0-900); Monocytes Percent Auto 11.2 % (3-14); Neutrophils Absolute Auto 1700 /uL (1500-7000); Neutrophils Percent Auto 46.5 % (50-75); Platelet Count 244 X10^3/uL (150-400); Red Blood Cell Count 4.25 X10^6/uL (4.0-5.2); Red Cell Distribution Width 13.7 % (11.6-14.8); White Blood Cell Count 3.6 X10^3/uL (4.5-11.0)
[2022-01-30 14:01] LABS: Alanine Aminotransferase 9 IU/L (<35); Albumin 3.5 g/dL (3.5-5.0); Albumin Globulin Ratio 1.3 (1.0-2.8); Alkaline Phosphatase 54 U/L (38-126); Aspartate Aminotransferase 19 IU/L (14-36); Bilirubin Total 0.2 mg/dL (0.2-1.3); Blood Urea Nitrogen 13 mg/dL (7-17); Calcium 8.7 mg/dL (8.4-10.2); Carbon Dioxide 38 mmol/L (22-32); Chloride 99 mmol/L (98-107); Estimated Glomerular Filt Rate 52 mL/min (>60); Globulin 2.6 g/dL (1.7-4.1); Glucose 91 mg/dL (80-110); HEMOLYSIS < 15 (0-50); Potassium 4.1 mmol/L (3.4-5.1); Sodium 136 mmol/L (137-145); Total Protein 6.1 g/dL (6.3-8.2)
[2022-01-30 14:31] LABS: Cancer Antigen 125 10.5 U/mL (0-35)
== END ==
PROVIDERS: PCP Nurse Practitioner; Referring Provider Obstetrics & Gynecology Gynecologic Oncology; Visit Provider Obstetrics & Gynecology Gynecologic Oncology
DX: C54.1 Malignant neoplasm of endometrium (principal)
CPT/HCPCS: 36415; 80053; 85025; 86304

== ENCOUNTER → 2022-07-12 08:22 | Outpatient (CLI) | payer MEDICARE, OTHER, SELFPAY ==
[2022-05-27 12:44] VITALS: BMI 27.4
[2022-07-12 12:58] LABS: Clostridium Difficile Tox PCR Negative for C. diff (Negative)
== END ==
PROVIDERS: PCP Nurse Practitioner; Referring Provider Nurse Practitioner; Visit Provider Nurse Practitioner
DX: R19.7 Diarrhea, unspecified (principal)
CPT/HCPCS: 87045; 87177; 87493; 87899

== ENCOUNTER → 2022-07-16 09:40 | Outpatient (CLI) | payer MEDICARE, OTHER, SELFPAY ==
[2022-05-27 12:44] VITALS: BMI 27.4
[2022-07-16 11:07] LABS: Cholesterol 241 mg/dL (140-199); HDL Cholesterol 83 mg/dL (40-60); LDL Cholesterol Calculated 142 mg/dL (<100); Triglycerides 79 mg/dL (35-150)
[2022-07-16 11:58] LABS: Hep C Virus Ab w/Reflex Quant NEGATIVE s/c (NEGATIVE)
== END ==
PROVIDERS: PCP Nurse Practitioner; Referring Provider Nurse Practitioner; Visit Provider Nurse Practitioner
DX: E78.00 Pure hypercholesterolemia, unspecified (principal); Z79.899 Other long term (current) drug therapy; Z11.59 Encounter for screening for other viral diseases
CPT/HCPCS: 36415; 80061; 86803

== ENCOUNTER → 2022-07-18 14:22 | Outpatient (CLI) | payer MEDICARE, OTHER, SELFPAY ==
[2022-05-27 12:44] VITALS: BMI 27.4
--- NOTE | 2022-07-18 14:26 | DI.MG.S_ITS ---
BILATERAL DIGITAL SCREENING MAMMOGRAM 3D/2D WITH CAD: 07/18/2022 CLINICAL: Routine screening. Family history of breast cancer. Comparison is made to exams dated: 04/17/2021 mammogram, 03/14/2021 mammogram, and 09/01/2018 mammogram - [facility]. Both breasts are heterogeneously dense, which may obscure small masses (category c / 51-75% glandular tissue). Current study was also evaluated with a Computer Aided Detection (CAD) system. No significant masses, calcifications, or other findings are seen in either breast. There has been no significant interval change. IMPRESSION: NEGATIVE There is no mammographic evidence of malignancy. A 1 year screening mammogram is recommended. Based on the Tyrer Cuzick model (a risk assessment model) the patient's lifetime risk is 2.9% and her 10 year risk is 0.0%. According to the ACR, ACS, and NCCN guidelines, an annual breast MRI exam along with mammogram is recommended if the patient's lifetime risk is 20% or greater. This exam was interpreted at Station ID: [id number]. NOTE: For mammograms, a report in lay terms will be sent to the patient. Approximately 15% of breast malignancies will not be visualized mammographically. In the management of a palpable breast mass, a negative mammogram must not discourage biopsy of a clinically suspicious lesion. Electronically Signed By: Destin canela/messi:07/18/2022 15:09:09 copy to: RYLEY SHEIKH letter sent: Normal Exam ACR BI-RADS Category 1: Negative [id number]
== END ==
PROVIDERS: PCP Nurse Practitioner; Referring Provider Nurse Practitioner; Visit Provider Nurse Practitioner
DX: M81.0 Age-related osteoporosis without current pathological fracture (principal); Z12.31 Encounter for screening mammogram for malignant neoplasm of breast; Z80.3 Family history of malignant neoplasm of breast; Z78.0 Asymptomatic menopausal state; Z90.710 Acquired absence of both cervix and uterus
CPT/HCPCS: 77063; 77067; 77080

== ENCOUNTER → 2022-08-01 14:46 | Outpatient (CLI) | payer MEDICARE, OTHER, SELFPAY ==
[2022-05-27 12:44] VITALS: BMI 27.4
[2022-08-01 15:57] LABS: Add Manual Diff / Slide Review NO; Basophils Absolute Auto 0 /uL (0-100); Basophils Percent Auto 1.2 % (0-2); Eosinophils Absolute Auto 100 /uL (0-450); Eosinophils Percent Auto 1.7 % (2-4); Hematocrit 35.6 % (36-46); Hemoglobin 11.9 g/dL (12.0-16.0); Lymphocytes Absolute Auto 1200 /uL (1100-4500); Lymphocytes Percent Auto 36.1 % (25-40); Mean Corpuscular HGB Conc 33.3 % (30-36); Mean Corpuscular Hemoglobin 29.7 PG (26-34); Mean Corpuscular Volume 89.2 fL (80-100); Monocytes Absolute Auto 300 /uL (0-900); Monocytes Percent Auto 7.9 % (3-14); Neutrophils Absolute Auto 1800 /uL (1500-7000); Neutrophils Percent Auto 53.1 % (50-75); Platelet Count 223 X10^3/uL (150-400); Red Cell Distribution Width 13.8 % (11.6-14.8); White Blood Cell Count 3.3 X10^3/uL (4.5-11.0)
[2022-08-01 16:08] LABS: Alanine Aminotransferase 8 IU/L (<35); Albumin 3.2 g/dL (3.5-5.0); Albumin Globulin Ratio 1.3 (1.0-2.8); Alkaline Phosphatase 40 U/L (38-126); Aspartate Aminotransferase 18 IU/L (14-36); BUN Creatinine Ratio 11.5 (6-22); Bilirubin Total 0.2 mg/dL (0.2-1.3); Blood Urea Nitrogen 10 mg/dL (7-17); Calcium 8.6 mg/dL (8.4-10.2); Carbon Dioxide 35 mmol/L (22-32); Chloride 100 mmol/L (98-107); Estimated Glomerular Filt Rate > 60 mL/min (>60); Globulin 2.4 g/dL (1.7-4.1); Glucose 113 mg/dL (80-110); HEMOLYSIS < 15 (0-50); Potassium 3.5 mmol/L (3.4-5.1); Sodium 138 mmol/L (137-145); Total Protein 5.6 g/dL (6.3-8.2)
[2022-08-01 16:25] LABS: Free T3, Triiodothyronine Free 2.85 pg/mL (2.77-5.27); Free T4, Direct Thyroxine 1.04 ng/dL (0.78-2.19)
[2022-08-01 16:39] LABS: Thyroid Stimulating Hormone 1.86 uIU/mL (0.47-4.68)
[2022-08-01 18:11] LABS: Creatinine Urine Random 107.3 mg/dL
[2022-08-01 18:16] LABS: Microalbumi Creatinin Ratio Ur 15.8 ug/mg CR (<30); Microalbumin Urine Random 1.7 mg/dL (0-1.6)
== END ==
PROVIDERS: PCP Nurse Practitioner; Referring Provider Nurse Practitioner; Visit Provider Nurse Practitioner
DX: R15.9 Full incontinence of feces (principal); R53.83 Other fatigue; R19.7 Diarrhea, unspecified
CPT/HCPCS: 36415; 80053; 82043; 82570; 84439; 84443; 84481; 85025

== ENCOUNTER → 2022-09-11 11:49 | Outpatient (CLI) | payer MEDICARE, OTHER, SELFPAY ==
[2022-05-27 12:44] VITALS: BMI 27.4
[2022-09-11 13:19] LABS: BUN Creatinine Ratio 14.9 (6-22); Blood Urea Nitrogen 13 mg/dL (7-17); Calcium 9.2 mg/dL (8.4-10.2); Carbon Dioxide 34 mmol/L (22-32); Chloride 96 mmol/L (98-107); Estimated Glomerular Filt Rate > 60 mL/min (>60); Glucose 107 mg/dL (80-110); HEMOLYSIS < 15 (0-50); Potassium 4.1 mmol/L (3.4-5.1); Sodium 136 mmol/L (137-145)
== END ==
PROVIDERS: PCP Nurse Practitioner; Referring Provider Nurse Practitioner; Visit Provider Nurse Practitioner
DX: M81.0 Age-related osteoporosis without current pathological fracture (principal)
CPT/HCPCS: 36415; 80048

== ENCOUNTER → 2023-01-01 10:38 | Outpatient (CLI) | payer MEDICARE, OTHER, SELFPAY ==
[2022-05-27 12:44] VITALS: BMI 27.4
[2023-01-01 11:31] LABS: Alanine Aminotransferase 10 IU/L (<35); Albumin 3.3 g/dL (3.5-5.0); Albumin Globulin Ratio 1.5 (1.0-2.8); Alkaline Phosphatase 45 U/L (38-126); Aspartate Aminotransferase 17 IU/L (14-36); BUN Creatinine Ratio 21.2 (6-22); Bilirubin Total 0.2 mg/dL (0.2-1.3); Blood Urea Nitrogen 21 mg/dL (7-17); Calcium 8.2 mg/dL (8.4-10.2); Carbon Dioxide 35 mmol/L (22-32); Chloride 98 mmol/L (98-107); Cholesterol 242 mg/dL (140-199); Estimated Glomerular Filt Rate 58 mL/min (>60); Globulin 2.2 g/dL (1.7-4.1); Glucose 98 mg/dL (80-110); HEMOLYSIS < 15 (0-50); Potassium 3.8 mmol/L (3.4-5.1); Sodium 135 mmol/L (137-145); Total Protein 5.5 g/dL (6.3-8.2); Triglycerides 68 mg/dL (35-150)
[2023-01-01 11:42] LABS: HDL Cholesterol 124 mg/dL (40-60); LDL Cholesterol Calculated 104 mg/dL (<100)
== END ==
PROVIDERS: PCP Nurse Practitioner; Referring Provider Nurse Practitioner; Visit Provider Nurse Practitioner
DX: E78.5 Hyperlipidemia, unspecified (principal); I10 Essential (primary) hypertension
CPT/HCPCS: 36415; 80053; 80061

== ENCOUNTER 2023-02-26 21:01 | Observation (INO) | payer MEDICARE, OTHER, SELFPAY ==
[2022-05-27 12:44] VITALS: BMI 27.4
[2023-02-26] VITALS (7 sets, daily range): BP systolic 101–153; BP diastolic 55–71; PULSE 84–98; RESP 20–29; TEMP 36.8; O2SAT 92–95; BMI 22.6
--- NOTE | 2023-02-26 21:14 | DI.RAD.S_ITS ---
PROCEDURE: XR CHEST 1V INDICATIONS: sepsis TECHNIQUE: One view of the chest was acquired. COMPARISON: [facility], CR, XR CHEST 1 VIEW, 06/23/2019, 20:15. [facility], CR, XR CHEST 2V, 06/23/2019, 8:53. FINDINGS: Surgical changes and devices: There is a right internal jugular Port-A-Cath redemonstrated. Lungs and pleura: Lungs are clear. No pleural effusions or pneumothorax. Mediastinum: Mediastinal contours appear normal. Heart size is normal. Bones and chest wall: No suspicious bony lesions. Overlying soft tissues appear unremarkable. IMPRESSION: 1. No acute cardiopulmonary disease. Dictated by: Micheal Singletary M.D. on 02/26/2023 at 22:42 Approved by: Micheal Singletary M.D. on 02/26/2023 at 22:43
[2023-02-26] MEDS: SODIUM CHLORIDE 0.9% 1,000 ML 1000 ML IV (21:33)
[2023-02-26 21:37] LABS: Add Manual Diff / Slide Review NO; Basophils Absolute Auto 0 /uL (0-100); Basophils Percent Auto 0.4 % (0-2); Eosinophils Absolute Auto 0 /uL (0-450); Hematocrit 37.6 % (36-46); Hemoglobin 12.6 g/dL (12.0-16.0); Lymphocytes Absolute Auto 700 /uL (1100-4500); Lymphocytes Percent Auto 7.6 % (25-40); Mean Corpuscular HGB Conc 33.6 % (30-36); Mean Corpuscular Hemoglobin 30.2 PG (26-34); Monocytes Absolute Auto 200 /uL (0-900); Monocytes Percent Auto 2.7 % (3-14); Neutrophils Absolute Auto 8100 /uL (1500-7000); Neutrophils Percent Auto 89.3 % (50-75); Platelet Count 217 X10^3/uL (150-400); Red Blood Cell Count 4.18 X10^6/uL (4.0-5.2); Red Cell Distribution Width 14.1 % (11.6-14.8); White Blood Cell Count 9.1 X10^3/uL (4.5-11.0)
[2023-02-26 21:46] LABS: Alanine Aminotransferase 32 IU/L (<35); Albumin 3.9 g/dL (3.5-5.0); Albumin Globulin Ratio 1.3 (1.0-2.8); Alkaline Phosphatase 46 U/L (38-126); Aspartate Aminotransferase 36 IU/L (14-36); BUN Creatinine Ratio 13.4 (6-22); Bilirubin Total 0.5 mg/dL (0.2-1.3); Blood Urea Nitrogen 15 mg/dL (7-17); Calcium 9.1 mg/dL (8.4-10.2); Carbon Dioxide 32 mmol/L (22-32); Chloride 90 mmol/L (98-107); Estimated Glomerular Filt Rate 50 mL/min (>60); Globulin 2.9 g/dL (1.7-4.1); Glucose 144 mg/dL (80-110); HEMOLYSIS < 15 (0-50); Lipase 19 U/L (23-300); Magnesium 1.4 mg/dL (1.6-2.3); Potassium 3.2 mmol/L (3.4-5.1); Sodium 128 mmol/L (137-145); Total Protein 6.8 g/dL (6.3-8.2)
[2023-02-26 21:57] LABS: Troponin I 0.036 ng/mL (0.01-0.034)
[2023-02-26 21:58] LABS: Lactate (Lactic Acid) 1.6 mmol/L (0.7-2.1)
[2023-02-26 22:02] LABS: Procalcitonin 5.86 ng/mL (<0.5)
[2023-02-26 22:33] LABS: Appearance Urine UA CLEAR; Bilirubin Urine UA 1+ (NEGATIVE); Color Urine UA YELLOW; Glucose Urine UA NEGATIVE (Negative); Ketones Urine UA 1+ (NEGATIVE); Leukocyte Esterase Urine UA NEGATIVE (NEGATIVE); Nitrite Urine UA NEGATIVE (Negative); Occult Blood Urine UA 1+ (Negative); Protein Urine UA 2+ (Negative); Urobilinogen Urine UA 0.2 E.U./dL (0.2)
[2023-02-26 22:40] LABS: Adenovirus Not Detected (Not Detect); Coronavirus 229E Not Detected (Not Detect); Coronavirus HKU1 Not Detected (Not Detect); Coronavirus NL 63 Not Detected (Not Detect); Coronavirus OC43 Not Detected (Not Detect); Human Metapneumovirus Not Detected (Not Detect); SARS- CoV-2 Not Detected (Not Detecte)
[2023-02-26 22:41] LABS: B. parapertussis Not Detected (Not Detecte); Bordetella pertussis Not Detected (Not Detecte); Chlamydophila pneumoniae Not Detected (Not Detect); Human Rhinovirus/Enterovirus Not Detected (Not Detect); Influenza A Not Detected (Not Detect); Influenza B Not Detected (Not Detect); Mycoplasma pneumoniae Not Detected (Not Detect); Parainfluenza Virus 1 Not Detected (Not Detect); Parainfluenza Virus 2 Not Detected (Not Detect); Parainfluenza Virus 3 Not Detected (Not Detect); Parainfluenza Virus 4 Not Detected (Not Detect); Respiratory Syncytial Virus Not Detected (Not Detect)
[2023-02-26 22:47] LABS: Ictotest Urine Negative (Negative)
[2023-02-26 22:59] LABS: RBC Urine 1-5/HPF (0-5/HPF); WBC Urine 0-1/HPF (0-5/HPF)
[2023-02-26 23:00] LABS: Bacteria Urine None Seen; Culture Indicated Urine Cult Not Indicated
[2023-02-27] VITALS (14 sets, daily range): BP systolic 84–124; BP diastolic 38–69; PULSE 85–97; RESP 17–28; TEMP 36.4–36.8; O2SAT 89–97; BMI 23.1
--- NOTE | 2023-02-27 01:54 | ED_ITS ---
HPI - General Adult General Chief complaint: Altered Mental Status Stated complaint: suspected stroke Time Seen by Provider: 02/26/23 21:13 Source: patient and family Mode of arrival: Wheelchair History of Present Illness HPI narrative: 82-year-old woman with a history of hypertension, coronary artery disease, peripheral neuropathy, endometrial cancer, atrial fibrillation anticoagulated on enoxaparin who presents with 3 days of diarrhea, weakness decreased appetite fever slight confusion. At 7:30 a.m. tonight she was found slightly confused slumped over in her chair and brought into the emergency department with concerns for continued confusion. She is significantly weak and notes that she is been having diarrhea over the last couple of days and difficulty getting to the bathroom. With each episode of diarrhea she is taken some dicyclomine which does seem to have helped. She states she is felt like curling into a ball for the last 2 days because she simply does not feel well but does not describe significant fevers. No cough, no orthopnea, no abdominal pain, flank pain. Related Data Home Medications Medication Instructions Recorded Confirmed [sylvia] ##0 02/05/17 12/05/22 calcium carbonate 600 mg-vitamin cap PO 04/06/18 12/05/22 D3 10 mcg (400 unit) capsule cetirizine 10 mg capsule (Zyrtec) PO 04/06/18 12/05/22 anastrozole 1 mg tablet 1 mg PO DAILY 08/06/21 12/05/22 Previous Rx's Medication Instructions Recorded Compression Garments #1 ea 12/27/21 carvedilol 3.125 mg tablet See Rx Instructions .Route 07/08/22 .COMPLEX #180 tabs duloxetine 60 mg capsule,delayed 60 mg PO BID #180 caps 07/08/22 release gabapentin 600 mg tablet 1,200 mg PO TID #540 tabs 07/08/22 (Neurontin) irbesartan 300 mg tablet See Rx Instructions .Route 07/08/22 .COMPLEX #90 tabs mirtazapine 45 mg tablet 45 mg PO BEDTIME #90 tabs 07/08/22 omeprazole 20 mg capsule,delayed 20 mg PO QDAY PRN acid reflux #90 07/08/22 release caps niacin 1,000 mg tablet,extended 1,000 mg PO BEDTIME #90 tabs 08/01/22 release 24 hr zoledronic acid 5 mg/100 mL in See Rx Instructions IV ONCE #100 mL 09/04/22 mannitol 5 %-water intravenous piggybck (Reclast) dicyclomine 20 mg tablet See Rx Instructions .Route 12/01/22 .COMPLEX #60 tabs clobetasol 0.05 % topical ointment 1 applic topical QAM AND QPM #15 12/05/22 grams Disabled Parking Permit See Rx Instructions .Route 01/27/23 .COMPLEX #1 unit enoxaparin 100 mg/mL subcutaneous 100 mg SUBCUT DAILY #90 ea 02/24/23 syringe (Lovenox) oxycodone 10 mg tablet,crush 10 mg PO BID #60 tabs 02/25/23 resistant,extended release 12 hr (OxyContin) oxycodone 5 mg tablet 5 mg PO Q4H PRN pain #180 tabs 02/25/23 temazepam 7.5 mg capsule 15 mg PO BEDTIME PRN sleep #180 02/25/23 caps Allergies Allergy/AdvReac Type Severity Reaction Status Date / Time Penicillins [PENICILLINS] Allergy Unknown Verified 02/26/23 21:20 Review of Systems Review of Systems Narrative: Pertinent positive and negative findings as per HPI Patient History Medical History Abdominal muscle pain Adverse reaction to statin medication Cellulitis and abscess of leg Chickenpox Chronic cough (~2014) Chronic neoplasm-related pain Chronic pain of both lower extremities (01/22/18) Colon polyps (~2011) Continuous opioid dependence 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) Essential hypertension Hyperlipidemia Hypertension (~2010) Lymphedema of both lower extremities Malignant neoplasm of endometrium (~2006) Measles (~194) Mumps (~194) Myocardial infarction (~06/2019) Osteoporosis Paronychia of finger of right hand Port-A-Cath in place Sepsis Systolic heart failure secondary to coronary artery disease (~06/29/19) Takotsubo cardiomyopathy (~06/2019) Trigger finger, left ring finger Vision abnormalities Weight loss Surgical History Status post breast biopsy (~1967) Status post hysterectomy (~2006) Status post tubal ligation (~1988) Social History household members: spouse Smoking Status: Never smoker alcohol intake: never Smoking Status: Never smoker Substance Use Type: does not use Exam Initial Vital Signs Initial Vital Signs: Vital Signs Temperature 98.2 F 02/26/23 21:11 Pulse Rate 98 H 02/26/23 21:11 Respiratory Rate 20 02/26/23 21:11 Blood Pressure 130/61 02/26/23 21:11 Pulse Oximetry 95 02/26/23 21:11 Oxygen Delivery Method Room Air 02/26/23 21:11 General: Chronically ill-appearing, quite thin, very dry mucous membranes HEENT: normal sclera with reactive pupils, Neck: No JVD, supple Respiratory: Lungs are clear to auscultation, no wheezing no rales no rhonchi. Full and symmetrical air movement Cardiac: Tachycardic without murmurs Abdomen: Soft, nontender, good bowel tones, no flank pain Skin: Flushed but otherwise Warm and dry, no rashes Neurologic: Globally weak but otherwise Grossly neurologically intact with no obvious asymmetries or abnormalities Extremities: No trauma, well perfused Psych: Cooperative, appropriate insight and affect Course Orders Ordered: ED Orders 02/26/23 21:10 Complete Blood Count AUTO DIFF Stat Comprehensive Metabolic Panel Stat Lactate (Lactic Acid) Stat Lipase Stat Magnesium Stat Procalcitonin Stat Troponin I Stat 02/26/23 21:14 XR chest 1V Stat EKG-12 Lead Stat 02/26/23 21:35 Blood Culture Stat 02/26/23 21:40 Respiratory Panel (Film Array) Stat 02/26/23 22:00 Ictotest Urine Stat Urinalysis and Microscopic Stat 02/27/23 02:09 GI Panel (Film Array) Stat Discontinued Medications Sodium Chloride (Normal Saline 0.9%) 1,000 mls @ 1,000 mls/hr IV BOLUS ONE Stop: 02/26/23 22:13 Last Infusion: 02/26/23 22:33 Dose: 0 mls/hr Documented By: Admin: 02/26/23 21:33 Dose: 1,000 mls/hr Documented By: MELVA Vital Signs Vital signs: Vital Signs - 8 hr 02/26/23 21:11 02/26/23 21:41 02/26/23 21:43 Temperature 98.2 F Pulse Rate 98 H 87 84 Respiratory Rate 20 29 H 24 Blood Pressure 130/61 Pulse Oximetry 95 93 Oxygen Delivery Method Room Air 02/26/23 21:43 02/26/23 22:00 02/26/23 22:00 Temperature Pulse Rate 84 Respiratory Rate 27 H Blood Pressure 153/71 H 137/63 Pulse Oximetry 94 Oxygen Delivery Method 02/26/23 22:30 02/26/23 22:30 02/26/23 23:00 Temperature Pulse Rate 91 H Respiratory Rate 24 Blood Pressure 141/67 H 132/68 Pulse Oximetry 93 Oxygen Delivery Method 02/26/23 23:00 02/26/23 23:30 02/26/23 23:30 Temperature Pulse Rate 85 93 H Respiratory Rate 25 H 27 H Blood Pressure 101/55 L Pulse Oximetry 95 92 Oxygen Delivery Method 02/27/23 00:00 02/27/23 00:00 02/27/23 00:30 Temperature Pulse Rate 97 H Respiratory Rate 27 H Blood Pressure 106/55 L 116/56 L Pulse Oximetry 90 L Oxygen Delivery Method 02/27/23 00:30 Temperature Pulse Rate 97 H Respiratory Rate 28 H Blood Pressure Pulse Oximetry 89 L Oxygen Delivery Method Medical Decision Making Lab Data 02/26/23 21:10 02/26/23 21:10 Labs: Lab Results 02/26/23 02/26/23 02/26/23 Range/Units 21:10 21:10 21:10 WBC 9.1 (4.5-11.0) X10^3/uL RBC 4.18 (4.0-5.2) X10^6/uL Hgb 12.6 (12.0-16.0) g/dL Hct 37.6 (36-46) % MCV 90.0 (80-100) fL MCH 30.2 (26-34) PG MCHC 33.6 (30-36) % RDW 14.1 (11.6-14.8) % Plt Count 217 (150-400) X10^3/uL Neut % (Auto) 89.3 H (50-75) % Lymph % (Auto) 7.6 L (25-40) % Frontier % (Auto) 2.7 L (3-14) % Eos % (Auto) 0.0 L (2-4) % Baso % (Auto) 0.4 (0-2) % Neut # (Auto) 8100 H (2973-0611) /uL Lymph # (Auto) 700 L (9528-7326) /uL Frontier # (Auto) 200 (0-900) /uL Eos # (Auto) 0 (0-450) /uL Baso # (Auto) 0 (0-100) /uL Sodium 128 L (137-145) mmol/L Potassium 3.2 L (3.4-5.1) mmol/L Chloride 90 L (98-107) mmol/L Carbon Dioxide 32 (22-32) mmol/L BUN 15 (7-17) mg/dL Creatinine 1.12 H (0.52-1.04) mg/dL Estimated GFR 50 L (>60) mL/min BUN/Creatinine Ratio 13.4 (6-22) Glucose 144 H (80-110) mg/dL Lactate 1.6 (0.7-2.1) mmol/L Calcium 9.1 (8.4-10.2) mg/dL Magnesium 1.4 L (1.6-2.3) mg/dL Total Bilirubin 0.5 (0.2-1.3) mg/dL AST 36 (14-36) IU/L ALT 32 (<35) IU/L Alkaline Phosphatase 46 (38-126) U/L Troponin I 0.036 H (0.01-0.034) ng/mL Total Protein 6.8 (6.3-8.2) g/dL Albumin 3.9 (3.5-5.0) g/dL Globulin 2.9 (1.7-4.1) g/dL Albumin/Globulin Ratio 1.3 (1.0-2.8) Lipase 19 L (23-300) U/L Procalcitonin 5.86 H (<0.5) ng/mL Urine Color Urine Appearance Urine pH (4.5-8.0) Ur Specific [place] (1.000-1.035) Urine Protein (Negative) Urine Glucose (UA) (Negative) g/dL Urine Ketones (NEGATIVE) Urine Occult Blood (Negative) Urine Nitrate (Negative) Urine Bilirubin (NEGATIVE) Ur Bilirubin Confirm (Negative) Urine Urobilinogen (0.2) E.U./dL Ur Leukocyte Esterase (NEGATIVE) Urine RBC (0-5/HPF) Urine WBC (0-5/HPF) Urine Bacteria (None) Ur Culture Indicated? Chlamy pneumoniae PCR (Not Detect) Adenovirus (PCR) (Not Detect) B. pertussis DNA (PCR) (Not Detecte) B.parapertussis DNA PCR (Not Detecte) Coronavirus OC43 (PCR) (Not Detect) Coronavirus HKU1 (PCR) (Not Detect) Coronavirus 229E (PCR) (Not Detect) SARS-CoV-2 (PCR) (Not Detecte) Coronavirus NL63 (PCR) (Not Detect) Human Metapneumovir PCR (Not Detect) Influenza Type A (PCR) (Not Detect) Influenza Type B (PCR) (Not Detect) M. pneumoniae (PCR) (Not Detect) Parainfluenza 1 (PCR) (Not Detect) Parainfluenza 2 (PCR) (Not Detect) Parainfluenza 3 (PCR) (Not Detect) Parainfluenza 4 (PCR) (Not Detect) RSV (PCR) (Not Detect) Entero/Rhino (PCR) (Not Detect) 02/26/23 02/26/23 Range/Units 21:40 22:00 WBC (4.5-11.0) X10^3/uL RBC (4.0-5.2) X10^6/uL Hgb (12.0-16.0) g/dL Hct (36-46) % MCV (80-100) fL MCH (26-34) PG MCHC (30-36) % RDW (11.6-14.8) % Plt Count (150-400) X10^3/uL Neut % (Auto) (50-75) % Lymph % (Auto) (25-40) % Frontier % (Auto) (3-14) % Eos % (Auto) (2-4) % Baso % (Auto) (0-2) % Neut # (Auto) (7162-8896) /uL Lymph # (Auto) (1330-5090) /uL Frontier # (Auto) (0-900) /uL Eos # (Auto) (0-450) /uL Baso # (Auto) (0-100) /uL Sodium (137-145) mmol/L Potassium (3.4-5.1) mmol/L Chloride (98-107) mmol/L Carbon Dioxide (22-32) mmol/L BUN (7-17) mg/dL Creatinine (0.52-1.04) mg/dL Estimated GFR (>60) mL/min BUN/Creatinine Ratio (6-22) Glucose (80-110) mg/dL Lactate (0.7-2.1) mmol/L Calcium (8.4-10.2) mg/dL Magnesium (1.6-2.3) mg/dL Total Bilirubin (0.2-1.3) mg/dL AST (14-36) IU/L ALT (<35) IU/L Alkaline Phosphatase (38-126) U/L Troponin I (0.01-0.034) ng/mL Total Protein (6.3-8.2) g/dL Albumin (3.5-5.0) g/dL Globulin (1.7-4.1) g/dL Albumin/Globulin Ratio (1.0-2.8) Lipase (23-300) U/L Procalcitonin (<0.5) ng/mL Urine Color Yellow Urine Appearance Clear Urine pH 6.0 (4.5-8.0) Ur Specific [place] 1.020 (1.000-1.035) Urine Protein 2+ H (Negative) Urine Glucose (UA) Negative (Negative) g/dL Urine Ketones 1+ H (NEGATIVE) Urine Occult Blood 1+ H (Negative) Urine Nitrate Negative (Negative) Urine Bilirubin 1+ H (NEGATIVE) Ur Bilirubin Confirm Negative (Negative) Urine Urobilinogen 0.2 (0.2) E.U./dL Ur Leukocyte Esterase Negative (NEGATIVE) Urine RBC 1-5/hpf D (0-5/HPF) Urine WBC 0-1/hpf (0-5/HPF) Urine Bacteria None seen (None) Ur Culture Indicated? Cult not indicated Chlamy pneumoniae PCR Not detected (Not Detect) Adenovirus (PCR) Not detected (Not Detect) B. pertussis DNA (PCR) Not detected (Not Detecte) B.parapertussis DNA PCR Not detected (Not Detecte) Coronavirus OC43 (PCR) Not detected (Not Detect) Coronavirus HKU1 (PCR) Not detected (Not Detect) Coronavirus 229E (PCR) Not detected (Not Detect) SARS-CoV-2 (PCR) Not detected (Not Detecte) Coronavirus NL63 (PCR) Not detected (Not Detect) Human Metapneumovir PCR Not detected (Not Detect) Influenza Type A (PCR) Not detected (Not Detect) Influenza Type B (PCR) Not detected (Not Detect) M. pneumoniae (PCR) Not detected (Not Detect) Parainfluenza 1 (PCR) Not detected (Not Detect) Parainfluenza 2 (PCR) Not detected (Not Detect) Parainfluenza 3 (PCR) Not detected (Not Detect) Parainfluenza 4 (PCR) Not detected (Not Detect) RSV (PCR) Not detected (Not Detect) Entero/Rhino (PCR) Not detected (Not Detect) MDM Narrative Medical decision making narrative: CC:weakness, confusion. Acute diagnosis uncertain prognosis Complicating co-morbidities: Endometrial cancer, coronary artery disease, hypertension Data collected from: patient, Social determinants of health that may influence the patients condition: Medical records reviewed: Family practice notes from December [id number] are reviewed Differential considered: Viral syndrome, dehydration, electrolyte abnormalities or kidney dysfunction secondary to dehydration, Clostridium difficile, Exam documented above, pertinent findings include: Significant weakness mild confusion very dry mucous membranes Lab Test results independently reviewed as above. Pertinent findings: CBC is unremarkable Chemistries show acute kidney injury with creatinine up at 1.12. Potassium low at 3.2, hyponatremia at 128 (her baseline appears to be in the 135-38 range), minimally elevated troponin at 0.036 Significantly elevated procalcitonin Lactic acid is 1.6 Respiratory panel does not have any significant abnormalities appreciated Urinalysis looks like she is dehydrated however no suggestion of urinary tract infection Independently reviewed EKG sinus rhythm at a rate of 93, normal intervals, normal axis. No acute ischemic changes Imaging studies independently reviewed: Chest x-ray shows no acute cardiopulmonary disease Treatments: Fluid resuscitation, potassium, oral rehydration Re-evaluations: 2am after a L of fluid patient is dramatically improved. Making much more sense, still weak, would like to try some water. At this time it is not entirely clear what caused her diarrhea but it does appear diarrhea caused the hyponatremia and hypokalemia. She is still quite weak so I am not sure that discharge home this evening will be appropriate however with the rapid improvement after rehydration she may do better by later this afternoon and able to be home by this evening Discussion: 82-year-old woman with 48 hours of diarrhea, significant dehydration, hyponatremia, hyponatremia with no evidence of urinary tract infection, respiratory panel is unremarkable, no evidence of bacterial pneumonia. Belly is soft and she does not have a history of recent antibiotic use. If she does continue to have diarrhea will do a stool panel. Discussed discharge home versus admission. At this point she still so weak she is having difficultly even sitting up in bed. Will plan on observation admission for acute kidney injury, dehydration secondary to diarrhea, hyponatremia and hypokalemia. We will review with the hospitalist service. Discharge Plan Departure Patient Disposition: Admitted as Observation Clinical Impression: Acute dehydration, Acute kidney injury, Hypokalemia, Acute hyponatremia Diarrhea Qualifiers: Diarrhea type: unspecified type Qualified Code(s): R19.7 - Diarrhea, unspecified
[2023-02-27] MEDS: POTASSIUM CHLORIDE IN WATER 10 MEQ/100 ML PIGGYBACK 100 MEQ IV ×4 (02:31→07:44)
--- NOTE | 2023-02-27 03:00 | P.HP_ITS ---
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 The patient states that she is had a poor appetite and her last diarrhea was yesterday afternoon had started bentyl as prescribed by her pcp . In ED patient was found to be severely dehydrated low sodium, low potassium and low magnesium. It is of note that the patient also is caring for her spouse who underwent major surgery for anal cancer and continues to require in-home caretakers who are currently on vacation for the week. On admit patient denies chest pain, shortness in breath, headache, changes in vision, difficulty swallowing, speech impairment, numbness, tingling, difficulty with ambulation, recent falls, head injury, LOC, fever, body aches, chills, cough, recent exposure to illness, nausea, vomiting, urinary incontinenc e/retention, dysuria, frequency, urgency, hematuria, constipation, incontinence, melena, rashes, recent changes to medication or antibiotics, injury, or trauma. Patient is alert and oriented, and provides a good history, vital signs are stable temp 98.2?, BP 132/68, 85, 25, 95%. Patient has no white count, sodium 128, potassium 3.2, chloride 90, creatinine 1.12, glucose 144, magnesium 1.4, GFR 50, procalcitonin 5.86, lactate normal, respiratory panel is negative, urinalysis is negative, troponin initial 0.036, chest x-ray is negative for any acute cardiopulmonary process. Patient admitted for intractable diarrhea resulting in dehydration with mild RICH, hyponatremia, hypokalemia, hypomagn esium. [facility] Medical History (Updated 02/27/23 @ 05:05 by ROGELIO Lipscomb) Abdominal muscle pain Adverse reaction to statin medication Cellulitis and abscess of leg Chickenpox Chronic cough (~2014) Chronic neoplasm-related pain Chronic pain of both lower extremities (01/22/18) Colon polyps (~2011) Continuous opioid dependence 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) Essential hypertension History of thyroid nodule Hyperlipidemia Hypertension (~2010) Lymphedema of both lower extremities Malignant neoplasm of endometrium (~2006) Measles (~194) Mumps (~194) Myocardial infarction (~06/2019) Osteoporosis Paronychia of finger of right hand Port-A-Cath in place Sepsis Systolic heart failure secondary to coronary artery disease (~06/29/19) Takotsubo cardiomyopathy (~06/2019) Trigger finger, left ring finger Vision abnormalities Weight loss Surgical History Status post breast biopsy (~1967) Status post hysterectomy (~2006) Status post tubal ligation (~1988) Social History household members: spouse Smoking Status: Never smoker alcohol intake: never Meds Home Medications and Allergies Home Medications Medication Instructions Recorded Confirmed Type [culterelle] ##0 02/05/17 12/05/22 History calcium carbonate 600 mg-vitamin cap PO 04/06/18 12/05/22 History D3 10 mcg (400 unit) capsule cetirizine 10 mg capsule (Zyrtec) PO 04/06/18 12/05/22 History anastrozole 1 mg tablet 1 mg PO DAILY 08/06/21 12/05/22 History Compression Garments #1 ea 12/27/21 12/05/22 Rx carvedilol 3.125 mg tablet See Rx Instructions .Route 07/08/22 12/05/22 Rx .COMPLEX #180 tabs duloxetine 60 mg capsule,delayed 60 mg PO BID #180 caps 07/08/22 12/05/22 Rx release gabapentin 600 mg tablet 1,200 mg PO TID #540 tabs 07/08/22 12/05/22 Rx (Neurontin) irbesartan 300 mg tablet See Rx Instructions .Route 07/08/22 12/05/22 Rx .COMPLEX #90 tabs mirtazapine 45 mg tablet 45 mg PO BEDTIME #90 tabs 07/08/22 12/05/22 Rx omeprazole 20 mg capsule,delayed 20 mg PO QDAY PRN acid reflux #90 07/08/22 Rx release caps niacin 1,000 mg tablet,extended 1,000 mg PO BEDTIME #90 tabs 08/01/22 12/05/22 Rx release 24 hr zoledronic acid 5 mg/100 mL in See Rx Instructions IV ONCE #100 mL 09/04/22 12/05/22 Rx mannitol 5 %-water intravenous piggybck (Reclast) dicyclomine 20 mg tablet See Rx Instructions .Route 12/01/22 12/05/22 Rx .COMPLEX #60 tabs clobetasol 0.05 % topical ointment 1 applic topical QAM AND QPM #15 12/05/22 12/05/22 Rx grams Disabled Parking Permit See Rx Instructions .Route 01/27/23 Rx .COMPLEX #1 unit oxycodone 10 mg tablet,crush 10 mg PO BID #60 tabs 02/25/23 Rx resistant,extended release 12 hr (OxyContin) oxycodone 5 mg tablet 5 mg PO Q4H PRN pain #180 tabs 02/25/23 Rx temazepam 7.5 mg capsule 15 mg PO BEDTIME PRN sleep #180 02/25/23 Rx caps enoxaparin 100 mg/mL subcutaneous 100 mg SUBCUT QAM 02/27/23 History syringe (Lovenox) Allergies Allergy/AdvReac Type Severity Reaction Status Date / Time Penicillins [PENICILLINS] Allergy Unknown Verified 02/26/23 21:20 Review of Systems Review of Systems Narrative: All 12 point systems reviewed with the patient and are negative except otherwise documented. Exam Vital Signs (past 8 hours): - 02/26/23 21:11 02/26/23 21:41 02/26/23 21:43 Temperature 98.2 F Pulse Rate 98 H 87 84 Respiratory Rate 20 29 H 24 Blood Pressure 130/61 Pulse Oximetry 95 93 Oxygen Delivery Method Room Air 02/26/23 21:43 02/26/23 22:00 02/26/23 22:00 Temperature Pulse Rate 84 Respiratory Rate 27 H Blood Pressure 153/71 H 137/63 Pulse Oximetry 94 Oxygen Delivery Method 02/26/23 22:30 02/26/23 22:30 02/26/23 23:00 Temperature Pulse Rate 91 H Respiratory Rate 24 Blood Pressure 141/67 H 132/68 Pulse Oximetry 93 Oxygen Delivery Method 02/26/23 23:00 02/26/23 23:30 02/26/23 23:30 Temperature Pulse Rate 85 93 H Respiratory Rate 25 H 27 H Blood Pressure 101/55 L Pulse Oximetry 95 92 Oxygen Delivery Method 02/27/23 00:00 02/27/23 00:00 02/27/23 00:30 Temperature Pulse Rate 97 H Respiratory Rate 27 H Blood Pressure 106/55 L 116/56 L Pulse Oximetry 90 L Oxygen Delivery Method 02/27/23 00:30 Temperature Pulse Rate 97 H Respiratory Rate 28 H Blood Pressure Pulse Oximetry 89 L Oxygen Delivery Method Oxygen Delivery Method Room Air Narrative Exam Narrative: General: Patient is a frail thin chronically ill-appearing female in no distress at this time. HEENT: Normocephalic, atraumatic, extraocular muscles intact, oral pharynx is clear and mucous membranes are very dry. Neck is supple and symmetric, trachea is midline, no adenopathy, no thyroid enlargement, nontender, no masses palpated. Negative for JVD Chest: Breathing with no nasal flaring, retractions, tachypneic or labored Lungs: Auscultation of all lung valdes are clear without adventitious sounds, wheezes, rhonchi, or rales. Cardio: regular rate and rhythm without murmur, rubs, or gallops, no carotid bruit, no cardiac pulsations present. Abdomen: Soft nontender, negative for organomegaly, or masses. Bowel sounds are hypoactive present in all 4 quadrants without guarding or rebound, no CVA tenderness. Musculoskeletal: Muscle strength and tone are equal, significant weakness/deconditioning, no deformity, crepitus, effusions, cyanosis, clubbing, bilateral LE edema, noted warmth erythema to dorsal side of the left foot, non tender, no open skin. Full range of motion intact radial and pedal pulses are normal. Skin: Warm dry and intact without rashes, ulcerations or petechiae. Neuro: Alert and orientated x3 moves all extremities, sensation to touch intact, no gross deficits noted of cranial nerves. Psych: Patient has a well-kept appearance, appropriate affect. Objective Labs 02/26/23 21:10 02/26/23 21:10 Labs: Laboratory Results - last 24 hr 02/26/23 02/26/23 02/26/23 21:10 21:10 21:10 WBC 9.1 RBC 4.18 Hgb 12.6 Hct 37.6 MCV 90.0 MCH 30.2 MCHC 33.6 RDW 14.1 Plt Count 217 Neut % (Auto) 89.3 H Lymph % (Auto) 7.6 L [place] % (Auto) 2.7 L Eos % (Auto) 0.0 L Baso % (Auto) 0.4 Neut # (Auto) 8100 H Lymph # (Auto) 700 L [place] # (Auto) 200 Eos # (Auto) 0 Baso # (Auto) 0 Sodium 128 L Potassium 3.2 L Chloride 90 L Carbon Dioxide 32 BUN 15 Creatinine 1.12 H Estimated GFR 50 L BUN/Creatinine Ratio 13.4 Glucose 144 H Lactate 1.6 Calcium 9.1 Magnesium 1.4 L Total Bilirubin 0.5 AST 36 ALT 32 Alkaline Phosphatase 46 Troponin I 0.036 H Total Protein 6.8 Albumin 3.9 Globulin 2.9 Albumin/Globulin Ratio 1.3 Lipase 19 L Procalcitonin 5.86 H Urine Color Urine Appearance Urine pH Ur Specific [place] Urine Protein Urine Glucose (UA) Urine Ketones Urine Occult Blood Urine Nitrate Urine Bilirubin Ur Bilirubin Confirm Urine Urobilinogen Ur Leukocyte Esterase Urine RBC Urine WBC Urine Bacteria Ur Culture Indicated? Chlamy pneumoniae PCR Adenovirus (PCR) B. pertussis DNA (PCR) B.parapertussis DNA PCR Coronavirus OC43 (PCR) Coronavirus HKU1 (PCR) Coronavirus 229E (PCR) SARS-CoV-2 (PCR) Coronavirus NL63 (PCR) Human Metapneumovir PCR Influenza Type A (PCR) Influenza Type B (PCR) M. pneumoniae (PCR) Parainfluenza 1 (PCR) Parainfluenza 2 (PCR) Parainfluenza 3 (PCR) Parainfluenza 4 (PCR) RSV (PCR) Entero/Rhino (PCR) 02/26/23 02/26/23 21:40 22:00 WBC RBC Hgb Hct MCV MCH MCHC RDW Plt Count Neut % (Auto) Lymph % (Auto) [place] % (Auto) Eos % (Auto) Baso % (Auto) Neut # (Auto) Lymph # (Auto) [place] # (Auto) Eos # (Auto) Baso # (Auto) Sodium Potassium Chloride Carbon Dioxide BUN Creatinine Estimated GFR BUN/Creatinine Ratio Glucose Lactate Calcium Magnesium Total Bilirubin AST ALT Alkaline Phosphatase Troponin I Total Protein Albumin Globulin Albumin/Globulin Ratio Lipase Procalcitonin Urine Color Yellow Urine Appearance Clear Urine pH 6.0 Ur Specific [place] 1.020 Urine Protein 2+ H Urine Glucose (UA) Negative Urine Ketones 1+ H Urine Occult Blood 1+ H Urine Nitrate Negative Urine Bilirubin 1+ H Ur Bilirubin Confirm Negative Urine Urobilinogen 0.2 Ur Leukocyte Esterase Negative Urine RBC 1-5/hpf D Urine WBC 0-1/hpf Urine Bacteria None seen Ur Culture Indicated? Cult not indicated Chlamy pneumoniae PCR Not detected Adenovirus (PCR) Not detected B. pertussis DNA (PCR) Not detected B.parapertussis DNA PCR Not detected Coronavirus OC43 (PCR) Not detected Coronavirus HKU1 (PCR) Not detected Coronavirus 229E (PCR) Not detected SARS-CoV-2 (PCR) Not detected Coronavirus NL63 (PCR) Not detected Human Metapneumovir PCR Not detected Influenza Type A (PCR) Not detected Influenza Type B (PCR) Not detected M. 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 Patient admitted for intractable diarrhea resulting in dehydration mild RICH, hyponatremia, hypokalemia, hypomagnesemia. Patient to be rehydrated monitor electrolytes and replace as needed, culture and evaluate stool for infectious process. 1. Intractable diarrhea leading to severe dehydration, acute, present on admission -resulting in hyponatremia, hypokalemia, hypomagnesia -unknown etiology -potassium 3.2: Potassium 20 mEq oral and 20 mEq IV given in ED. -sodium 128: 1 L bolus NS given in ED, continue NS at 80 cc/HR x5 hours -Mag 1.4: Ordered 2 g rider -loperamide 4 mg to be given after initial diarrhea, repeat 2 mg after each diarrhea with a max of 16mg/day -ordered stool cultures, O& P, C diff, H pylori, repeat procalcitonin 5.86, lactate 2. RICH, mild, acute secondary to dehydration from diarrhea, present on admission Initial creatinine 1.12, previous 0.99, initial GFR 50, previous 58 -rehydrate and monitor renal function -avoid nephrotoxic medication 3. Endometrial cancer, stage IV, acute on chronic, present on admission -continue anastrozole 4. Chronic atrial fibrillation on chronic anticoagulation, chronic, present on admission -continue Lovenox 5. Systolic heart failure secondary to coronary artery disease, chronic, present on admission -continue carvedilol, irbesartan -troponin 0.036, repeat in a.m. -last echo 2019 EF of 55-60% 6. Chronic pain with opiate dependence secondary to neoplastic disease, chronic, present on admission -continue Oxy, gabapentin 7. 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 GERD, chronic, present on admission -continue omeprazole 9. Malnutrition, mild, acute on chronic, likely secondary to metastatic disease present on admission -BMI 22.6 -patient's malnutrition places them at high risk for medical and surgical complications in relation to acute illness/chronic illness. This increases the difficulty in complexity of medical management and increases the chances poor outcomes such as mortality and morbidity as well as impaired wound healing, and immune suppression. -dietary consult ordered to evaluate and implement steps to improve caloric intake and nutrition. Code status: Full Surrogate decision maker: Nahun Rodríguezey spouse COVID PCR: Negative PCP: Susie Reveles DVT/VTE prophylaxis: Patient on high dose Lovenox, SCDs only Disposition: Patient admitted for observation expected length of stay less than 2 midnights. I have utilized all available immediate resources to obtain, update, or review the patient's current medications. I confirmed that the patient's advanced care plan is present, Code status is documented and/or surrogate decision maker is listed in the patient's medical record. I have personally reviewed patient's chart notes from PCP, specialists, diagnostic imaging, and laboratory results.
[2023-02-27] MEDS: SODIUM CHLORIDE 0.9% 1,000 ML 80 ML IV (05:20)
[2023-02-27 06:18] LABS: INR 1.3 (0.9-1.3); Prothrombin Time 14.8 SECONDS (10.1-12.7)
[2023-02-27] MEDS: PANTOPRAZOLE DR 20 MG TABLET PO (06:19)
[2023-02-27] MEDS: POTASSIUM CHLORIDE 20 MEQ TAB PO (06:19)
[2023-02-27 06:34] LABS: Add Manual Diff / Slide Review NO; Basophils Absolute Auto 0 /uL (0-100); Basophils Percent Auto 0.2 % (0-2); Eosinophils Absolute Auto 0 /uL (0-450); Hematocrit 29.9 % (36-46); Hemoglobin 10.1 g/dL (12.0-16.0); Lymphocytes Absolute Auto 500 /uL (1100-4500); Mean Corpuscular HGB Conc 33.9 % (30-36); Mean Corpuscular Hemoglobin 30.5 PG (26-34); Monocytes Absolute Auto 200 /uL (0-900); Monocytes Percent Auto 2.9 % (3-14); Neutrophils Absolute Auto 7700 /uL (1500-7000); Neutrophils Percent Auto 90.9 % (50-75); Platelet Count 158 X10^3/uL (150-400); Red Blood Cell Count 3.32 X10^6/uL (4.0-5.2); Red Cell Distribution Width 14.2 % (11.6-14.8); White Blood Cell Count 8.5 X10^3/uL (4.5-11.0)
[2023-02-27] MEDS: MAGNESIUM SULFATE 2 GM/50 ML PIGGYBACK IV (06:51)
[2023-02-27 06:53] LABS: Lactate (Lactic Acid) 0.7 mmol/L (0.7-2.1)
[2023-02-27 07:18] LABS: Alanine Aminotransferase 22 IU/L (<35); Albumin 2.7 g/dL (3.5-5.0); Albumin Globulin Ratio 1.3 (1.0-2.8); Alkaline Phosphatase 35 U/L (38-126); Aspartate Aminotransferase 23 IU/L (14-36); BUN Creatinine Ratio 16.7 (6-22); Blood Urea Nitrogen 14 mg/dL (7-17); Calcium 7.4 mg/dL (8.4-10.2); Carbon Dioxide 28 mmol/L (22-32); Chloride 97 mmol/L (98-107); Estimated Glomerular Filt Rate > 60 mL/min (>60); Globulin 2.1 g/dL (1.7-4.1); Glucose 125 mg/dL (80-110); HEMOLYSIS < 15 (0-50); Magnesium 1.2 mg/dL (1.6-2.3); Potassium 3.4 mmol/L (3.4-5.1); Sodium 128 mmol/L (137-145); Total Protein 4.8 g/dL (6.3-8.2)
[2023-02-27 07:19] LABS: Bilirubin Total < 0.1 mg/dL (0.2-1.3)
[2023-02-27 07:31] LABS: NT-proBNP (BNP-Adult 18+) 1740 pg/mL (<450); Troponin I 0.013 ng/mL (0.01-0.034)
[2023-02-27] MEDS: CALCIUM CARBONATE 500 MG TAB 1000 MG PO (08:56)
[2023-02-27 09:14] LABS: Magnesium 1.9 mg/dL (1.6-2.3)
[2023-02-27] MEDS: SODIUM CHLORIDE 0.9% 1,000 ML 1000 ML IV (09:30)
[2023-02-27] MEDS: OXYCODONE ER 10 MG TAB PO ×2 (11:07→20:48)
[2023-02-27] MEDS: DULOXETINE 30 MG CAPSULE 60 MG PO ×2 (11:08→20:48)
[2023-02-27] MEDS: ANASTROZOLE 1 MG TABLET PO (11:08)
[2023-02-27] MEDS: GABAPENTIN 300 MG CAPSULE PO ×3 (11:11→20:49)
[2023-02-27 12:10] LABS: Campylobacter Not Detected (Not Detect); Clostridium difficile toxin AB Not Detected (Not Detect); Enteroaggregative E.coli Not Detected (Not Detect); Enteropathogenic E.coli Not Detected (Not Detect); Enterotoxigenic E.coli It/st Not Detected (Not Detect); Plesiomonsa shigelloides Not Detected (Not Detect); Salmonella Not Detected (Not Detect); Shiga-like toxin-prod E.coli Not Detected (Not Detect); Vibrio Not Detected (Not Detect); Vibrio cholerae Not Detected (Not Detect); Yersinia enterocolitica Not Detected (Not Detect)
[2023-02-27 12:11] LABS: Adenovirus F 40/41 Not Detected (Not Detect); Astrovirus Not Detected (Not Detect); Cryptosporidium Not Detected (Not Detect); Cyclospora cayetanensis Not Detected (Not Detect); Entamoeba histolytica Not Detected (Not Detect); Giardia lamblia Not Detected (Not Detect); Norovirus GI/GII Not Detected (Not Detect); Rotavirus A Not Detected (Not Detect); Sapovirus Not Detected (Not Detect); Shigella/Enteroinvasive E.coli Not Detected (Not Detect)
--- NOTE | 2023-02-27 12:38 | CM.DANOTE ---
DCP: Case received, EMR reviewed and met with patient. Daughter, Juan Jaimes, was at bedside. Introduced self and role. Was able to obtain information regarding patient's baseline activity status, as well as her current living situation. DCP assessment completed with information currently available. Patient is an 82 year old female who admitted early this morning to the care of the hospitalist team. PCP: ABEL Martinez. Payer: confirmed: [facility] Medicare/[employer]. Patient came to the hospital via private vehicle secondary to having 3 days of diarrhea, weakness, decreased appetite, slight confusion. Patient has history of CAD, peripheral neuropathy, endometrial cancer, and atrial fibrillation. Notes indicate upon admit that patient is alert and oriented, provides a good history. Patient was admitted for intractable diarrhea resulting in diarrhea, which resulted in dehydration with mild RICH, hyponatremia, and hypokalemia. Patient resides here in [place] with spouse, Nahun, who according to daughter, has colon cancer. Patient drives, has a cane for home use. Met with patient, she was laying in bed, alert and oriented, daughter, Juan in the room. Confirmed her correct phone number is: [phone]. She is not POA, asked how to go about this, let her know that there are some advanced directive forms that she can be given. Her concern is that she feels that her mother and spouse are not in a good place. Stated that her has cancer with a colostomy, at times, there is fecal matter in the home. He is under the care of Dr. Chavez. Asked her if she has consulted with [employer], Katia Méndez, about concerns of her father. She indicated that she will touch base with her. Did bring in Senior Resource Book, for some intermediate frame tender planning. Mentioned Mary Aldridge. Asked her if she is familiar with her parents finances, she is not. Encouraged her to sit down and speak to her mother and father about her concerns, as they are both decisional. Patient was able to engage in conversation, and wants to go home. Daughter feels that they both need someone in the home all of the time, since she has kids and can't always be there. Mentioned senior care for patient. Went over the list on the ipad of facilities that take her insurance. [facility] is not contracted with [facility]. Daughter did mention that her dad was there, was not the cleanest place. Gave daughter resources. Re-emphasized that patient is decisional, can't not allow her to go home if this is what she wishes. Will ask Sidra to send referrals to both [facility] and [facility]. Patient is ok with this, but prefers home. Will also need to see how she does with P.T. Daughter feels that her mother is confused, but was able to answer questions appropriately. Sidra will send referrals to both [facility] and [facility] after P.T. notes are in. Other option is home with home health, and can include a health and social care teacher. P: DCP to continue to follow. Have given daughter resource book with assisted living facilities for [place] [facility] [place] planning. Sending over referrals to facilities in [facility], and will see if patient consents to go. Will await P.t. notes before sending. Georgina Ag RN/Air Crew Member Discharge Planning/Care Management CM Discharge Assessment Start: 02/27/23 12:31 Freq: Status: Active Protocol: Document 02/27/23 12:32 (Rec: 02/27/23 12:35 [id number]) Discharge Planning Assessment Assigned News Correspondent Georgina Ag RN/Air Crew Member Advance Directives? Yes Advance Directives on File No History Provided By Patient,Medical Record Prior Living Arrangements House Household Members spouse Type of transporation used prior to Drives own vehicle admit DME Already Rented / Owned Cane Patient/Family Preference [facility] Facility Barriers to Discharge Yes Comment Per daughter, home environment, trying to care for spouse. Discharge Plan [facility] Facility Transportation Arrangement Facility Referrals Initiated [facility] Additional Comment Sending to [facility], [facility], and [facility] If patient plan is SNF: Has PASSR been No: Have not yet completed completed? PASSR. Medicare Choice List Provided Yes Medicare choice list reviewed on family electronic tablet with SNF/HH Preference The facilities in [facility] that accept her insurance. Has Agency SNF been contacted Yes Comment Asking SHARON Valente orthopaedic physician assistant, to fax referral, but will need P .T. notes first Whiteboard Updated in Patient Room with Yes name and ext. # of News Correspondent Review Status In Process Next Review Type Continued Stay Review
--- NOTE | 2023-02-27 13:06 | PC.NURSE ---
Day Shift: At 0855, getting morning med pass started with pt and pulled meds and checked pt's BP to double check if carvedilol was ok to administer and pt's BP was 92/47 (MAP 62) on the left arm. I rechecked BP on the R arm and switched to a larger cuff, and BP was 84/38 (MAP 52). Put pt in Trendelenburg position and checked BP Q5mins; BPs were 95/52 (66) and 99/46 (70). At 0915 MUSEUM DOCENT was called to assist and Car notified Loco FONG. New orders for a once time bolus, d/c carvedilol, dosing change to gabapentin and MD okayed the administration of scheduled Oxycontin d/t exterminator helper termite use and the risk of withdrawal despite pt's low BP. Administered bolus and Oxycontin. At 1040 BP stable at 103/46 (74), 106/50 (65) & 116/47 (70) when checked on pt and I got her up to BSC. Pt was confused about what time of day and the date, stating that she just arrived to our unit and hadn't eaten anything yet. I had watched pt eat almost all her breakfast before administering meds @ 0855, pt stated she did not remember. Spoke to daughter, Juan, on the phone and when she arrived to unit about low BP and pt's mental state. Juan stated that her parents were living on their own, taking care of each other, but in her opinion, not very good care of each other d/t the amount of proper care that each parent needs. Daughter states that father has a chronic erwin, new colostomy and metastatic colon cancer, which regular txs and trips to [facility] in [facility]. Juan also stated that pt has been more confused lately, talking about nonsense, having chronic GI issues, on top of her current dx of dehydration and loose BMs. I assured Juan that we were administering fluids, abx, regular PO meds and currently trying to get a stool sample to tx loose BMs. Juan's phone # for any updates, questions/concerns. I let discharge planning nurse know that daughter was in the room and wished to speak to her about pt's living situation and healthcare needs. Monse notified and spoke with pt's daughter.
[2023-02-27 13:19] LABS: Enterococcus faecalis Not Detected (Not Detect); Enterococcus faecium Not Detected (Not Detect); Listeria monocytogenes Not Detected (Not Detect); Staphylococcus epidermidis Not Detected (Not Detect); Staphylococcus lugdunensis Not Detected (Not Detect); Staphylococcus species Not Detected (Not Detect); Streptococcus species DETECTED (Not Detect)
[2023-02-27 13:20] LABS: Acinetobacter calcoa-baumannii Not Detected (Not Detect); Bacteroides fragilis Not Detected (Not Detect); Candida albicans Not Detected (Not Detect); Candida auris Not Detected (Not Detect); Candida glabrata Not Detected (Not Detect); Candida krusei Not Detected (Not Detect); Candida parapsilosis Not Detected (Not Detect); Candida tropicalis Not Detected (Not Detect); Cryptococcus neoformans/gatti Not Detected (Not Detect); Enterobacter cloacae complex Not Detected (Not Detect); Enterobacterales Not Detected (Not Detect); Haemophilus influenzae Not Detected (Not Detect); Klebsiella aerogenes Not Detected (Not Detect); Neisseria meningitidis Not Detected (Not Detect); Proteus species Not Detected (Not Detect); Pseudomonas aeruginosa Not Detected (Not Detect); Salmonella species Not Detected (Not Detect); Serratia marcescens Not Detected (Not Detect); Stenotrophomonas maltophilia Not Detected (Not Detect); Streptococcus agalactiae (Gr B Not Detected (Not Detect); Streptococcus pneumonia Not Detected (Not Detect); Streptococcus pyogenes (Gr A) Not Detected (Not Detect)
--- NOTE | 2023-02-27 13:23 | OT.IPNOTE ---
Attempted to see pt for OT services. Pt states fatigue and requesting to take a nap. Will follow up as able.
[2023-02-27] MEDS: cefTRIAXone 2,000 MG in SODIUM CHLORIDE 0.9% 100 ML 200 MG IV (14:51)
--- NOTE | 2023-02-27 15:28 | PT-IP ANOTE ---
EMR reviewed and checked on pt. pt refused PT and stated that she does not think she needs PT. informed pt regarding importance of PT. pt stated that she wants to talk to the doctor first. informed hospitalist and will talk to pt. For today, pt refused PT and will f/u tomorrow.
[2023-02-27] MEDS: ENOXAPARIN 100 MG/ML SYRINGE SUBCUT (16:21)
[2023-02-27] MEDS: MIRTAZAPINE 15 MG TABLET 45 MG PO (20:48)
[2023-02-28 01:55] VITALS: O2SAT 90
[2023-02-28] MEDS: PANTOPRAZOLE DR 20 MG TABLET PO (05:37)
[2023-02-28 05:48] LABS: Add Manual Diff / Slide Review NO; Basophils Absolute Auto 0 /uL (0-100); Basophils Percent Auto 0.2 % (0-2); Eosinophils Absolute Auto 0 /uL (0-450); Eosinophils Percent Auto 0.5 % (2-4); Hematocrit 27.2 % (36-46); Hemoglobin 9.4 g/dL (12.0-16.0); Lymphocytes Absolute Auto 600 /uL (1100-4500); Lymphocytes Percent Auto 11.2 % (25-40); Mean Corpuscular HGB Conc 34.6 % (30-36); Mean Corpuscular Volume 89.3 fL (80-100); Monocytes Absolute Auto 200 /uL (0-900); Monocytes Percent Auto 4.1 % (3-14); Neutrophils Absolute Auto 4700 /uL (1500-7000); Platelet Count 150 X10^3/uL (150-400); Red Blood Cell Count 3.04 X10^6/uL (4.0-5.2); White Blood Cell Count 5.6 X10^3/uL (4.5-11.0)
[2023-02-28 05:53] LABS: Alanine Aminotransferase 18 IU/L (<35); Albumin 2.5 g/dL (3.5-5.0); Alkaline Phosphatase 41 U/L (38-126); Aspartate Aminotransferase 16 IU/L (14-36); BUN Creatinine Ratio 16.7 (6-22); Bilirubin Total 0.2 mg/dL (0.2-1.3); Blood Urea Nitrogen 12 mg/dL (7-17); Calcium 7.3 mg/dL (8.4-10.2); Carbon Dioxide 27 mmol/L (22-32); Chloride 101 mmol/L (98-107); Estimated Glomerular Filt Rate > 60 mL/min (>60); Globulin 2.4 g/dL (1.7-4.1); Glucose 99 mg/dL (80-110); HEMOLYSIS < 15 (0-50); Potassium 3.4 mmol/L (3.4-5.1); Sodium 130 mmol/L (137-145); Total Protein 4.9 g/dL (6.3-8.2)
[2023-02-28 06:00] VITALS: BP 121/57; PULSE 84; RESP 13; TEMP 36.5; O2SAT 90
[2023-02-28 06:09] LABS: Procalcitonin 3.73 ng/mL (<0.5)
[2023-02-28 06:47] LABS: Magnesium 1.8 mg/dL (1.6-2.3)
--- NOTE | 2023-02-28 07:44 | CM.DPC ---
DCP Cont: It is noted that patient refused P.T, did not think that she needs it. Had sent referrals to [facility], but had not heard back. Auth will be dependent upon how she does with P.T. P: DCP to continue to follow. Plan will be skilled versus home with home health. Georgina Ag RN/Rubber Gasket Inspector Trimmer
[2023-02-28 08:31] VITALS: BP 113/62; PULSE 86; RESP 22; TEMP 36.8; O2SAT 95
[2023-02-28] MEDS: GABAPENTIN 300 MG CAPSULE PO (08:57)
[2023-02-28] MEDS: ENOXAPARIN 100 MG/ML SYRINGE SUBCUT (08:57)
[2023-02-28] MEDS: OXYCODONE ER 10 MG TAB PO (08:58)
[2023-02-28] MEDS: ANASTROZOLE 1 MG TABLET PO (09:01)
[2023-02-28] MEDS: DULOXETINE 30 MG CAPSULE 60 MG PO (09:01)
--- NOTE | 2023-02-28 09:31 | OT.IP.EVAL ---
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) Essential hypertension History of thyroid nodule Hyperlipidemia Hypertension (~2010) Lymphedema of both lower extremities Malignant neoplasm of endometrium (~2006) Measles (~1943) Mumps (~1943) Myocardial infarction (~06/2019) Osteoporosis Paronychia of finger of right hand Port-A-Cath in place Sepsis Systolic heart failure secondary to coronary artery disease (~06/29/19) Takotsubo cardiomyopathy (~06/2019) Trigger finger, left ring finger Vision abnormalities Weight loss Surgical History (Last Reviewed 02/27/23 @ 03:04 by DAGMAR Lipscomb-NEETA) Status post breast biopsy (~1967) Status post hysterectomy (~2006) Status post tubal ligation (~1988) Occupational Therapy Inpatient Evaluation/Re-Eval M1 PT/OT-IP Prior Functional Status Start: 02/28/23 11:44 Freq: NEEDED Status: Active Protocol: Document 02/28/23 08:45 [facility] (Rec: 02/28/23 11:59 [facility] [id number]) Medical Review Prior Functional Status Medical History Reviewed Yes Diet/Fluid Consistency Regular Communication WFL Mobility and Gait Indep without AD for community distances. Activities of Daily Living and IADL's Indep Prior Functional Level (Other details) Provides caregiving for ill . Social History Household Members spouse Living Arrangements House Number of Floors (Floors) One Floor Number of Stairs To Enter/Railing? 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 She provides caregiving for her who is recovering from cancer surgery. They have in-home caregivers who are currently on vacation and will be back on Friday. Daughter is available to help over the weekend. 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 She has an adjustable bed without rail. M2 OT-IP Current Condition Start: 02/28/23 11:44 Freq: Status: Active Protocol: Document 02/28/23 08:45 [facility] (Rec: 02/28/23 11:59 [facility] [id number]) Occupational Therapy Current Condition Current Condition Evaluation Date 02/28/23 Treatment Diagnosis Diarrhea, weakness M3 OT- IP Subjective and Pain Start: 02/28/23 11:44 Freq: Status: Active Protocol: Document 02/28/23 08:45 [facility] (Rec: 02/28/23 11:59 [facility] [id number]) OT- Subjective Occupational Therapy Visit Type Type Initial Evaluation Visit Start Time 08:45 Visit Stop Time 09:31 Total Visit Minutes 46 Occupational Therapy Visit Comments Patient Comments Pt agreed to get up. Patient/Caregiver Goals To go home. OT Pain Assessment Pain When Pain Assessed At Rest Pain Present Pain Present Denied Pain M4 OT- IP ADL's Start: 02/28/23 11:44 Freq: Status: Active Protocol: Document 02/28/23 08:45 [facility] (Rec: 02/28/23 11:59 [facility] [id number]) OT TBC-Csks-Iioobqf General Evaluation Self-Feeding Ability Independent OT ADL-Grooming General Evaluation Grooming Ability Independent OT ADL-Oral Care General Eval Oral Care Ability Independent OT ADL-Dressing General Eval Lower Body Dressing Ability Independent,Minimal Assistance Comments OT Dressing Comments Pt able to get her right compression stocking on with her stocking itzel but getting tired and therapist able to assist with her left foot over the heel. OT ADL-Toileting General Evaluation Toileting Ability Independent OT ADL-Bathing Comments OT Bathing Comments Pt states just wanting to go home. M5 OT- IP IADL's Start: 02/28/23 11:44 Freq: Status: Active Protocol: Document 02/28/23 08:45 [facility] (Rec: 02/28/23 11:59 [facility] [id number]) OT-Instrumental Activities of Daily Living Deficits IADL Deficits Identified Deficits Home Safety Awareness Awareness of Need for Assistance at Home Good Awareness Ability to Problem Solve Emergency Able to Problem Solve Situations Home Safety Comments Pt aware that she is a little weaker at this time and that she has assist at home from her daughter and caregivers to assist. M6 OT- IP Functional Cognition Start: 02/28/23 11:44 Freq: Status: Active Protocol: Document 02/28/23 08:45 [facility] (Rec: 02/28/23 11:59 [facility] [id number]) Cognitive Factors Limiting Selfcare Function Cognitive Ability Level of Alertness Alert Patient Orientation Name,Age,Birthday,Month,Date, Year,Day of Week,Place, Situation Attention Span Ability Capable of Focused Attention, Capable of Sustained Attention Ability to Follow Commands Able to Follow Multi-Step Commands Memory Description No Deficits Noted Safety Awareness No Deficits Noted Cognitive Comments Cognitive Assessment Comments Intact, pt needing reminders to take her time and try to delegate tasks instead of doing everything on her own. Educated pt on energy conservation strategies. OT- Vision and Hearing OT- Hearing Assessment OT- Hearing Assessment WFL OT- Vision Assessment Visual Attentiveness WFL Occular Pursuits WFL Visual Convergence WFL Visual Portillo WFL Vision Assessment Comments Pt states to get her eyes rechecked soon. M7 OT- IP Mobility and Balance Start: 02/28/23 11:44 Freq: Status: Active Protocol: Document 02/28/23 08:45 [facility] (Rec: 02/28/23 11:59 [facility] [id number]) OT- Bed Mobility Assessment Rolling Level of Assistance Independent Supine to Sit Supine to Sit Assist Independent Sit to Supine Sit to Supine Assist Independent Scooting Scooting to Edge of Bed Independent OT-Transfer Assessment Sit to and From Stand Sit to and from Stand Independent Transfers Transfer Ability Independent,Standby Assistance Technique Transfer Destination Bed,Toilet Transfer Technique Stand Step Pivot Devices Transfer Assistive Devices Gait Belt Comments Mobility Comments Pt independent with bed mobility needs and needing occasional touch on surfaces for steadying as going too fast per pt around the garbage can while walking out from the bathroom. OT- Balance Assessment Sitting Balance and Reactions Static Sitting Balance Ability Normal Dynamic Sitting Balance Ability Normal Standing Balance and Reactions Static Standing Balance Ability Normal Dynamic Standing Balance Ability Fair M8 OT- IP Objective Assessments Start: 02/28/23 11:44 Freq: Status: Active Protocol: Document 02/28/23 08:45 [facility] (Rec: 02/28/23 11:59 [facility] [id number]) OT Gross Range of Motion Upper Extremity Range of Motion Assessment Within Functional Limits OT Strength Comments Strength Comments BUE 4/5 throughout, pt is right handed. OT- Coordination Assessment Upper Extremity Finger to Nose Test Within Functional Limits M9 OT- IP Assessment and Plan Start: 02/28/23 11:44 Freq: Status: Active Protocol: Document 02/28/23 08:45 [facility] (Rec: 02/28/23 11:59 [facility] [id number]) OT Summary Assessment and Plan Potential Rehabilitation Potential Excellent Analytic Complexity at Evaluation Low Summary OT Impairments Balance,Functional Mobility, Activity Tolerance Progress Towards Goals Progressing Toward Goals Assessment Summary Pt low complexity and main barriers are decreased activity tolerance and high level dynamic balance. Pt would greatly benefit from increased caregiving hours for her and to assist her with IADl needs as needed. Pt to go home when medically stable. Goals Bathing Goal Independent Patient/Caregiver Education Goal Demonstrate Energy Conservation and Pacing Days to Meet Goals 2 Frequency of Treatment Frequency Of Treatment Once a Day Treatment Plan OT Treatment Plan ADL Training,Functional Mobility,Patient/Family Education,Discharge Planning Discharge Recommendations OT Discharge Recommendations Home with Assistance Transportation Needs at Discharge Private Vehicle
[2023-02-28] MEDS: POTASSIUM CHLORIDE 20 MEQ TAB 40 MEQ PO (10:24)
--- NOTE | 2023-02-28 10:34 | CM.DPNOTE ---
Addendum entered by Georgina Ag R.N. 02/28/23 11:31: It is noted that patient passed P.T. Merly at [facility] had follow up, let her know about recent P.T. and she indicated that her insurance most likely will not pay for skilled, as she did too well with therapy. Plan at this time is home. Original Note: DCP Cont: Discussed patient during team rounds. hospitalist feels that she is medically ready for discharge today. Patient wants to go home. P.T. is working with her. This DC met with patient. Stated, I don't want to go to halfway, I want to be home with my . She indicated that she has a couple of neighbors that are retired RNs, that have been able to help her out, especially with her . Asked her about home health, she is not sure. She still needs to work with P.T. Chey at [facility] is willing to review. She confirmed that they do take her insurance. Will fax her referral, her fax numbe is: [phone], in case patient does not pass P.T. P: DCP to continue to follow. Plan is most likely home, but will fax [facility] as back up. Georgina Ag RN/Corporate Compliance Officer
[2023-02-28] MEDS: MAGNESIUM CHLORIDE 64 MG TABLET 128 MG PO (10:35)
--- NOTE | 2023-02-28 10:42 | PC.NURSE ---
Patient is alert and oriented x4 this morning. When asked about confusion yesterday, patient denies having any and seems to be in denial about this. Patient would not allow staff to administer her Lovenox injection, she wanted to do it herself. She has been doing this at home for a while now, and she did do proper technique. She was also due for some oral potassium which she took and oral magnesium. Patient statesMy primary doctor put me on Mag and this is what is making me have lose stools. Patient did take the medication as it was a one time order. Explained to patient that her levels were a bit low. She may go home today. PT and OT both worked with patient. She is moving well.
--- NOTE | 2023-02-28 10:55 | DIET.CONS ---
Dietary Consultation Note Admission Date: 02/27/2023 03:52 Assessment: RD consulted for BMI of 22.6. Attempted to see pt but she is working with PT currently. BMI low for age <23 5.9% weight loss over 5 months. Admitted with electrolyte imbalances and intractable diarrhea. Endorses poor appetite. Likely qualifies for moderate malnutrition dx. will try to see pt again this afternoon if not d/c'd Ht: 167.64 cm Wt: 65.1 kg BMI: 23.1 UBW: Last BM: 02/26/23 (02/27/23 11:50) MNA: 12 Wilfred Score: 22 Diet: 02/27/23 Breakfast Heart Healthy Diet Diet Modifications: Nutrition Percent Meal Consumed 100% 02/27/23 18:00 Percent Meal Consumed 100% 02/27/23 13:37 Percent Meal Consumed 100% 02/27/23 10:00 Labs: RBC 3.04 X10^6/uL (4.0-5.2) L 02/28/23 05:14 Hgb 9.4 g/dL (12.0-16.0) L 02/28/23 05:14 Hct 27.2 % (36-46) L 02/28/23 05:14 Creatinine 0.72 mg/dL (0.52-1.04) 02/28/23 05:14 Lactate 0.7 mmol/L (0.7-2.1) 02/27/23 06:12 NT-Pro-B Natriuret Pep 1740 pg/mL (<450) H 02/27/23 06:12 Electronically Signed by: Sophia Rosales 02/28/23 10:55 Clinical Dietitian [address] [address]
--- NOTE | 2023-02-28 11:19 | PT.IIE ---
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) Essential hypertension History of thyroid nodule Hyperlipidemia Hypertension (~2010) Lymphedema of both lower extremities Malignant neoplasm of endometrium (~2006) Measles (~1943) Mumps (~1943) Myocardial infarction (~06/2019) Osteoporosis Paronychia of finger of right hand Port-A-Cath in place Sepsis Systolic heart failure secondary to coronary artery disease (~06/29/19) Takotsubo cardiomyopathy (~06/2019) Trigger finger, left ring finger Vision abnormalities Weight loss Physical Therapy Inpatient Evaluation/Re-Eval M1 PT/OT-IP Prior Functional Status Start: 02/28/23 11:09 Freq: NEEDED Status: Active Protocol: Document 02/28/23 11:09 ES (Rec: 02/28/23 11:19 ES [id number]) Medical Review Prior Functional Status Medical History Reviewed Yes Diet/Fluid Consistency Regular Communication WFL Mobility and Gait Indep without AD for community distances. Activities of Daily Living and IADL's Indep Prior Functional Level (Other details) Provides caregiving for ill . Social History Household Members spouse Living Arrangements House Number of Floors (Floors) One Floor Number of Stairs To Enter/Railing? 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 She provides caregiving for her who is recovering from cancer surgery. They have in-home caregivers who are currently on vacation and will be back on Friday. Daughter is available to help over the weekend. 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 She has an adjustable bed without rail. M2 PT-IP Current Condition Start: 02/28/23 11:09 Freq: NEEDED Status: Active Protocol: Document 02/28/23 11:09 ES (Rec: 02/28/23 11:19 ES [id number]) Physical Therapy Current Condition Current Condition Evaluation Date 02/28/23 Treatment Diagnosis Diarrhea, dehydration, RICH, weakness Onset Date 02/27/23 M3 PT-IP Subjective Start: 02/28/23 11:09 Freq: NEEDED Status: Active Protocol: Document 02/28/23 11:09 ES (Rec: 02/28/23 11:19 ES [id number]) Subjective Physical Therapy Visit Type Type Initial Evaluation Visit Start Time 10:18 Visit Stop Time 10:40 Total Visit Minutes 22 Physical Therapy Visit Comments Patient Comments Patient reported feeling better today, agreeable to work with therapy. Anxious to get home to her who is currently home alone. Therapy Pain Assessment Pain Present Pain Present Denied Pain M4 PT-IP Mobility and Gait Start: 02/28/23 11:09 Freq: NEEDED Status: Active Protocol: Document 02/28/23 11:09 ES (Rec: 02/28/23 11:19 ES [id number]) PT-Bed Mobility Assessment Supine to Sit Supine to Sit Independent,Head of Bed Elevated Sit to Supine Sit to Supine Independent,Head of Bed Elevated Scooting Scooting to Edge of Bed Independent Scooting Up and Down in Bed Independent PT-Transfer Assessment Sit to and From Stand Sit to and from Stand Independent Equipment Transfer Assistive Device None Orthotic/Prosthetic Devices or Brace: No Transfers Transfer Destination Toilet Transfer Technique Ambulation Transfer Ability Level of Assist Independent Comments Mobility Comments No LOB with navigating around room/bathroom. Patient denied lightheadedness/dizziness throughout. Gait Assessment Gait Gait Assistance Required: Independent Distance (Feet) 250 Assistive Devices Assistive Device None Orthotic/Prosthetic Devices or Brace: No Gait Deviations General Gait Pattern Within Normal Limits Comments Gait Comments Decreased gait speed. One instance of bumping shoulder on corner when turning without LOB. Stair Climbing Assessment Evaluation Level of Assist On Stairs Independent Devices Stair Climbing Assistive Devices Right Railing Technique/Endurance Stair Climbing Direction Ascend and Descend Stair Climbing Technique Step Over Step,Step to Step Number of Steps Climbed 3 Query Text: Stair Climbing Set # Repetitions (reps) 1 Comments Stair Climbing Comments Step over step for ascending, step-to for descending. PT-Balance Assessment Sitting Balance and Reactions Static Sitting Balance Ability Normal Dynamic Sitting Balance Ability Normal Standing Balance and Reactions Static Standing Balance Ability Good Dynamic Standing Balance Ability Good Device Used None M5 PT-IP Objective Assessments Start: 02/28/23 11:09 Freq: NEEDED Status: Active Protocol: Document 02/28/23 11:09 ES (Rec: 02/28/23 11:19 ES [id number]) Orientation Orientation/Cognition Level of Alertness Alert Orientation Name,Age,Birthday,Month,Date, Year,Day of Week,Place, Situation Language Function Ability No Deficits Noted Safety Awareness Understands Safety Issues Memory Description No Deficits Noted Gross Range of Motion Upper Extremity ROM Assessment Within Functional Limits Lower Extremity ROM Assessment Within Functional Limits Strength Upper Extremity Strength Assessment Within Functional Limits Lower Extremity Strength Assessment Within Functional Limits Coordination Assessment Gross Coordination Gross Coordination WNL Other Assessments Other Other Assessments Moderate to severe swelling in BLE's, wearing full-length compression garments. M7 PT-IP Assessment and Plan Start: 02/28/23 11:09 Freq: NEEDED Status: Active Protocol: Document 02/28/23 11:09 ES (Rec: 02/28/23 11:19 ES [id number]) PT Summary Assessment and Plan Summary Assessment Summary Patient is a 82 year old female who presents at her baseline functional level. She was independent with all mobility tasks without AD and no LOB. She is safe to d/c home at this time; recommended she have increased assistance in the home to reduce her caregiver burden for her own health, and patient demonstrated good understanding. Case management to provide resources. Frequency of Treatment Frequency Of Treatment Discharge Recommendations To Nursing Amount of Assist Needed Independent Discharge Recommendations PT Discharge Recommendations Home with Assistance Transportation Needs at Discharge Private Vehicle
[2023-02-28 12:00] VITALS: BP 116/58; PULSE 86; RESP 17; TEMP 36.2; O2SAT 97
--- NOTE | 2023-02-28 12:11 | P.DS_ITS ---
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 The patient states that she is had a poor appetite and her last diarrhea was yesterday afternoon had started bentyl as prescribed by her pcp . In ED patient was found to be severely dehydrated low sodium, low potassium and low magnesium. It is of note that the patient also is caring for her spouse who underwent major surgery for anal cancer and continues to require in-home caretakers who are currently on vacation for the week. On admit patient denies chest pain, shortness in breath, headache, changes in vision, difficulty swallowing, speech impairment, numbness, tingling, difficulty with ambulation, recent falls, head injury, LOC, fever, body aches, chills, cough, recent exposure to illness, nausea, vomiting, urinary incontinenc e/retention, dysuria, frequency, urgency, hematuria, constipation, incontinence, melena, rashes, recent changes to medication or antibiotics, injury, or trauma. Patient is alert and oriented, and provides a good history, vital signs are stable temp 98.2?, BP 132/68, 85, 25, 95%. Patient has no white count, sodium 128, potassium 3.2, chloride 90, creatinine 1.12, glucose 144, magnesium 1.4, GFR 50, procalcitonin 5.86, lactate normal, respiratory panel is negative, urinalysis is negative, troponin initial 0.036, chest x-ray is negative for any acute cardiopulmonary process. Patient admitted for intractable diarrhea resulting in dehydration with mild RICH, hyponatremia, hypokalemia, hypomagn esium. Discharge Providers Provider Date of admission: 02/27/23 03:52 Discharge Date: 02/28/23 Primary care physician: ABEL Martinez Consults: 02/27/23 02:52 Consult to Dietitian, Adult Routine Comment: Reason For Exam: bmi 22.6 Consult to Occupational Therapy Evaluate & Treat Comment: weakness Physician Instructions: Evaluate and treat Consult to Physical Therapy Evaluate & Treat Comment: weakness Physician Instructions: Evaluate and Treat Discharge provider: Leif Adan, Summary Hospital Course Discharge Diagnosis: 1. Intractable diarrhea leading to severe dehydration, acute, present on admission -resulting in hyponatremia, hypokalemia, hypomagnesia -unknown etiology -potassium 3.2:? Potassium 20 mEq oral and 20 mEq IV given in ED. -sodium 128:? 1 L bolus NS given in ED, continue NS at 80 cc/HR x5 hours -Mag 1.4:? Ordered 2 g rider -loperamide 4 mg to be given after initial diarrhea, repeat 2 mg after each diarrhea with a max of 16mg/day -stool PCR and cultures negative -patient will continue home antidiarrheal meds 2. RICH, mild, acute secondary to dehydration from diarrhea, resolved Initial creatinine 1.12, previous 0.99, initial GFR 50, previous 58 -rehydrate and monitor renal function -avoid nephrotoxic medication -Cr normalized with fluids 3. Endometrial cancer, stage IV, acute on chronic, present on admission -continue anastrozole 4. Chronic atrial fibrillation on chronic anticoagulation, chronic, present on admission -continue Lovenox 5. Systolic heart failure secondary to coronary artery disease, chronic, present on admission -continue carvedilol, irbesartan -troponin 0.036, repeat in a.m. -last echo 2019 EF of 55-60% 6. Chronic pain with opiate dependence secondary to neoplastic disease, chronic, present on admission -continue Oxy, gabapentin 7. 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 GERD, chronic, present on admission -continue omeprazole 9. Malnutrition, mild, acute on chronic, likely secondary to metastatic disease present on admission -BMI 22.6 -patient's malnutrition places them at high risk for medical and surgical complications in relation to acute illness/chronic illness.? This increases the difficulty in complexity of medical management and increases the chances poor outcomes such as mortality and morbidity as well as impaired wound healing, and immune suppression. -dietary consult ordered to evaluate and implement steps to improve caloric intake and nutrition. Hospital Course: Admitted for RICH from GI losses due to diarrhea. Improved with IVF. PT/OT cleared for home with . Time Spent with Patient Time spent: Greater than 30 minutes Exam Vital Signs (past 8 hours): - 02/28/23 06:00 02/28/23 08:31 Temperature 97.7 F 98.3 F Pulse Rate 84 86 Respiratory Rate 13 22 Blood Pressure 121/57 L 113/62 Pulse Oximetry 90 L 95 Oxygen Flow Rate 0 Oxygen Delivery Method Room Air Oxygen Flow Rate 0 Narrative Exam Narrative: General: Patient is a frail thin chronically ill-appearing female in no distress at this time. HEENT: Normocephalic, atraumatic, extraocular muscles intact, oral pharynx is clear and mucous membranes are very dry. Neck is supple and symmetric, trachea is midline, no adenopathy, no thyroid enlargement, nontender, no masses palpat ed. Negative for JVD Chest: Breathing with no nasal flaring, retractions, tachypneic or labored Lungs: Auscultation of all lung valdes are clear without adventitious sounds, wheezes, rhonchi, or rales. Cardio: regular rate and rhythm without murmur, rubs, or gallops, no carotid bruit, no cardiac pulsations present. Abdomen: Soft nontender, negative for organomegaly, or masses. Bowel sounds are hypoactive present in all 4 quadrants without guarding or rebound, no CVA tenderness. Musculoskeletal: Muscle strength and tone are equal, significant weakness/deconditioning, no deformity, crepitus, effusions, cyanosis, clubbing, bilateral LE edema, noted warmth erythema to dorsal side of the left foot, non tender, no open skin. Full range of motion intact radial and pedal pulses are normal. Skin: Warm dry and intact without rashes, ulcerations or petechiae. Neuro: Alert and orientated x3 moves all extremities, sensation to touch intact, no gross deficits noted of cranial nerves. Psych: Patient has a well-kept appearance, appropriate affect. Objective Labs 02/28/23 05:14 02/28/23 05:14 Labs: Laboratory Results - last 24 hr 02/26/23 02/27/23 02/28/23 21:10 10:19 05:14 WBC RBC Hgb Hct MCV MCH MCHC RDW Plt Count Neut % (Auto) Lymph % (Auto) Billings % (Auto) Eos % (Auto) Baso % (Auto) Neut # (Auto) Lymph # (Auto) Billings # (Auto) Eos # (Auto) Baso # (Auto) Sodium Potassium Chloride Carbon Dioxide BUN Creatinine Estimated GFR BUN/Creatinine Ratio Glucose Calcium Magnesium 1.8 Total Bilirubin AST ALT Alkaline Phosphatase Total Protein Albumin Globulin Albumin/Globulin Ratio Procalcitonin Stl C. cayetanensis PCR Not detected Stool Rotavirus (PCR) Not detected Stool Adenovirus (PCR) Not detected Stool Astrovirus (PCR) Not detected Stool Cryptosporidium PCR Not detected Stl E.coli Shiga Tox PCR Not detected St Sh/Enteroin Ecoli PCR Not detected Stool E coli O157 PCR Not Reportable Stl Enterotoxigenic E PCR Not detected Stool EPEC (PCR) Not detected Stl E. histolytica PCR Not detected Stool Giardia Lamblia PCR Not detected Stool Sapovirus (PCR) Not detected Stl P. shigelloides PCR Not detected St Y.enterocolitica PCR Not detected Stool Vibrio (PCR) Not detected Stl Vibrio cholerae PCR Not detected Stl Enteroaggr Ecoli PCR Not detected Stl Norovirus GI/GII PCR Not detected A.calcoaceticus-baumannii cmplx PCR Not detected Bacteroides fragilis Not detected Campylobacter (PCR) Not detected Berta albicans (PCR) Not detected Berta auris (PCR) Not detected C. glabrata (PCR) Not detected C. krusei (PCR) Not detected C. parapsilosis (PCR) Not detected C. tropicalis (PCR) Not detected C. difficile Tox (PCR) Not detected C. neoform/gattii (PCR) Not detected Enterobacterales (PCR) Not detected E. cloacae complex PCR Not detected Enterococc faecalis PCR Not detected Enterococc faecium PCR Not detected E. coli (PCR) Not detected H. influenzae (PCR) Not detected Klebsiella aerogenes (PCR) Not detected Klebsiella oxytoca PCR Not detected Klebsiella pneumoniae Not detected List. monocytogenes PCR Not detected N. meningitidis (PCR) Not detected Proteus species (PCR) Not detected Salmonella (PCR) Not detected Salmonella spp. (PCR) Not detected Serratia marcescens PCR Not detected Staphylococcus sp PCR Not detected Staph aureus (PCR) Not detected Staph epidermidis (PCR) Not detected Staph lugdunensis PCR Not detected S. maltophilia (PCR) Not detected Streptococcus sp PCR Detected H Group A Strep (PCR) Not detected Strep agalactiae (PCR) Not detected Strep pneumoniae (PCR) Not detected P. aeruginosa (PCR) Not detected 02/28/23 02/28/23 02/28/23 05:14 05:14 05:14 WBC 5.6 RBC 3.04 L Hgb 9.4 L Hct 27.2 L MCV 89.3 MCH 31.0 MCHC 34.6 RDW 14.0 Plt Count 150 Neut % (Auto) 84.0 H Lymph % (Auto) 11.2 L Billings % (Auto) 4.1 Eos % (Auto) 0.5 L Baso % (Auto) 0.2 Neut # (Auto) 4700 Lymph # (Auto) 600 L Billings # (Auto) 200 Eos # (Auto) 0 Baso # (Auto) 0 Sodium 130 L Potassium 3.4 Chloride 101 Carbon Dioxide 27 BUN 12 Creatinine 0.72 Estimated GFR > 60 BUN/Creatinine Ratio 16.7 Glucose 99 Calcium 7.3 L Magnesium Total Bilirubin 0.2 AST 16 ALT 18 Alkaline Phosphatase 41 Total Protein 4.9 L Albumin 2.5 L Globulin 2.4 Albumin/Globulin Ratio 1.0 Procalcitonin 3.73 H Stl C. cayetanensis PCR Stool Rotavirus (PCR) Stool Adenovirus (PCR) Stool Astrovirus (PCR) Stool Cryptosporidium PCR Stl E.coli Shiga Tox PCR St Sh/Enteroin Ecoli PCR Stool E coli O157 PCR Stl Enterotoxigenic E PCR Stool EPEC (PCR) Stl E. histolytica PCR Stool Giardia Lamblia PCR Stool Sapovirus (PCR) Stl P. shigelloides PCR St Y.enterocolitica PCR Stool Vibrio (PCR) Stl Vibrio cholerae PCR Stl Enteroaggr Ecoli PCR Stl Norovirus GI/GII PCR A.calcoaceticus-baumannii cmplx PCR Bacteroides fragilis Campylobacter (PCR) Berta albicans (PCR) Berta auris (PCR) C. glabrata (PCR) C. krusei (PCR) C. parapsilosis (PCR) C. tropicalis (PCR) C. difficile Tox (PCR) C. neoform/gattii (PCR) Enterobacterales (PCR) E. cloacae complex PCR Enterococc faecalis PCR Enterococc faecium PCR E. coli (PCR) H. influenzae (PCR) Klebsiella aerogenes (PCR) Klebsiella oxytoca PCR Klebsiella pneumoniae List. monocytogenes PCR N. meningitidis (PCR) Proteus species (PCR) Salmonella (PCR) Salmonella spp. (PCR) Serratia marcescens PCR Staphylococcus sp PCR Staph aureus (PCR) Staph epidermidis (PCR) Staph lugdunensis PCR S. maltophilia (PCR) Streptococcus sp PCR Group A Strep (PCR) Strep agalactiae (PCR) Strep pneumoniae (PCR) P. aeruginosa (PCR) PFSH Medical History (Updated 02/27/23 @ 05:05 by DAGMAR Lipscomb-NEETA) Abdominal muscle pain Adverse reaction to statin medication Cellulitis and abscess of leg Chickenpox Chronic cough (~2014) Chronic neoplasm-related pain Chronic pain of both lower extremities (01/22/18) Colon polyps (~2011) Continuous opioid dependence 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) Essential hypertension History of thyroid nodule Hyperlipidemia Hypertension (~2010) Lymphedema of both lower extremities Malignant neoplasm of endometrium (~2006) Measles (~1943) Mumps (~1943) Myocardial infarction (~06/2019) Osteoporosis Paronychia of finger of right hand Port-A-Cath in place Sepsis Systolic heart failure secondary to coronary artery disease (~06/29/19) Takotsubo cardiomyopathy (~06/2019) Trigger finger, left ring finger Vision abnormalities Weight loss Surgical History Status post breast biopsy (~1967) Status post hysterectomy (~2006) Status post tubal ligation (~1988) Social History household members: spouse Smoking Status: Never smoker alcohol intake: never Discharge Plan Discharge Plan Patient Disposition: Home Provider Discharge Comment: You were admitted for dehydration from acute diarrhea which improved with IV fluids. Your stool test was negative for any infection in your gut. Continue your anti-diarrhea meds. Discharge orders & Medications Prescriptions: Continued dicyclomine 20 mg tablet See Rx Instructions .ROUTE .COMPLEX Qty: 60 3RF Dose Instruction: TAKE 1 TABLET BY MOUTH DAILY, INCREASE TO TWICE DAILY IF DIARRHEA PERSISTS, HOLD IF NO BOWEL MOVEMENT IN 2 DAYS Rx Instructions: TAKE 1 TABLET BY MOUTH DAILY, INCREASE TO TWICE DAILY IF DIARRHEA PERSISTS, HOLD IF NO BOWEL MOVEMENT IN 2 DAYS Disabled Parking Permit See Rx Instructions .ROUTE .COMPLEX Qty: 1 0RF Rx Instructions: I find this patient to be medically disabled and qualify for disabled parking as indicated and signed on the accompanying disabled parking application for individuals. oxycodone [OxyContin] 10 mg tablet,oral only,ext.rel.12 hr 10 mg PO BID Qty: 60 0RF Rx Instructions: EXEMPT oxycodone 5 mg tablet 5 mg PO Q4H PRN (Reason: pain) Qty: 180 0RF Rx Instructions: EXEMPT for malignant pain. temazepam 7.5 mg capsule 15 mg PO BEDTIME PRN (Reason: sleep) Qty: 180 3RF Rx Instructions: Take 2 tabs at bedtime daily for insomnia as needed (DME) Compression Garments See Rx Instructions .Route .MEDSUPPLY Qty: 1 0RF Rx Instructions: Jobst thigh high, beige, size Medium, closed toe and heel, silcone dots duloxetine 60 mg capsule,delayed release(DR/EC) 60 mg PO BID Qty: 180 3RF Rx Instructions: Take 1 capsule twice per day irbesartan 300 mg tablet See Rx Instructions .ROUTE .COMPLEX Qty: 90 3RF Dose Instruction: TAKE 1 TABLET DAILY Rx Instructions: TAKE 1 TABLET DAILY mirtazapine 45 mg tablet 45 mg PO BEDTIME Qty: 90 3RF omeprazole 20 mg capsule,delayed release(DR/EC) 20 mg PO QDAY PRN (Reason: acid reflux) Qty: 90 3RF anastrozole 1 mg tablet 1 mg PO DAILY niacin 1,000 mg tablet extended release 24 hr 1,000 mg PO BEDTIME Qty: 90 3RF Rx Instructions: Take 1 tab at bedtime daily enoxaparin [Lovenox] 100 mg/mL syringe 100 mg SUBCUT QAM Follow up/Referrals: Susie Reveles ARNP [Primary Care Provider] - 2 Weeks Visit Report/Discharge Packet Instructions: Diarrhea, DI for Dehydration -- Adult, DI for Hypokalemia Stand Alone Forms: Patient Portal/API, Stroke Signs & Symptoms Discharge Data Primary Care Provider: Susie Reveles Discharges patient from system. Discharge Date/Time: 02/28/23 13:40
[2023-03-05 14:09] LABS: H. Pylori Antigen Stool Negative (Negative)
== END 2023-02-28 13:40 | disposition home or self-care (01) | DRG 641 ==
LOC: ED 02-27 02:16 → AC 02-27 05:13
PROVIDERS: Student in an Organized Health Care Education/Training Program; Admitting Provider Nurse Practitioner Family; Emergency Provider Emergency Medicine; PCP Nurse Practitioner; Visit Provider Nurse Practitioner Family
DX: E86.0 Dehydration (principal); N17.9 Acute kidney failure, unspecified; I48.20 Chronic atrial fibrillation, unspecified; I50.22 Chronic systolic (congestive) heart failure; F11.20 Opioid dependence, uncomplicated; E44.1 Mild protein-calorie malnutrition; R19.7 Diarrhea, unspecified; C54.1 Malignant neoplasm of endometrium; I25.10 Atherosclerotic heart disease of native coronary artery without angina pectoris; G89.3 Neoplasm related pain (acute) (chronic); F32.A Depression, unspecified; F41.9 Anxiety disorder, unspecified; K21.9 Gastro-esophageal reflux disease without esophagitis; E87.1 Hypo-osmolality and hyponatremia; E87.6 Hypokalemia; E83.42 Hypomagnesemia; I11.0 Hypertensive heart disease with heart failure; Z79.01 Long term (current) use of anticoagulants; Z20.822 Contact with and (suspected) exposure to COVID-19; Z68.22 Body mass index [BMI] 22.0-22.9, adult
CPT/HCPCS: 36415; 51701; 71045; 80053; 81001; 83605; 83690; 83735; 83880; 84145; 84484; 85025; 85610; 87040; 87077; 87154; 87177; 87186; 87205; 87338; 87507; 87633; 93005; 96361; 96365; 96366; 96367; 96368; 96372; 97161; 97165; 97530; 99284; G0378; J0696; J1650; J3475

== ENCOUNTER → 2023-03-14 16:51 | Outpatient (CLI) | payer MEDICARE, OTHER, SELFPAY ==
[2023-02-27 11:50] VITALS: BMI 23.1
[2023-03-14 17:51] LABS: BUN Creatinine Ratio 16.5 (6-22); Blood Urea Nitrogen 16 mg/dL (7-17); Calcium 8.6 mg/dL (8.4-10.2); Carbon Dioxide 35 mmol/L (22-32); Chloride 99 mmol/L (98-107); Estimated Glomerular Filt Rate 59 mL/min (>60); Glucose 111 mg/dL (80-110); HEMOLYSIS 35 (0-50); Potassium 3.7 mmol/L (3.4-5.1); Sodium 136 mmol/L (137-145)
== END ==
PROVIDERS: PCP Nurse Practitioner; Referring Provider Family Medicine; Visit Provider Family Medicine
DX: E87.1 Hypo-osmolality and hyponatremia (principal)
CPT/HCPCS: 36415; 80048

== ENCOUNTER → 2023-07-25 14:55 | Outpatient (CLI) | payer MEDICARE, OTHER, SELFPAY ==
[2023-02-27 11:50] VITALS: BMI 23.1
[2023-07-25 16:30] LABS: Add Manual Diff / Slide Review NO; Basophils Absolute Auto 0 /uL (0-100); Eosinophils Absolute Auto 100 /uL (0-450); Eosinophils Percent Auto 2.1 % (2-4); Hematocrit 35.2 % (36-46); Hemoglobin 11.8 g/dL (12.0-16.0); Lymphocytes Absolute Auto 1300 /uL (1100-4500); Lymphocytes Percent Auto 36.6 % (25-40); Mean Corpuscular HGB Conc 33.6 % (30-36); Mean Corpuscular Hemoglobin 31.3 PG (26-34); Mean Corpuscular Volume 93.2 fL (80-100); Monocytes Absolute Auto 300 /uL (0-900); Monocytes Percent Auto 8.9 % (3-14); Neutrophils Absolute Auto 1800 /uL (1500-7000); Neutrophils Percent Auto 51.4 % (50-75); Platelet Count 179 X10^3/uL (150-400); Red Blood Cell Count 3.77 X10^6/uL (4.0-5.2); Red Cell Distribution Width 13.4 % (11.6-14.8); White Blood Cell Count 3.6 X10^3/uL (4.5-11.0)
[2023-07-25 16:48] LABS: Alanine Aminotransferase 15 IU/L (<35); Albumin 3.3 g/dL (3.5-5.0); Albumin Globulin Ratio 1.6 (1.0-2.8); Alkaline Phosphatase 40 U/L (38-126); Aspartate Aminotransferase 20 IU/L (14-36); BUN Creatinine Ratio 15.8 (6-22); Bilirubin Total 0.3 mg/dL (0.2-1.3); Blood Urea Nitrogen 15 mg/dL (7-17); Calcium 9.1 mg/dL (8.4-10.2); Carbon Dioxide 35 mmol/L (22-32); Chloride 94 mmol/L (98-107); Estimated Glomerular Filt Rate > 60 mL/min (>60); Globulin 2.1 g/dL (1.7-4.1); Glucose 97 mg/dL (80-110); HEMOLYSIS < 15 (0-50); Potassium 4.1 mmol/L (3.4-5.1); Sodium 130 mmol/L (137-145); Total Protein 5.4 g/dL (6.3-8.2)
[2023-07-25 16:55] LABS: Prealbumin 23.7 mg/dL (17.6-36.0)
== END ==
PROVIDERS: PCP Nurse Practitioner; Referring Provider Family Medicine; Visit Provider Family Medicine
DX: I10 Essential (primary) hypertension (principal); I89.0 Lymphedema, not elsewhere classified; C54.1 Malignant neoplasm of endometrium
CPT/HCPCS: 36415; 80053; 84134; 85025

== ENCOUNTER → 2023-08-27 15:05 | Outpatient (CLI) | payer MEDICARE, OTHER, SELFPAY ==
[2023-02-27 11:50] VITALS: BMI 23.1
--- NOTE | 2023-08-27 | DI.MG.S_ITS ---
BILATERAL DIGITAL SCREENING MAMMOGRAM 3D/2D WITH CAD: 08/27/2023 CLINICAL: Routine screening. Family history of breast cancer. Comparison is made to exams dated: 07/18/2022 mammogram, 03/14/2021 mammogram, and 09/01/2018 mammogram - [facility]. Both breasts are heterogeneously dense, which may obscure small masses (category c / 51-75% glandular tissue). Current study was also evaluated with a Computer Aided Detection (CAD) system. There are benign vascular calcifications in both breasts. No significant masses, calcifications, or other findings are seen in either breast. There has been no significant interval change. IMPRESSION: BENIGN There is no mammographic evidence of malignancy. A 1 year screening mammogram is recommended. Based on the Tyrer Cuzick model (a risk assessment model) the patient's lifetime risk is 1.4% and her 10 year risk is 0.0%. According to the ACR, ACS, and NCCN guidelines, an annual breast MRI exam along with mammogram is recommended if the patient's lifetime risk is 20% or greater. This exam was interpreted at Station ID: [id number]. NOTE: For mammograms, a report in lay terms will be sent to the patient. Approximately 15% of breast malignancies will not be visualized mammographically. In the management of a palpable breast mass, a negative mammogram must not discourage biopsy of a clinically suspicious lesion. Electronically Signed By: Keara lewis/messi:08/28/2023 11:09:20 letter sent: Normal Exam ACR BI-RADS Category 2: Benign Finding(s) [id number]
== END ==
PROVIDERS: PCP Nurse Practitioner; Referring Provider Nurse Practitioner; Visit Provider Nurse Practitioner
DX: Z12.31 Encounter for screening mammogram for malignant neoplasm of breast (principal); Z80.3 Family history of malignant neoplasm of breast
CPT/HCPCS: 77063; 77067

== ENCOUNTER → 2023-09-08 14:17 | Outpatient (CLI) | payer MEDICARE, OTHER, SELFPAY ==
[2023-02-27 11:50] VITALS: BMI 23.1
[2023-09-08 17:08] LABS: Alanine Aminotransferase 18 IU/L (<35); Albumin 3.3 g/dL (3.5-5.0); Albumin Globulin Ratio 1.4 (1.0-2.8); Alkaline Phosphatase 51 U/L (38-126); Aspartate Aminotransferase 25 IU/L (14-36); BUN Creatinine Ratio 15.2 (6-22); Bilirubin Total 0.3 mg/dL (0.2-1.3); Blood Urea Nitrogen 12 mg/dL (7-17); Calcium 9.3 mg/dL (8.4-10.2); Carbon Dioxide 35 mmol/L (22-32); Chloride 96 mmol/L (98-107); Estimated Glomerular Filt Rate > 60 mL/min (>60); Globulin 2.3 g/dL (1.7-4.1); Glucose 82 mg/dL (80-110); HEMOLYSIS < 15 (0-50); Potassium 4.2 mmol/L (3.4-5.1); Sodium 134 mmol/L (137-145); Total Protein 5.6 g/dL (6.3-8.2)
== END ==
PROVIDERS: PCP Nurse Practitioner; Referring Provider Nurse Practitioner; Visit Provider Nurse Practitioner
DX: Z01.812 Encounter for preprocedural laboratory examination (principal)
CPT/HCPCS: 36415; 80053

== ENCOUNTER → 2023-09-23 15:12 | Outpatient (CLI) | payer MEDICARE, OTHER, SELFPAY ==
[2023-02-27 11:50] VITALS: BMI 23.1
--- NOTE | 2023-09-23 15:13 | DI.US.S_ITS ---
PROCEDURE: US ABDOMEN LIMITED INDICATIONS: EPIGASTRIC PAIN AND EMESIS TECHNIQUE: Real-time scanning was performed of the abdominal and retroperitoneal organs, with image documentation. COMPARISON: None. FINDINGS: Liver: Coarsened echogenicity of the liver. Heterogeneous appearance of the right lobe. Multiple simple cysts, largest measuring 9 millimeters. Gallbladder: No gallstones or gallbladder wall thickening. Probable gallbladder polyp measuring 2.7 millimeters. Biliary ducts: Intrahepatic bile ducts are non-dilated. Extrahepatic bile duct caliber measures 7.5 mm, normal for patient's age. Pancreas: Visualized portions of the pancreas are sonographically normal. Aorta: Moderate plaques involving the proximal aorta with possible linear defect through the center of the aorta, concerning for dissection. Miscellaneous: No free abdominal fluid. Incidental note of a pericardial effusion. IMPRESSION: 1. Findings concerning for possible aortic dissection. Patient was sent to the emergency department for further evaluation. 2. Coarsened echogenicity of the liver, may represent chronic liver disease. Recommend clinical correlation. 3. Possible gallbladder polyp measuring 2.7 millimeters, statistically favored to be benign and no follow-up is necessary. 4. Incidental note of pericardial effusion. Dictated by: Moises Kaye M.D. on 09/23/2023 at 16:52 Approved by: Moises Kaye M.D. on 09/23/2023 at 16:55
== END ==
PROVIDERS: PCP Nurse Practitioner; Referring Provider Nurse Practitioner; Visit Provider Nurse Practitioner
DX: I31.39 Other pericardial effusion (noninflammatory) (principal); I70.0 Atherosclerosis of aorta; K76.89 Other specified diseases of liver; R10.13 Epigastric pain
CPT/HCPCS: 76705

== ENCOUNTER 2023-09-23 16:30 | Emergency (ER) | payer MEDICARE, OTHER, SELFPAY ==
[2023-02-27 11:50] VITALS: BMI 23.1
[2023-09-23 16:38] VITALS: BP 186/77; PULSE 65; RESP 18; TEMP 35.9; O2SAT 96; BMI 21.3
--- NOTE | 2023-09-23 16:40 | ED_ITS ---
HPI - Abdominal Pain General Chief Complaint: Recheck/Abnormal Lab/Rx Stated Complaint: PROXIMAL DISSECTION OF AORTA/sent by imaging Time Seen by Provider: 09/23/23 16:38 Source: patient, RN notes reviewed, old records reviewed and other ([employer] tech) Mode of arrival: Wheelchair Limitations: no limitations History of Present Illness HPI narrative: 83-year-old female with history of hypertension, coronary artery disease, peripheral neuropathy, endometrial cancer atrial fibrillation anticoagulated on enoxaparin. Patient presents from outpatient imaging she would an ultrasound today to evaluate her abdomen for epigastric pain. Patient states she is had several episodes of severe intense epigastric/abdominal pain. The last episode was August 20. cctv technician notes changes consistent with potential dissection patient sent to ED for emergent CT angio and workup. Patient states no active pain currently. No chest pain or shortness of breath. No syncope. No other GI or urinary symptoms currently. No tobacco, alcohol or illicit. Susie reveles as her primary care provider. Related Data Home Medications Medication Instructions Recorded Confirmed anastrozole 1 mg tablet 1 mg PO DAILY 08/06/21 09/22/23 enoxaparin 100 mg/mL subcutaneous 100 mg SUBCUT QAM 02/27/23 09/22/23 syringe (Lovenox) Previous Rx's Medication Instructions Recorded Compression Garments #1 ea 12/27/21 Disabled Parking Permit See Rx Instructions .Route 01/27/23 .COMPLEX #1 unit temazepam 7.5 mg capsule 15 mg (2 x 7.5 mg) PO BEDTIME PRN 02/25/23 sleep #180 caps duloxetine 60 mg capsule,delayed 60 mg PO BID #180 caps 04/29/23 release irbesartan 300 mg tablet See Rx Instructions .Route 06/02/23 .COMPLEX #90 tabs mirtazapine 45 mg tablet 45 mg PO BEDTIME #90 tabs 06/02/23 carvedilol 3.125 mg tablet 3.125 mg PO BID #180 tabs 07/01/23 niacin 1,000 mg tablet,extended 1,000 mg PO BEDTIME #90 tabs 07/29/23 release 24 hr oxycodone 10 mg tablet,crush 10 mg PO BID #60 tabs 09/02/23 resistant,extended release 12 hr (OxyContin) oxycodone 5 mg tablet 5 mg PO Q4H PRN pain #180 tabs 09/02/23 omeprazole 20 mg capsule,delayed 20 mg PO BID PRN acid reflux #180 09/08/23 release caps dicyclomine 20 mg tablet See Rx Instructions .Route 09/17/23 .COMPLEX #60 tabs Allergies Allergy/AdvReac Type Severity Reaction Status Date / Time Penicillins [PENICILLINS] Allergy Unknown Itchy Verified 09/22/23 11:11 Review of Systems Review of Systems ROS Unobtainable: All systems reviewed & are unremarkable except as noted in HPI and below Patient History Medical History Anemia History of thyroid nodule Continuous opioid dependence Chronic neoplasm-related pain COVID-19 determined by clinical diagnostic criteria Adverse reaction to statin medication Port-A-Cath in place Trigger finger, left ring finger Takotsubo cardiomyopathy (~06/2019) Malignant neoplasm of endometrium (~2006) Abdominal muscle pain Paronychia of finger of right hand Lymphedema of both lower extremities Systolic heart failure secondary to coronary artery disease (~06/29/19) Myocardial infarction (~06/2019) Cellulitis and abscess of leg Sepsis Osteoporosis Hyperlipidemia Essential hypertension Weight loss Vision abnormalities Chronic cough (~2014) Chickenpox Measles (~194) Mumps (~194) Colon polyps (~2011) Hypertension (~2010) Chronic pain of both lower extremities (01/22/18) 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 HEENT: Head normocephalic, atraumatic, EOMI, pupils reactive, face symmetric, moist mucous membranes NECK: Supple, full range of motion CARDIOVASCULAR: Regular rate and rhythm without murmurs, rubs or gallops. RESPIRATORY: Breath sounds equal bilaterally, no wheezes rales or rhonchi. ABDOMEN: Soft, nontender. Nondistended. Normoactive bowel sounds all 4 quadrants. No guarding or rebound, rigidity, no mass or pulsatile mass. No bruit. : No CVA tenderness EXTREMITIES: Normal range of motion, no clubbing or edema. Neurovascularly intact. +pulses bilateral lower extremities. NEUROLOGICAL: Cranial nerves II through XII grossly intact. Moving all extremities SKIN: Warm, dry, no petechiae, no rashes or lesions. Initial Vital Signs Initial Vital Signs: Vital Signs Temperature 96.6 F L 09/23/23 16:38 Pulse Rate 65 09/23/23 16:38 Respiratory Rate 18 09/23/23 16:38 Blood Pressure 186/77 H 09/23/23 16:38 Pulse Oximetry 96 09/23/23 16:38 Oxygen Delivery Method Room Air 09/23/23 16:38 Course Orders Ordered: ED Orders 09/23/23 16:38 EKG-12 Lead Stat 09/23/23 16:40 CT angio chest abdomen pelvis Stat 09/23/23 16:45 Complete Blood Count AUTO DIFF Stat Comprehensive Metabolic Panel Stat Lipase Stat NT-proBNP (BNP-Adult 18+) Stat PTT Partial Thromboplastin Shaka Stat Prothrombin Time INR Stat Troponin & CK Cardiac Panel Stat Vital Signs Vital signs: Vital Signs - 8 hr 09/23/23 16:38 09/23/23 17:04 Temperature 96.6 F L Pulse Rate 65 64 Respiratory Rate 18 20 Blood Pressure 186/77 H 178/73 H Pulse Oximetry 96 97 Oxygen Delivery Method Room Air Room Air MDM - Abdominal Pain Lab Data 09/23/23 16:45 09/23/23 16:45 Labs: Lab Results 09/23/23 Range/Units 16:45 WBC 4.9 (4.5-11.0) X10^3/uL RBC 4.17 (4.0-5.2) X10^6/uL Hgb 12.9 (12.0-16.0) g/dL Hct 38.0 (36-46) % MCV 91.2 (80-100) fL MCH 30.9 (26-34) PG MCHC 33.8 (30-36) % RDW 13.2 (11.6-14.8) % Plt Count 259 (150-400) X10^3/uL Neut % (Auto) 56.4 (50-75) % Lymph % (Auto) 33.8 (25-40) % Blaine % (Auto) 7.6 (3-14) % Eos % (Auto) 1.3 L (2-4) % Baso % (Auto) 0.9 (0-2) % Neut # (Auto) 2800 (0066-3852) /uL Lymph # (Auto) 1700 (7997-9320) /uL Blaine # (Auto) 400 (0-900) /uL Eos # (Auto) 100 (0-450) /uL Baso # (Auto) 0 (0-100) /uL PT 11.4 (9.4-12.5) SECONDS INR 1.0 (0.9-1.3) APTT 39 H (25.1-36.5) SECONDS Sodium 132 L (137-145) mmol/L Potassium 3.8 (3.4-5.1) mmol/L Chloride 95 L (98-107) mmol/L Carbon Dioxide 33 H (22-32) mmol/L BUN 15 (7-17) mg/dL Creatinine 0.85 (0.52-1.04) mg/dL Estimated GFR > 60 (>60) mL/min BUN/Creatinine Ratio 17.6 (6-22) Glucose 107 (80-110) mg/dL Calcium 9.4 (8.4-10.2) mg/dL Total Bilirubin 0.5 (0.2-1.3) mg/dL AST 31 (14-36) IU/L ALT 22 (<35) IU/L Alkaline Phosphatase 53 (38-126) U/L Total Creatine Kinase 43 (30-135) U/L Troponin I < 0.012 (0.01-0.034) ng/mL NT-Pro-B Natriuret Pep 99 (<450) pg/mL Total Protein 6.7 (6.3-8.2) g/dL Albumin 3.9 (3.5-5.0) g/dL Globulin 2.8 (1.7-4.1) g/dL Albumin/Globulin Ratio 1.4 (1.0-2.8) Lipase 85 (23-300) U/L Imaging Data CT angio chest/abd/pelvis: Radiologist's Impression: [address] [address] [address] Scan Report Signed Patient: Merly Trammell MR#: [id number] : 1940 Acct:[id number] Age/Sex: 83 / F Date of Service: 09/23/23 Loc: ED Accession Number: [id number] Procedure: CT angio chest abdomen pelvis Ordering Provider: Oliva Moses D.O. PROCEDURE: CT ANGIO CHEST ABDOMEN PELVIS INDICATIONS: epigastric/abd pain, last Nov. outpt US shows ? dissection TECHNIQUE: Precontrast 5 mm thick sections acquired from the lung apices to the iliac crests. After the administration of intravenous contrast, 2.5 mm thick sections again acquired from the lung apices to the iliac crests. Maximum intensity projection (MIP) oblique sagittal and coronal reformats were then acquired. For radiation dose reduction, the following was used: automated exposure control. COMPARISON: [facility], US, US ABDOMEN LIMITED, 09/23/2023, 15:47. [facility], CT, CT ANGIO CHEST PE PROTOCOL, 06/21/2019, 20:58. [facility], CT, CT CHEST ABD PEL W CON, 09/25/2018, 9:31. FINDINGS: Image quality: Excellent. AORTA: Ascending thoracic aorta measures 3.5 cm, unchanged. No dissection identified. Atherosclerotic calcifications are present within the aorta. CHEST: Lungs and pleura: No acute airspace opacities. Unchanged subcentimeter pulmonary nodules. Emphysematous changes are present. No pleural effusions or pneumothorax. Central and peripheral airways are patent and normal in caliber. Mediastinum: Heart size is enlarged. Mild pericardial effusion. No mediastinal or hilar adenopathy by size criteria. Central pulmonary arteries are normal in size. Esophagus is normal in caliber. No hiatal hernias. Bones and chest wall: No axillary adenopathy by size criteria. Thyroid gland is enlarged and heterogeneous, unchanged. . No suspicious bony lesions. No vertebral body compression fractures. ABDOMEN: Vasculature: Celiac trunk and mesenteric arteries are patent. Renal arteries are also patent. Solid organs: Liver is normal in size and enhancement. Simple hepatic cysts. Gallbladder is unremarkable . Biliary system is non dilated. Pancreas enhances normally. Spleen is normal in size and enhancement. No adrenal nodules. Both kidneys are normal in size and enhancement, without hydronephrosis. Peritoneum and bowel: No free fluid or air. Bowel loops are normal in caliber and wall thickness. Nodes and vessels: No retroperitoneal or mesenteric adenopathy by size criteria. Inferior vena cava is normal in morphology. Right iliac vein stent is present in the pelvis. 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 Miscellaneous: No ventral hernias. PELVIS: Genitourinary: Bladder wall thickness is normal. Miscellaneous: No inguinal hernias or adenopathy. No ventral hernias. Bones: No suspicious bony lesions. No vertebral body compression fractures. IMPRESSION: No evidence of dissection. Mild aneurysmal dilation of the ascending thoracic aorta, unchanged. Dictated by: Joan Pham M.D. on 09/23/2023 at 17:18 Approved by: Joan Pham M.D. on 09/23/2023 at 17:24 ECG Data Attestation: I personally reviewed and interpreted this ECG as follows: Interpretation: rate of 61, pr 190, qrs, qtc sinus rhythm left anterior fascicular block rate of 61 UT 190 QRS 88 QTC 416. MDM Narrative Medical decision making narrative: 83-year-old female presents with complaint of possible dissection on outpatient ultrasound that was obtained for having abdominal/epigastric pain her most recent episode was 08/20/2023. She denies any pain today or in the last several weeks. She had labs which showed no major changes. CT angiography which shows some mild aneurysmal dilation at 3.5 cm stable from prior imaging with no dissection identified and no other acute changes appreciated. Reviewed findings from today this should be followed regularly. We discussed the results if in aneurysm ruptures or if an individual has dissection and the need to return if she has new abdominal pain or other acute changes. Also discussed that when it becomes certain size there was surgically repair this so she should follow regularly. She was noted to be little hypertensive she states she was 114 yesterday so asked to follow her blood pressure regularly at home and if elevated needs to be adjusted with her primary care. Discharge Plan Departure Patient Disposition: Home Clinical Impression: Aneurysmal dilatation Activity Restrictions/Additional Instructions: Your CT angiography today shows some mild dilation of the aorta at 3.5 cm unchanged from prior imaging there is no dissection. This should be followed regularly with imaging to make sure it does not grow or change in size. Aneurysms that are large enough will be recommended to be surgically repaired to prevent rupture. Continue your home medications. Follow with your blood pressure regularly if it is persistently elevated you should have your medications adjusted. Please return for new or worsening symptoms new abdominal back or flank pain, chest pain, shortness of breath, numbness tingling extremities sensation or color changes or other new or concerning changes. Prescriptions: No Action Disabled Parking Permit See Rx Instructions .ROUTE .COMPLEX Qty: 1 0RF Rx Instructions: I find this patient to be medically disabled and qualify for disabled parking as indicated and signed on the accompanying disabled parking application for individuals. temazepam 7.5 mg capsule 15 mg PO BEDTIME PRN (Reason: sleep) Qty: 180 3RF Rx Instructions: Take 2 tabs at bedtime daily for insomnia as needed duloxetine 60 mg capsule,delayed release(DR/EC) 60 mg PO BID Qty: 180 3RF Rx Instructions: Take 1 capsule twice per day mirtazapine 45 mg tablet 45 mg PO BEDTIME Qty: 90 1RF irbesartan 300 mg tablet See Rx Instructions .ROUTE .COMPLEX Qty: 90 1RF Dose Instruction: TAKE 1 TABLET DAILY Rx Instructions: TAKE 1 TABLET DAILY carvedilol 3.125 mg tablet 3.125 mg PO BID Qty: 180 3RF niacin 1,000 mg tablet extended release 24 hr 1,000 mg PO BEDTIME Qty: 90 3RF Rx Instructions: Take 1 tab at bedtime daily oxycodone [OxyContin] 10 mg tablet,oral only,ext.rel.12 hr 10 mg PO BID Qty: 60 0RF Rx Instructions: EXEMPT oxycodone 5 mg tablet 5 mg PO Q4H PRN (Reason: pain) Qty: 180 0RF Rx Instructions: EXEMPT for malignant pain. dicyclomine 20 mg tablet See Rx Instructions .ROUTE .COMPLEX Qty: 60 3RF Dose Instruction: TAKE 1 TABLET BY MOUTH DAILY, INCREASE TO TWICE DAILY IF DIARRHEA PERSISTS, HOLD IF NO BOWEL MOVEMENT IN 2 DAYS Rx Instructions: TAKE 1 TABLET BY MOUTH DAILY, INCREASE TO TWICE DAILY IF DIARRHEA PERSISTS, HOLD IF NO BOWEL MOVEMENT IN 2 DAYS (DME) Compression Garments See Rx Instructions .Route .MEDSUPPLY Qty: 1 0RF Rx Instructions: Jobst thigh high, beige, size Medium, closed toe and heel, silcone dots anastrozole 1 mg tablet 1 mg PO DAILY omeprazole 20 mg capsule,delayed release(DR/EC) 20 mg PO BID PRN (Reason: acid reflux) Qty: 180 3RF enoxaparin [Lovenox] 100 mg/mL syringe 100 mg SUBCUT QAM Referrals: Susie Reveles ARNP [Primary Care Provider] - Stand Alone Forms: Patient Portal/API
[2023-09-23 16:52] LABS: Add Manual Diff / Slide Review NO; Basophils Absolute Auto 0 /uL (0-100); Basophils Percent Auto 0.9 % (0-2); Eosinophils Absolute Auto 100 /uL (0-450); Eosinophils Percent Auto 1.3 % (2-4); Hemoglobin 12.9 g/dL (12.0-16.0); Lymphocytes Absolute Auto 1700 /uL (1100-4500); Lymphocytes Percent Auto 33.8 % (25-40); Mean Corpuscular HGB Conc 33.8 % (30-36); Mean Corpuscular Hemoglobin 30.9 PG (26-34); Mean Corpuscular Volume 91.2 fL (80-100); Monocytes Absolute Auto 400 /uL (0-900); Monocytes Percent Auto 7.6 % (3-14); Neutrophils Absolute Auto 2800 /uL (1500-7000); Neutrophils Percent Auto 56.4 % (50-75); Platelet Count 259 X10^3/uL (150-400); Red Blood Cell Count 4.17 X10^6/uL (4.0-5.2); Red Cell Distribution Width 13.2 % (11.6-14.8); White Blood Cell Count 4.9 X10^3/uL (4.5-11.0)
--- NOTE | 2023-09-23 16:53 | PC.NURSE ---
Pt presented to the emergency department today following her outpatient abd US. US tech brought pt to ed due to possible aortic dissection. Denies pain, cp, sob, n/v, dizziness. Pt transferred from wheelchair to bed independently. VS WNL. Skin pink, warm and dry. Capillary refill less than 2 seconds. Answers questions appropriately. A&ox4
[2023-09-23 17:01] LABS: Prothrombin Time 11.4 SECONDS (9.4-12.5)
[2023-09-23 17:03] LABS: PTT Partial Thromboplastin Tim 39 SECONDS (25.1-36.5)
[2023-09-23 17:04] VITALS: BP 178/73; PULSE 64; RESP 20; O2SAT 97
[2023-09-23 17:06] LABS: Alanine Aminotransferase 22 IU/L (<35); Albumin 3.9 g/dL (3.5-5.0); Albumin Globulin Ratio 1.4 (1.0-2.8); Alkaline Phosphatase 53 U/L (38-126); Aspartate Aminotransferase 31 IU/L (14-36); BUN Creatinine Ratio 17.6 (6-22); Bilirubin Total 0.5 mg/dL (0.2-1.3); Blood Urea Nitrogen 15 mg/dL (7-17); Calcium 9.4 mg/dL (8.4-10.2); Carbon Dioxide 33 mmol/L (22-32); Chloride 95 mmol/L (98-107); Creatine Kinase 43 U/L (30-135); Estimated Glomerular Filt Rate > 60 mL/min (>60); Globulin 2.8 g/dL (1.7-4.1); Glucose 107 mg/dL (80-110); HEMOLYSIS < 15 (0-50); Lipase 85 U/L (23-300); Potassium 3.8 mmol/L (3.4-5.1); Sodium 132 mmol/L (137-145); Total Protein 6.7 g/dL (6.3-8.2)
[2023-09-23 17:16] LABS: NT-proBNP (BNP-Adult 18+) 99 pg/mL (<450)
[2023-09-23 17:18] LABS: Troponin I < 0.012 ng/mL (0.01-0.034)
== END 2023-09-23 18:10 | disposition home or self-care (01) ==
PROVIDERS: Emergency Provider Emergency Medicine; PCP Nurse Practitioner
DX: I71.21 Aneurysm of the ascending aorta, without rupture (principal); I70.0 Atherosclerosis of aorta; I31.39 Other pericardial effusion (noninflammatory); K76.89 Other specified diseases of liver; R10.13 Epigastric pain
CPT/HCPCS: 36415; 71275; 74174; 76705; 80053; 82550; 83690; 83880; 84484; 85025; 85610; 85730; 93005; 99284; Q9967

== ENCOUNTER 2023-10-07 14:26 | Day surgery (SDC) | payer MEDICARE, OTHER, SELFPAY ==
[2023-02-27 11:50] VITALS: BMI 23.1
--- NOTE | 2023-10-07 | PATH_ITS ---
[facility] Accession Number: [id number] No. of containers..02 Tissue . 01 Material submitted: . PART A: esophagus, E-G Junction - GE JUNCTION PART B: esophagus - DISTAL ESOPHAGUS . 01 Diagnosis: A. GE JUNCTION, BIOPSY: - COLUMNAR EPITHELIUM, NEGATIVE FOR INTESTINAL METAPLASIA. - SQUAMOUS EPITHELIUM WITH NO INCREASED INTRAEPITHELIAL EOSINOPHILS. - NEGATIVE FOR DYSPLASIA AND NEGATIVE FOR MALIGNANCY. -- B. ESOPHAGUS, DISTAL, BIOPSY: - SQUAMOUS EPITHELIUM WITH NO INCREASED INTRAEPITHELIAL EOSINOPHILS. - NEGATIVE FOR DYSPLASIA AND NEGATIVE FOR MALIGNANCY. TXN 10/16/2023 1318 Local . 01 Electronically signed: . Tajose m Cheema MD, Pathologist NPI- [id number] . 01 Gross description: . Part A: GE JUNCTION: Received in formalin is 2 fragment(s) of lopez, soft tissue measuring 0.4 x 0.2 x 0.2 cm to 0.2 x 0.2 x 0.1 cm submitted entirely in 1 cassette(s) Part B: DISTAL ESOPHAGUS: Received in formalin is 1 fragment(s) of lopez, soft tissue measuring 0.2 x 0.2 x 0.1 cm submitted entirely in 1 cassette(s) /AAY 10/09/2023 0110 Local . 01 Pathologist provided ICD-10: R13.19 . 01 CPT . 599208, [id number] Specimen Comment: A courtesy copy of this report has been sent to [phone] Performed at: 01 [facility] [address] [place] [address] [id number] MD Micheal Olvera MD Phone: [phone]
[2023-10-07] MEDS: LACTATED RINGERS 1,000 ML 42 ML IV (14:37)
[2023-10-07 14:53] VITALS: BP 134/65; PULSE 73; RESP 19; TEMP 37.1; O2SAT 96; BMI 21.4
--- NOTE | 2023-10-07 14:59 | PM.PREOP ---
Pre-operative Note COVID-19 COVID-19 status: Not tested Interval Note History & Physical reviewed/Exam performed by Physician: Yes Changes to H&P: No ASA Class (for procedural sedation): II
--- NOTE | 2023-10-07 15:32 | PM.OP.EGD ---
Operative Date/Time/Diagnoses Date of procedure: 10/07/23 Time of procedure: 15:33 Pre-op diagnosis: Dysphagia Post-op diagnosis: same Procedure & Clinicians Study performed: Esophagogastroduodenoscopy Same procedure as scheduled: Yes Surgeon: Kana Tovar Procedure Notes Procedure in detail: Surgeon: Kana Tovar MD Anesthesia: Dr. Junior Moss A timeout was performed. A bite blocked was placed. The patient was positioned in the left lateral decubitus position. Anesthesia was administered. The endoscope was inserted through the bite block and passed through the esophagus and stomach and into the duodenum. The duodenal mucosa appeared normal. The scope was withdrawn into the duodenal bulb and no other abnormalities were seen. The scope was withdrawn into the stomach. No abnormalities were seen. The scope was retroflexed and a small hiatal hernia was seen. The scope was withdrawn into the esophagus and some patches of salmon-colored mucosa were noted and biopsies were taken from the GE junction with cold forceps. There was also some irregular appearing mucosa in the distal esophagus just proximal to the GE junction. A random biopsy was taken with the cold forceps. The remainder of the esophagus was normal. The scope was withdrawn. The patient was awakened and brought to recovery. Sedation time: 14 minutes Findings: Some salmon-colored patches of mucosa at the GE junction and irregular appearing mucosa in the distal esophagus Post-procedure Disposition: PACU
[2023-10-07 15:35] VITALS: BP 114/58; PULSE 70; RESP 18; TEMP 37; O2SAT 97
[2023-10-07 15:40] VITALS: BP 118/70; PULSE 71; RESP 16; TEMP 36.9; O2SAT 97
[2023-10-07 15:45] VITALS: BP 122/74; PULSE 74; RESP 15; O2SAT 97
[2023-10-07 15:50] VITALS: BP 123/74; PULSE 72; RESP 18; O2SAT 98
== END 2023-10-07 16:08 | disposition home or self-care (01) ==
PROVIDERS: PCP Nurse Practitioner; Referring Provider Surgery; Visit Provider Surgery
PROC: 0DJ08ZZ Inspection of Upper Intestinal Tract, Via Natural or Artificial Opening Endoscopic (ICD-10-PCS; CPT 43235; principal; 2023-10-07 15:30)
DX: R13.10 Dysphagia, unspecified (principal)
CPT/HCPCS: 43239; J2704

== ENCOUNTER → 2023-12-04 15:46 | Outpatient (CLI) | payer MEDICARE, OTHER, SELFPAY ==
[2023-02-27 11:50] VITALS: BMI 23.1
[2023-12-04 18:30] LABS: Alanine Aminotransferase 18 IU/L (<35); Albumin 3.6 g/dL (3.5-5.0); Albumin Globulin Ratio 1.4 (1.0-2.8); Alkaline Phosphatase 43 U/L (38-126); Aspartate Aminotransferase 23 IU/L (14-36); Bilirubin Total 0.5 mg/dL (0.2-1.3); Blood Urea Nitrogen 19 mg/dL (7-17); Calcium 8.9 mg/dL (8.4-10.2); Carbon Dioxide 31 mmol/L (22-32); Chloride 93 mmol/L (98-107); Cholesterol 260 mg/dL (140-199); Estimated Glomerular Filt Rate > 60 mL/min (>60); Globulin 2.5 g/dL (1.7-4.1); Glucose 91 mg/dL (80-110); HEMOLYSIS < 15 (0-50); Potassium 3.8 mmol/L (3.4-5.1); Sodium 130 mmol/L (137-145); Total Protein 6.1 g/dL (6.3-8.2); Triglycerides 53 mg/dL (35-150)
[2023-12-04 18:40] LABS: HDL Cholesterol 136 mg/dL (40-60); LDL Cholesterol Calculated 113 mg/dL (<100)
[2023-12-04 20:09] LABS: Creatinine Urine Random 35.3 mg/dL
[2023-12-04 20:15] LABS: Microalbumi Creatinin Ratio Ur 19.8 ug/mg CR (<30); Microalbumin Urine Random 0.7 mg/dL (0-1.6)
== END ==
PROVIDERS: PCP Nurse Practitioner; Referring Provider Nurse Practitioner; Visit Provider Nurse Practitioner
DX: I10 Essential (primary) hypertension (principal); C54.1 Malignant neoplasm of endometrium; N17.9 Acute kidney failure, unspecified; I89.0 Lymphedema, not elsewhere classified; Z79.899 Other long term (current) drug therapy; E78.00 Pure hypercholesterolemia, unspecified
CPT/HCPCS: 36415; 80053; 80061; 82043; 82570; 86304

== ENCOUNTER → 2023-12-17 11:02 | Outpatient (CLI) | payer MEDICARE, OTHER, SELFPAY ==
[2023-02-27 11:50] VITALS: BMI 23.1
[2023-12-17 12:08] LABS: Add Manual Diff / Slide Review NO; Basophils Absolute Auto 0 /uL (0-100); Eosinophils Absolute Auto 100 /uL (0-450); Eosinophils Percent Auto 1.6 % (2-4); Hematocrit 34.9 % (36-46); Hemoglobin 11.9 g/dL (12.0-16.0); Lymphocytes Absolute Auto 1000 /uL (1100-4500); Lymphocytes Percent Auto 30.4 % (25-40); Mean Corpuscular HGB Conc 33.9 % (30-36); Mean Corpuscular Volume 91.5 fL (80-100); Monocytes Absolute Auto 400 /uL (0-900); Monocytes Percent Auto 10.9 % (3-14); Neutrophils Absolute Auto 1900 /uL (1500-7000); Neutrophils Percent Auto 56.1 % (50-75); Platelet Count 234 X10^3/uL (150-400); Red Blood Cell Count 3.82 X10^6/uL (4.0-5.2); White Blood Cell Count 3.4 X10^3/uL (4.5-11.0)
[2023-12-17 12:54] LABS: Free T3, Triiodothyronine Free 3.43 pg/mL (2.77-5.27); Free T4, Direct Thyroxine 1.02 ng/dL (0.78-2.19)
[2023-12-17 13:07] LABS: Thyroid Stimulating Hormone 2.04 uIU/mL (0.47-4.68)
== END ==
LOC: LAB 11:05
PROVIDERS: PCP Nurse Practitioner; Referring Provider Nurse Practitioner; Visit Provider Nurse Practitioner
DX: D50.9 Iron deficiency anemia, unspecified (principal); I10 Essential (primary) hypertension; R53.83 Other fatigue
CPT/HCPCS: 36415; 84439; 84443; 84481; 85025

== ENCOUNTER 2024-01-20 09:13 | Day surgery (SDC) | payer MEDICARE, OTHER, SELFPAY ==
[2023-02-27 11:50] VITALS: BMI 23.1
[2024-01-20 09:43] VITALS: BP 147/84; PULSE 78; RESP 16; TEMP 36.4; O2SAT 96
[2024-01-20] MEDS: LACTATED RINGERS 1,000 ML 100 ML IV (09:52)
--- NOTE | 2024-01-20 10:04 | PM.PREOP ---
Pre-operative Note COVID-19 COVID-19 status: Not tested Interval Note History & Physical reviewed/Exam performed by Physician: Yes Changes to H&P: No ASA Class (for procedural sedation): II
--- NOTE | 2024-01-20 10:41 | PM.OP.COLON ---
Operative Date/Time/Diagnoses Date of procedure: 01/20/24 Time of procedure: 10:41 Pre-op diagnosis: Rectal bleeding Post-op diagnosis: same Procedure & Clinicians Study performed: Colonoscopy Same procedure as scheduled: Yes Surgeon: Kana Tovar Procedure Notes Procedure in detail: Surgeon: Kana Tovar MD Anesthesia: Vivien Portillo CRNA Procedure: The patient was brought to the endoscopy suite, placed in left lateral decubitus position. The patient was connected to monitoring devices. A time-out was performed. Sedation was administered. Once the patient was adequately sedated, a digital rectal exam was performed and the anal sphincter was notably and diff consistent with her history of radiation. The scope was then inserted and advanced to the cecum where the appendiceal orifice was identified and photographed. The scope was then slowly withdrawn over greater than 6 minutes. The mucosa was thoroughly inspected. No abnormalities were seen. The distal rectum was rather friable consistent with the history of radiation. The scope could not be retroflexed due to the stiff narrow rectum. The patient was awakened and brought to recovery. Scope withdrawal time: 6 minutes Sedation time: 16 minutes EBL: 5 mL Findings: Friable distal rectal mucosa Post-procedure Disposition: PACU
[2024-01-20 10:48] VITALS: BP 157/84; PULSE 78; RESP 17; O2SAT 99
[2024-01-20 10:54] VITALS: BP 148/83; PULSE 80; RESP 15; TEMP 36.9; O2SAT 98
[2024-01-20 11:14] VITALS: BP 159/77; PULSE 69; RESP 16; TEMP 37; O2SAT 97
--- NOTE | 2024-01-20 11:17 | SUR.PHASEII ---
assumed care of pt from Herrera Stephenson RN . Pt is not passing gas and is encouraged to move around and try to pass gas.
[2024-01-20 11:37] VITALS: BP 150/76; PULSE 69; RESP 18; O2SAT 97
== END 2024-01-20 11:51 | disposition home or self-care (01) ==
PROVIDERS: PCP Nurse Practitioner; Referring Provider Surgery; Visit Provider Surgery
PROC: 0DJD8ZZ Inspection of Lower Intestinal Tract, Via Natural or Artificial Opening Endoscopic (ICD-10-PCS; CPT 45378; principal; 2024-01-20 10:00)
DX: K62.5 Hemorrhage of anus and rectum (principal)
CPT/HCPCS: 45378; J2704

== ENCOUNTER → 2024-02-02 14:51 | Outpatient (CLI) | payer MEDICARE, OTHER, SELFPAY ==
[2024-02-02 14:37] VITALS: BMI 23.1
[2024-02-02 15:40] LABS: Add Manual Diff / Slide Review NO; Basophils Absolute Auto 0 /uL (0-100); Basophils Percent Auto 0.9 % (0-2); Eosinophils Absolute Auto 0 /uL (0-450); Eosinophils Percent Auto 0.8 % (2-4); Hematocrit 35.1 % (36-46); Lymphocytes Absolute Auto 1000 /uL (1100-4500); Lymphocytes Percent Auto 23.7 % (25-40); Mean Corpuscular HGB Conc 34.2 % (30-36); Mean Corpuscular Hemoglobin 31.6 PG (26-34); Mean Corpuscular Volume 92.4 fL (80-100); Monocytes Absolute Auto 300 /uL (0-900); Monocytes Percent Auto 7.6 % (3-14); Neutrophils Absolute Auto 2800 /uL (1500-7000); Platelet Count 202 X10^3/uL (150-400); Red Cell Distribution Width 13.5 % (11.6-14.8); White Blood Cell Count 4.1 X10^3/uL (4.5-11.0)
[2024-02-02 15:58] LABS: HEMOLYSIS < 15 (0-50); Iron 64 ug/dL (37-170)
[2024-02-02 16:00] LABS: Alanine Aminotransferase 25 IU/L (<35); Albumin 3.7 g/dL (3.5-5.0); Albumin Globulin Ratio 1.6 (1.0-2.8); Alkaline Phosphatase 54 U/L (38-126); Aspartate Aminotransferase 34 IU/L (14-36); BUN Creatinine Ratio 25.6 (6-22); Bilirubin Total 0.3 mg/dL (0.2-1.3); Blood Urea Nitrogen 22 mg/dL (7-17); Calcium 9.1 mg/dL (8.4-10.2); Carbon Dioxide 35 mmol/L (22-32); Chloride 100 mmol/L (98-107); Estimated Glomerular Filt Rate > 60 mL/min (>60); Globulin 2.3 g/dL (1.7-4.1); Glucose 93 mg/dL (80-110); HEMOLYSIS < 15 (0-50); Potassium 4.1 mmol/L (3.4-5.1); Sodium 135 mmol/L (137-145)
[2024-02-02 16:11] LABS: Percent Iron Saturation 23 % (15-50); Total Iron Binding Capacity 283 ug/dL (265-497); Transferrin 245 mg/dL (206-381)
[2024-02-02 16:37] LABS: Ferritin 18 ng/mL (11-264)
[2024-02-02 16:52] LABS: Vitamin B12 256 pg/mL (239-931)
== END ==
LOC: LAB 14:51
PROVIDERS: PCP Nurse Practitioner; Referring Provider Nurse Practitioner; Visit Provider Nurse Practitioner
DX: D64.9 Anemia, unspecified (principal); E86.0 Dehydration; I48.91 Unspecified atrial fibrillation
CPT/HCPCS: 36415; 80053; 82607; 82728; 83540; 83550; 85025